=== PATIENT | male | born 1955 | race Caucasian/White ===

== ENCOUNTER 2024-06-26 20:30 | Inpatient (IN) | payer OTHER, SELFPAY ==
[2024-06-26] VITALS (7 sets, daily range): BP systolic 137–175; BP diastolic 82–112; BMI 23.5; BMI 23.8
[2024-06-26 17:32] LABS: % Basophils 0.3 % (0-2); % Eosinophils 1.7 % (0-6); % Immature Granulocytes 0.4 % (0-0.5); % Lymphocytes 9.7 % (20.5-51.1); % Monocytes 13.2 % (1.7-9.3); % Neutrophils 74.7 % (42.2-75.2); Absolute Basophils 0.1 10^3/uL (0-0.2); Absolute Eosinophils 0.2 10^3/uL (0-0.7); Absolute Immature Granulocytes 0.1 10^3/uL (0-0.05); Absolute Lymphocytes 1.4 10^3/uL (1.2-3.4); Absolute Monocytes 1.9 10^3/uL (0.1-0.6); Absolute Neutrophils 10.8 10^3/uL (1.4-6.5); Hematocrit 42.4 % (39.0-52.0); Hemoglobin 14.6 g/dL (13.0-18.0); Mean Corp Hgb Conc. 34.4 g/dL (33.0-37.0); Mean Corpuscular Hgb 29.6 pg (27.0-31.0); Mean Corpuscular Volume 85.8 fL (80.0-94.0); Mean Platelet Volume 10.1 fL (7.4-10.4); Nucleated Red Blood Cells % 0 % (-); Platelet Count 248 10^3/uL (130-400); Red Blood Cell Count 4.94 10^6/uL (4.70-6.10); Red Cell Dist. Width 13.7 % (11.5-14.5); White Blood Cell Count 14.4 10^3/uL (4.8-10.8)
[2024-06-26 17:39] LABS: Urine Albumin Trace (Neg - Trace); Urine Bilirubin Negative (Negative); Urine Character Clear (Clear); Urine Color Yellow; Urine Glucose Negative (Negative); Urine Ketone Negative (Negative); Urine Leukocyte Negative (Negative); Urine Nitrite Negative (Negative); Urine Occult Blood 4+ (Negative); Urine Specific Gravity 1.015 (<1.030); Urine Urobilinogen Negative (Neg - 1+)
[2024-06-26 17:41] LABS: ALT (SGPT) 31 U/L (0-50); AST (SGOT) 32 U/L (17-59); Albumin 4.2 g/dl (3.5-5.0); Alkaline Phosphatase 59 U/L (38-126); Blood Urea Nitrogen 31 mg/dl (9-20); Calcium 9.5 mg/dl (8.4-10.2); Carbon Dioxide 25 mmol/L (22-30); Chloride 101 mmol/L (98-107); Estimated Creatinine Clearance 45 ml/min; Glucose 120 mg/dl (70-99); Potassium 4.1 mmol/L (3.5-5.1); Sodium 141 mmol/L (135-145); Total Bilirubin 0.6 mg/dl (0.2-1.3); Total Protein 7.2 g/dl (6.3-8.2); eGFR 42.57
[2024-06-26 17:52] LABS: Urine Red Blood Cell 70-80 /HPF (0-2)
--- NOTE | 2024-06-26 18:27 | ED.GENMED ---
History of Present Illness
General
Chief Complaint: Urinary Symptoms
Source: patient
Exam Limitations: none
Time Seen by Provider: 06/26/24 17:38
Nursing documentation reviewed up to this point in time: agreed with
History of Present Illness
History of Present Illness:
Patient is a 69-year-old male with history of hemophilia, GERD presenting to the emergency department urinary discomfort. Patient states that over the past week he has been experiencing urinary hesitancy, frequency, urgency. He was seen by his
primary care last Friday where urinalysis performed and he was started on ciprofloxacin for a UTI. The urine culture showed bacteria was resistant to ciprofloxacin and patient was switched to amoxicillin 2 days ago. However�patient states symptoms
have persisted and he came to the emergency department for further evaluation. Patient reports a lingering feeling that he is not emptying his bladder and persistent urgency/hesitancy, urinary frequency. He denies any dysuria or hematuria.
Patient endorses associated low back pain and lower abdominal pain. He did have a low-grade temperature of 99.6F today at home for which she took Tylenol. Patient denies any nausea/vomiting.
Patient denies any history of kidney stones
Review of Systems
Review of Systems
Allergies reviewed?: Yes
All Other Systems: ROS reviewed and negative except as documented in HPI and ROS
Phy Exam
Physical Exam
Physical Exam:
Vitals: Tachycardic, hypertensive, otherwise vital signs stable. Afebrile
General: Patient is well appearing, no acute distress. Nontoxic-appearing
Skin: Warm and dry, no rashes or lesions
Head: Normocephalic, atraumatic
Eyes: Sclera nonicteric. EOMs intact. No nystagmus.
Throat: Protecting airway
Neck: Normal ROM, no cervical spine tenderness, no meningismus
Cardiac: Tachycardic, irregular rhythm, no murmurs.
Pulm: Normal respiratory effort, no wheezes, rales, rhonchi heard on exam.
Abdomen: Abdomen soft. Mildly distended. Mild abdominal tenderness in lower abdomen without rebound tenderness or guarding. No CVA tenderness
Extremities: No evidence of cyanosis or edema. Palpable distal pulses
Neuro: AAOx3. Grossly intact.
Psychiatric: Normal affect.
Sepsis
Sepsis Screening
Sepsis Assessment: Sepsis Ruled Out
Sepsis Screen
Sepsis Screen: Sepsis Ruled Out
Date: 06/26/24
Time: 21:48
Course
Orders/Labs/Results
Orders:
Orders
06/26/24 Breakfast
Cholesterol Lowering
Cholesterol Lowering: Sodium, 2 Gram
06/26/24 17:09
Complete Blood Count/With Diff Urgent
Comprehensive Metabolic Panel Urgent
06/26/24 17:22
Urinalysis Reflex To Culture Urgent
Date Specimen was Collected: 06/26/24
Time Specimen was Collected: 17:11
Urine Microscopic Reflex Cult Urgent
06/26/24 18:22
Abdomen/Pelvis wo Contrast CT [CT Abd/pelvis Wo Iv Cont] Urgent
Comment:
Reason For Exam: Lower abd pain, urinary hesitancy, low back pain
0.9% Sodium Chloride 1000 ml [Nss] 1,000 ml IV BOLUS
06/26/24 18:25
Electrocardiogram (*1) Urgent
Reason for Study: Bradycardia / Tachycardia
EKG- Treatment ONCE
06/26/24 19:08
Ritchie Placement- Treatment ONCE
Reason for insertion: Acute Retention
Metoprolol [Lopressor] 5 mg IV NOW STA
06/26/24 20:19
Admit/Transfer Patient As Directed
Co-Sign Provider:
Level of Care: Inpatient admission
Assign to:: Telemetry
Physician / Group: [email or web address]
Diagnosis: obstructive JUAN moderate bilateral hydroureteronephrosis Bladder outlet obs
Reason for Telemetry: Arrhythmia
Date to Stop Telemetry: 06/29/24
Time to Stop Telemetry: 11:00
Reason for Hospitalization: obstructive JUAN
moderate bilateral hydroureteronephrosis
Bladder outlet obstruction
fast AF
HX Hemophillia
Expected length of stay greater than two midnights?: Yes
ELOS- Estimated Length of Stay in days: 3
I certify the patient meets the requirements for IP care: Yes
06/26/24 20:23
Code Status As Directed
Resuscitation Status: Full Code
06/26/24 21:21
0.9% Sodium Chloride 1000 ml [Nss] 1,000 ml IV 80 mls/hr
Bisacodyl [Dulcolax] 10 mg PO DAILYPRN PRN
Bisacodyl [Dulcolax] 10 mg RECTAL [id number] PRN
Docusate W/Senna [Senokot-S] 1 tablet PO BIDPRN PRN
Metoprolol [Lopressor] 5 mg IV Q4HPRN PRN
Polyethylene Glycol Powder [Miralax] 17 grams PO DAILYPRN PRN
Pravastatin Sodium [Pravachol] 20 mg PO Q48H
phenazopyridine 95 mg PO DAILYPRN PRN
06/26/24 21:21
CARDIOLOGY CONSULT Routine
Consulting Provider: Stas Wen
Was physician already notified: Yes
Reason for consult: fast AF, nl LVEF, Obstrutive nephro , Mod b/l HN, CT suggest Bladder outlet
ONCOLOGY CONSULT Routine
Consulting Provider: Jez Orozco
Was physician already notified: Yes
Reason for consult: Hemophilia, Obstrutive nephro , Mod b/l HN, CT suggest Bladder outlet Obst
UROLOGY CONSULT Routine
Consulting Provider: Farhad Kim
Was physician already notified: Yes
Comment: Obstrutive nephro , Mod b/l HN, CT suggest Bladder outlet Obst
Activity As Directed
Activity Level: With Assistance
Intake/ Output As Directed
Frequency: Per unit guidelines
Pneumatic Compression Sleeves As Directed
Type: Knee high
Vital Signs As Directed
Frequency: Per unit guidelines
Weight As Directed
Frequency: Daily
DX Deep Vein Thrombosis Video Routine
06/26/24 22:00
Acetaminophen [Tylenol] 650 mg PO TID
Diltiazem [Cardizem] 30 mg PO QID
06/27/24 06:00
Basic Metabolic Panel IN AM
Complete Blood Count/No Diff IN AM
PTT IN AM
Prothrombin Time IN AM
06/29/24 11:00
DC Protocol for Telemetry ONCE
Abnormal Lab Results
06/26/24 06/26/24
17:09 17:22
WBC 14.4 H 10^3/uL
(4.8-10.8)
Abs Immat Gran (auto) 0.1 H 10^3/uL
(0-0.05)
Absolute Neuts (auto) 10.8 H 10^3/uL
(1.4-6.5)
Absolute Monos (auto) 1.9 H 10^3/uL
(0.1-0.6)
Lymphocytes % 9.7 L %
(20.5-51.1)
Monocytes % 13.2 H %
(1.7-9.3)
BUN 31 H mg/dl
(9-20)
Creatinine 1.7 H mg/dL
(0.7-1.3)
Glucose 120 H mg/dl
(70-99)
Ur Occult Blood Reflex 4+ A
(Negative)
Urine RBC 70-80 A /HPF
(0-2)
06/26/24 17:09
06/26/24 17:09
Vital Signs
Initial and Last Documented VS:
Initial Vital Signs
Temp Pulse Resp BP Pulse Ox
98.3 F 117 20 163/108 98
06/26/24 16:42 06/26/24 16:42 06/26/24 16:42 06/26/24 16:42 06/26/24 16:42
Last Documented Vital Signs
Temp Pulse Resp BP Pulse Ox
98.7 F 111 16 152/104 94
06/26/24 21:20 06/26/24 21:20 06/26/24 21:20 06/26/24 21:20 06/26/24 21:20
MDM/Problems Addressed
Differential Diagnosis Includes:
Not limited to: Cystitis, pyelonephritis, kidney stone, prostatitis, diverticulitis, appendicitis,
MDM/Problems Addressed:
Patient is a 69-year-old male presenting with urinary hesitancy/urgency currently being treated for UTI for the past week. Reports abdominal discomfort along with low back pain. Low-grade temp at home. No nausea/vomiting. Patient hypertensive
and tachycardic on arrival. He is afebrile. Physical exam as above. Basic labs obtained in triage significant for leukocytosis of 14.4. Renal insufficiency noted with creatinine of 1.7�no baseline for comparison. Otherwise no clinically
significant abnormalities. Urinalysis shows no signs of infection, however 70�80 RBCs. Did review urinalysis performed last week by PCP�which on my assessment is not consistent with UTI. Given creatinine elevation with persistent urinary
symptoms�concern for possibly obstructive process. Will obtain noncontrast CT abdomen/pelvis to rule out kidney stone versus other obstructive process. Given tachycardia and irregular rhythm seen on monitor�will obtain EKG.
EKG confirms new onset atrial fibrillation. Heart rate seems to range from upper 90s�110s. Patient is hypertensive. Will give [address] shows bilateral hydronephrosis and significant distention of urinary bladder likely secondary to
urinary bladder outlet obstruction from prostate gland enlargement.
Patient is in acute urinary retention with renal insufficiency likely obstructive JUAN. A Ritchie catheter was placed by nursing which drained 1800 cc of urine. Patient with immediate relief in discomfort. Given acute urinary retention with renal
insufficiency along with presumed new onset atrial fibrillation�feel patient will benefit from admission to the hospital for creatinine trending along with rate/rhythm control of atrial fibrillation. Patient does have a history of hemophilia and
may need hematology input prior to anticoagulation initiation. Patient admitted to hospital service in stable condition. Case discussed with attending physician.
Chronic conditions affecting care:
N/A
Acute Exacerbation and/or Progression of Chronic Illness:
N/A
*Radiology
Radiology exam reviewed: preliminary read by ED provider and radiology read reviewed (Bilateral hydro ureter and significant bladder distention)
*Pulse Oximetry
Patient hypoxic: no
*EKG
Interpreted by ED Provider?: Yes
EKG Intrepretation Date: 06/26/24
Interpretation: abnormal
Comparison EKG: no comparison EKG present
Heart Rate: 109
Rate: tachycardiac
Rhythm: a-fib
Gore: normal axis
Interval: normal interval
QRS Pattern: normal QRS
Ischemia: no ischemia
*Cylinder Machine Operator Interpretation
Rate: tachycardiac
Interpretation: abnormal
Heart Rate: 104
*Critical Care Note
Total Time (30-74mins, 75-104mins- exclusive of procedures): Not Applicable
Data Reviewed
Review of Other/Old Records Reveals: Labs (Urinalysis performed outpatient last week -not consistent with UTI)
Patient Management
Discussion with other providers: Hospitalist
Escalation/DeEscalation of care consider admission/obs:
Admit for rate/rhythm control of new onset atrial fibrillation/further monitoring/trending of renal insufficiency
ED Attending Note
-
Portions of this chart may have been created with voice recognition software.� Occasional wrong word or��sound alike� substitutions may have occurred due to the inherent limitations of voice recognition software.
Discharge Plan
Departure
Patient Disposition: Admit
Date of Disposition: 06/26/24
Time of Disposition: 19:36
Presentation/result/management discussed w/ accepting MD/DO: Hospitalist
Discharge Problem:
Acute urinary retention, Atrial fibrillation, new onset, Acute renal failure due to urinary obstruction
Interventions
Interventions:
*Risk Screen - Suicide Last Done: 06/26/24 17:20
*General Assessment Last Done: 06/26/24 16:42
*Neglect/Abuse Screening Last Done: 06/26/24 17:20
ED- Fall Risk Assessment Last Done: 06/26/24 17:20
*ED COVID-19 Vaccine History Last Done: 06/26/24 17:20
*Nursing Disposition Last Done: 06/26/24 21:00
ED-Male Genitourinary Assessment Last Done: 06/26/24 17:20
Discharge Date and Time
Discharge Date/Time: 06/26/24 21:02
[2024-06-26] MEDS: NSS 1000 IV ×2 (18:28→22:24)
[2024-06-26] MEDS: LOPRESSOR 5 MG IV (19:27)
--- NOTE | 2024-06-26 20:12 | HPS.HSE ---
Addendum entered and electronically signed by Yonas Bowen MD 06/26/24 22:26:
Uro, Heme abd CBC card consulted
Original Note:
Family Physician
-
Family Physician: Manoj Pinto
Chief Complaint
-
urinary discomfort
History of Present Illness
HPI
69M HX hemophilia, HLD, GERD, HX Kidney stones pw urinary discomfort.
- report urinary hesitancy, frequency, urgency over last week
- seen by PCP last Friday ( 06/21/24 ) POS UA and on ciprofloxacin for a UTI.
- POS UCX but bacteria resistant to ciprofloxacin and patient was switched to amoxicillin 2 days ago
- reports symptoms have persisted and he came to the emergency department for further evaluation.
- report low-grade temperature of 99.6F today at home for which she took Tylenol.
ROS:
- denies any hematuria.
- denies any nausea/vomiting.
Medical History
Past Medical History
Past Medical History: Reports GERD, Hypercholesterolemia and Other (hemophilia )
Past Surgical History: Reports Other
Social History
Tobacco: Non-smoker
Alcohol: None
Drug: None
Family History
Family History: Not pertinent
Allergies / Home Medications
Allergies reflects when Allergies were last updated in [facility].
Home Medications with original date entered in [facility]
Allergy/Medication List:
Allergies
Allergy/AdvReac Type Severity Reaction Status Date / Time
simvastatin Allergy Unknown Verified 06/26/24 18:25
Home Medications
cholecalciferol (vitamin D3) 25 mcg (1,000 unit) tablet (Vitamin D3) 25 mcg PO DAILY 05/05/23
pravastatin 10 mg tablet 20 mg PO Q48H 05/05/23
acetaminophen 325 mg tablet (Tylenol) 650 mg PO TID 06/26/24
amoxicillin 500 mg tablet 500 mg PO Q8H 06/26/24
bisacodyl 5 mg tablet,delayed release (Dulcolax (bisacodyl)) 10 mg PO DAILYPRN PRN CONSTIPATION 06/26/24
phenazopyridine 95 mg tablet 95 mg PO DAILYPRN PRN MILD PAIN 06/26/24
Review of Systems
-
Constitutional: Reports No Symptoms
EENT: Reports No Symptoms
Respiratory: Reports No Symptoms
Cardiac: Reports No Symptoms
Abdomen/GI: Reports No Symptoms
: Reports See HPI, Dysuria and Urgency
Musculoskeletal: Reports No Symptoms
Skin: Reports No Symptoms
Neurological: Reports No Symptoms
Endocrine: Reports No Symptoms
Hematologic/Lymphatic: Reports No Symptoms
Psych: Reports No Symptoms
Physical Exam
Vital Signs
Vital Signs
Temp Pulse Resp BP Pulse Ox
98.3 F 122 13 162/112 100
06/26/24 16:42 06/26/24 19:27 06/26/24 19:00 06/26/24 19:27 06/26/24 19:00
Physical Exam
General: Well Developed, Well Nourished and No Apparent Distress
HEENT: NormoCephalic, Moist mucous membranes and Atraumatic
Respiratory: Clear
Cardiac: S1/S2 and Regular Rhythm; No Murmur or Rub
GI: Soft, Non Tender, Non Distended and Normal Bowel Sounds; No Organomegaly
Rectal: Deferred by Provider
Musculoskeletal: No Clubbing, No Cyanosis and No Edema
Skin: No Rash
Neuro: Nonfocal/grossly intact
Laboratory Results
-
06/26/24 17:09
06/26/24 17:09
Laboratory Results
Total Bilirubin 0.6 mg/dl (0.2-1.3) 06/26/24 17:09
AST 32 U/L (17-59) 06/26/24 17:09
ALT 31 U/L (0-50) 06/26/24 17:09
Alkaline Phosphatase 59 U/L (38-126) 06/26/24 17:09
Data Reviewed
-
CT Scan: Report Reviewed by me
Lab Data: Labs Reviewed by me
Impression/Plan
-
Reviewed VS: afebrile HR 122 BP 162/112 RR13 POx 100
Data
WCC 14.4
BUN 31
Cr 1.7 - no prior Cr
eGFR 45
UA : Many RBCS. WCC 3-5
CT Abd/pelvis Wo Iv Cont
Moderate bilateral hydroureteronephrosis and significant distention of the urinary bladder.
Findings suggest urinary bladder outlet obstruction and may be secondary to prostate gland enlargement.
EKG
ATRIAL FIBRILLATION WITH RAPID VENTRICULAR RESPONSE
ABNORMAL ECG
NO PREVIOUS ECGS AVAILABLE
10/30/18 TTE
Normal biventricular size and systolic function without regional wall motion abnormality.
Mild mitral regurgitation.
No prior study available for comparison.
No prior hospitalist admission:
ASSESSMENT & PLAN
UA not suggestive of UTI
Reports POS UCX for Enterococcus Faecalis resistant to ciprofloxacin and patient was switched to amoxicillin 2 days ago
- stop Augmentin
Acute bladder retention - drained 1.8 L with F cath placement
Renal insufficiency - Presumed obstructive JUAN
POS CT for moderate bilateral hydroureteronephrosis and significant distention of the urinary bladder.
Suggestive of Bladder outlet obstruction and may be secondary to prostate gland enlargement.
Of note; No prior baseline Cr data
- IVF
- c/w Phenazopyridine
- Urologist consult
Fast AF
Hemodynamically stable
Remote HX nl LVEF
- PO Diltiazem 30mg q6H
- IV Metoprolol 5mg q6h PRN > HR 125
- CBC card consult
HX Hereditary Hemophilia f/u at [facility] Manager Communication
- No active bleeding
- Heme consult in case AC indicated for A Fib
HLD on Pravastatin
DVT Px: SCD
Full code
IP MS
[2024-06-26] MEDS: CARDIZEM 30 MG PO (22:24)
--- NOTE | 2024-06-26 22:48 | PTCARENOTE ---
Patient received from emergency department. Vital signs and weight obtained. Medications reviewed with patient. Upon admission, patient expressed concerns about his amoxicillin and when he would receive his next dose. RN explained to him that
amoxicillin was not ordered based off of UA results per the provider`s history and physical note. Patient was still concerned about drug resistant organisms, concern passed to LEAD NURSE. Education reinforced
[2024-06-27 03:26] VITALS: BP 117/73
[2024-06-27 06:00] VITALS: BMI 23.6
[2024-06-27 06:50] LABS: INR 1.01; PT 13.6 Sec (11.4-14.6)
[2024-06-27 06:51] LABS: APTT 58.1 Sec (23.4-35.0)
[2024-06-27 07:00] VITALS: BP 126/81
[2024-06-27 07:03] LABS: Hematocrit 38.9 % (39.0-52.0); Hemoglobin 12.9 g/dL (13.0-18.0); Mean Corp Hgb Conc. 33.2 g/dL (33.0-37.0); Mean Corpuscular Hgb 29.8 pg (27.0-31.0); Mean Corpuscular Volume 89.8 fL (80.0-94.0); Mean Platelet Volume 10.2 fL (7.4-10.4); Platelet Count 213 10^3/uL (130-400); Red Blood Cell Count 4.33 10^6/uL (4.70-6.10); Red Cell Dist. Width 13.8 % (11.5-14.5); White Blood Cell Count 8.7 10^3/uL (4.8-10.8)
[2024-06-27 07:28] LABS: Blood Urea Nitrogen 26 mg/dl (9-20); Calcium 8.6 mg/dl (8.4-10.2); Carbon Dioxide 27 mmol/L (22-30); Chloride 108 mmol/L (98-107); Estimated Creatinine Clearance 55 ml/min; Glucose 94 mg/dl (70-99); Sodium 145 mmol/L (135-145); eGFR 53.74
[2024-06-27 07:34] LABS: Potassium 4.3 mmol/L (3.5-5.1)
[2024-06-27] MEDS: CARDIZEM 30 MG PO (09:03)
[2024-06-27] MEDS: NSS 1000 IV (09:38)
--- NOTE | 2024-06-27 11:11 | CONS.URO ---
Medical History
History of Present Illness
69M without prior urologic history, hx of hemophilia
Has routine prostate cancer screening with his PCP yearly - hx of normal DREs and PSAs in the past year
Some worsening BPH symptoms over past 2 years - slow stream, hesitancy, nocturia
Last week was dx with his first ever UTI and started on cipro
2 days ago switched to amoxicillin for Enterococcus per sensitivity testing
He presented to ER with persistent and worsening urinary symptoms and was admitted due to JUAN
CT showed severe bladder distension with bilateral hydroureteronephrosis likely due to reflux
Osman was placed with 1800cc output
Had rapid afib which improved after osman placement
Urology consulted for further recs
Past Medical History
Past Medical History: GERD, Hypercholesterolemia and Other (Hemophilia)
Social History
Tobacco: Non-smoker
Alcohol: None
Drug: None
Family History
Family History: Reviewed & Not Pertinent
Allergies/Home Medications
Allergies
Allergy/AdvReac Type Severity Reaction Status Date / Time
simvastatin Allergy Unknown Verified 06/26/24 18:25
Home Medications
�Medication �Instructions �Recorded �Confirmed �Type
cholecalciferol (vitamin D3) 25 25 mcg PO DAILY 05/05/23 06/26/24 History
mcg (1,000 unit) tablet (Vitamin
D3)
pravastatin 10 mg tablet 20 mg PO Q48H 05/05/23 06/26/24 History
acetaminophen 325 mg tablet 650 mg PO TID 06/26/24 06/26/24 History
(Tylenol)
amoxicillin 500 mg tablet 500 mg PO Q8H 06/26/24 06/26/24 History
bisacodyl 5 mg tablet,delayed 10 mg PO DAILYPRN PRN CONSTIPATION 06/26/24 06/26/24 History
release (Dulcolax (bisacodyl))
phenazopyridine 95 mg tablet 95 mg PO DAILYPRN PRN MILD PAIN 06/26/24 06/26/24 History
Physical Exam
Vital Signs
Vital Signs
Temp Pulse Resp BP Pulse Ox
98.7 F 97 18 126/81 97
06/27/24 07:00 06/27/24 07:00 06/27/24 07:00 06/27/24 07:00 06/27/24 08:45
Lab / Testing Results
Laboratory Results
06/27/24 06:34
06/27/24 06:34
Physical Exam
General: Well Developed, Well Nourished and No Apparent Distress
Respiratory: Clear and Non Labored Respirations
GI: Non Distended
Genito-urinary: Clear Urine and Osman Catheter
Skin: Warm and Dry
Neuro: AO x 3
Psych: Calm and Intact Judgement
Assessment / Plan
-
69M with hemophilia admitted with urinary retention with bilateral moderate hydronephrosis, likely reflux uropathy
Enterococcus UTI
Elevated creatinine 1.7 without known baseline
Catheter placed for 1800cc urine output
81cc prostate volume
- Recommend 10 day total antibiotic course for culture confirmed enterococcus UTI/prostatitis. Continue amoxicillin 500mg Q8 through 07/04
- Hydronephrosis likely due to ureteral reflux. Assuming improvement in JUAN here will reimage in outpatient follow up to confirm full resolution
- Maintain osman for 10-14 days to allow bladder decompression and healing
- Start tamsulosin 0.4mg daily and continue at discharge
- Outpatient trial of void and further discussion of intervention options if retention persists
Data Reviewed
-
CT Scan: Image personally visualized and interpreted
Lab Data: Labs Reviewed
--- NOTE | 2024-06-27 11:26 | CON.ONC ---
Plan
Plan
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
maintenance factor replacement based on levels he measured last year ( updated testing ordered) though with low CHADS-VASC score 1 may be able to avoid A/C and bleed risk moderate based on HAS-BLED scores that would be reasonable--
Patient History
Patient Medication
�Medication �Instructions �Recorded �Confirmed �Last Taken �Type
cholecalciferol (vitamin D3) 25 25 mcg PO DAILY 05/05/23 06/26/24 06/25/24 History
mcg (1,000 unit) tablet (Vitamin
D3)
pravastatin 10 mg tablet 20 mg PO Q48H 05/05/23 06/26/24 06/25/24 History
acetaminophen 325 mg tablet 650 mg PO TID 06/26/24 06/26/24 06/26/24 History
(Tylenol)
amoxicillin 500 mg tablet 500 mg PO Q8H 06/26/24 06/26/24 06/26/24 History
bisacodyl 5 mg tablet,delayed 10 mg PO DAILYPRN PRN CONSTIPATION 06/26/24 06/26/24 06/26/24 History
release (Dulcolax (bisacodyl))
phenazopyridine 95 mg tablet 95 mg PO DAILYPRN PRN MILD PAIN 06/26/24 06/26/24 06/21/24 History
Active Medications
Generic Name Dose Route Start Last Admin
Trade Name Freq PRN Reason Stop Dose Admin
Acetaminophen 650 mg 06/26/24 22:00
Acetaminophen 325 Mg Tablet PO 07/24/24 21:59
TIDPRN PRN
MILD PAIN
Bisacodyl 10 mg 06/26/24 21:21
Bisacodyl 5 Mg Enteric Coated Tablet PO 07/24/24 21:20
DAILYPRN PRN
CONSTIPATION
Bisacodyl 10 mg 06/26/24 21:21
Bisacodyl 10 Mg Rectal Suppository RECTAL 07/24/24 21:20
[id number] PRN
constipation
Diltiazem HCl 30 mg 06/26/24 22:00 06/27/24 09:03
Diltiazem 30 Mg Regular Release Tablet PO 07/24/24 21:59 30 mg
QID BRITANY Administration
Sodium Chloride 1,000 mls @ 80 mls/hr 06/26/24 21:21 06/27/24 09:38
Nss IV 1,000 mls
[id number] BRITANY Administration
Metoprolol Tartrate 5 mg 06/26/24 21:21
Metoprolol 5 Mg/5 Ml Vial IV 07/24/24 21:20
Q4HPRN PRN
HR > 125
Phenazopyridine HCl 100 mg 06/26/24 21:57
Phenazopyridine 100 Mg Tablet PO 07/24/24 21:56
DAILYPRN PRN
DYSURIA
Polyethylene Glycol 17 grams 06/26/24 21:21
Polyethylene Glycol Powder 17 Grams Packet PO 07/24/24 21:20
DAILYPRN PRN
constipation
Pravastatin Sodium 20 mg 06/27/24 18:00
Pravastatin 20 Mg Tablet PO 07/25/24 17:59
Q48H BRITANY
Senna/Docusate Sodium 1 tablet 06/26/24 21:21
Docusate W/Senna (Dagmar-Colace) Tablet PO 07/24/24 21:20
BIDPRN PRN
constipation
Sodium Chloride 0 flush 06/26/24 22:00
Sodium Chloride 0.9% (Flush) Syringe IV 07/24/24 21:59
PER PROTOCOL BRITANY
Physical Exam
Labs
Lab Results
WBC 8.7 10^3/uL (4.8-10.8) 11/10/24 06:34
RBC 4.33 10^6/uL (4.70-6.10) L 06/27/24 06:34
Hgb 12.9 g/dL (13.0-18.0) L 06/27/24 06:34
Hct 38.9 % (39.0-52.0) L 06/27/24 06:34
MCV 89.8 fL (80.0-94.0) 06/27/24 06:34
MCH 29.8 pg (27.0-31.0) 06/27/24 06:34
MCHC 33.2 g/dL (33.0-37.0) 06/27/24 06:34
RDW 13.8 % (11.5-14.5) 06/27/24 06:34
Plt Count 213 10^3/uL (130-400) 06/27/24 06:34
MPV 10.2 fL (7.4-10.4) 06/27/24 06:34
Abs Immat Gran (auto) 0.1 10^3/uL (0-0.05) H 06/26/24 17:09
Absolute Neuts (auto) 10.8 10^3/uL (1.4-6.5) H 06/26/24 17:09
Absolute Lymphs (auto) 1.4 10^3/uL (1.2-3.4) 06/26/24 17:09
Absolute Monos (auto) 1.9 10^3/uL (0.1-0.6) H 06/26/24 17:09
Absolute Eos (auto) 0.2 10^3/uL (0-0.7) 06/26/24 17:09
Absolute Basos (auto) 0.1 10^3/uL (0-0.2) 06/26/24 17:09
Immature Gran % 0.4 % (0-0.5) 06/26/24 17:09
Neutrophils % 74.7 % (42.2-75.2) 06/26/24 17:09
Lymphocytes % 9.7 % (20.5-51.1) L 06/26/24 17:09
Monocytes % 13.2 % (1.7-9.3) H 06/26/24 17:09
Eosinophils % 1.7 % (0-6) 06/26/24 17:09
Basophils % 0.3 % (0-2) 06/26/24 17:09
Creatinine 1.4 mg/dL (0.7-1.3) H 06/27/24 06:34
Vital Signs
Vital Signs
Temp Pulse Resp BP Pulse Ox
98.7 F 97 18 126/81 97
06/27/24 07:00 06/27/24 07:00 06/27/24 07:00 06/27/24 07:00 06/27/24 08:45
--- NOTE | 2024-06-27 12:00 | W.PN.HOSP.TC ---
Today's Communication/Plan
-
osman
antibiotics
stop ivf
rate control
2d echo
uro, heme and cards to see
Assessment / Plan
Assessment / Plan
Imaging
CTAP
IMPRESSION:
Moderate bilateral hydroureteronephrosis and significant distention of the urinary bladder. Findings suggest urinary bladder outlet obstruction and may be secondary to prostate gland enlargement.
Cr trend
1.7 to 1.4
EKG
Afib with RVR
Physical Exam
NAD, resting comfortably in bed
Scleral anicteric
Moist mucous membranes
No JVD
CTA bilateral
Normal S1-S2 no murmurs
Soft nontender nondistended bowel sounds active
No peripheral pitting edema
Moves extremities spontaneously
AAOx3
Assessment and Plan
JUAN secondary to Obstructive uropathy in the setting of acute urinary retention from BPH vs UTI/Prostatitis
-Unknown baseline Cr
-Monitor UOP
-Osman placed
-Avoid nephrotoxins and hypotension
-Follow renal function
-Uro following, started atb
Afib RVR
-uncontrolled rate
-monitor on tele
-po ccb qid ordered
-iv bb prn
-2d echo
-has hemophilia hx, therefore, heme and cards consulted to discuss AC rec's
Hemophilia
-Follows with [facility]
-Outpatient follow up
HLD
-Cotinie statin
Anticipated Discharge: 24 - 48 hours
Subjective/Interval History
-
Date of Service: June 27, 2024
Seen and examined. No new complaints. No acute overnight events
States that he is feeling significantly better improved comfort after Osman placement
States initially believed it was related to UTI. Urinating every hour for about for 15seconds
Objective Data
-
Labs:
Laboratory Results
06/27/24
06:34
WBC 8.7
Hgb 12.9 L
Hct 38.9 L
Plt Count 213
PT 13.6
INR 1.01
APTT 58.1 H
Sodium 145
Potassium 4.3
Chloride 108 H
Carbon Dioxide 27
BUN 26 H
Creatinine 1.4 H
Glucose 94
Calcium 8.6
Vital Signs:
Vital Signs
Temp Pulse Resp BP Pulse Ox
98.7 F 97 18 126/81 97
06/27/24 07:00 06/27/24 07:00 06/27/24 07:00 06/27/24 07:00 06/27/24 08:45
I&O
06/26/24 06/27/24 06/28/24
06:59 06:59 06:59
Output Total 2450 / 2450
Balance -2450 / -2450
[2024-06-27] MEDS: AMOXIL 500 MG PO ×2 (12:09→20:14)
[2024-06-27 12:10] VITALS: BP 143/74
--- NOTE | 2024-06-27 12:29 | CON.CAR ---
Consultation
Consultation Request
Date/Time Consultation Requested: 06/26/2024 at 2121 hrs
Date/Time Consultation Performed: 06/27/2024 at 1200 hrs
Requesting Provider: Yonas Bowen MD
Performing Provider: Stas Wen MD
Reason for Consultation: AFib, RVR with hemophilia
Medical History
-
Chief Complaint: presented to ER with urinary symptoms. AFib seen and consult requested
History of Present Illness:
Pt presented to ER for urinary symptoms.
Known UTI, BPH and urinary retention with hydro found.
No cardiac complaints.
-
-
Past Medical History
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
Past Surgical History: None (at age 21 spontaneous pneumothorax)
Social History
Tobacco: Smoker
Alcohol: Other (rare 1 every 2 weeks)
Drug: None
Living: With Family
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
Family History
Family History: CAD (father sudden presumed DC at 60)
Allergies / Home Medications
Allergy/AdvReac Type Severity Reaction Status Date / Time
simvastatin Allergy Unknown Verified 06/26/24 18:25
�Medication �Instructions �Recorded �Confirmed �Type
cholecalciferol (vitamin D3) 25 25 mcg PO DAILY 05/05/23 06/26/24 History
mcg (1,000 unit) tablet (Vitamin
D3)
pravastatin 10 mg tablet 20 mg PO Q48H 05/05/23 06/26/24 History
acetaminophen 325 mg tablet 650 mg PO TID 06/26/24 06/26/24 History
(Tylenol)
amoxicillin 500 mg tablet 500 mg PO Q8H 06/26/24 06/26/24 History
bisacodyl 5 mg tablet,delayed 10 mg PO DAILYPRN PRN CONSTIPATION 06/26/24 06/26/24 History
release (Dulcolax (bisacodyl))
phenazopyridine 95 mg tablet 95 mg PO DAILYPRN PRN MILD PAIN 06/26/24 06/26/24 History
Review of Systems
-
Respiratory: No Symptoms
Cardiac: No Symptoms
Physical Exam
Vital Signs
Temp Pulse Resp BP Pulse Ox
98.6 F 86 16 143/74 99
06/27/24 12:10 06/27/24 12:10 06/27/24 12:10 06/27/24 12:10 06/27/24 12:10
Lab Results
06/27/24 06:34
06/27/24 06:34
Physical Exam
General: Well Developed and Well Nourished
HEENT: Normocephalic and Anicteric
Respiratory: Clear
Cardiac: S1/S2 and Irregular Rhythm
GI: Soft and Non Tender
Genito-urinary: No Costovertebral Tender
Musculoskeletal: No Clubbing, No Cyanosis and No Edema
Skin: Warm and Dry
Neuro: AO x 3 and No Motor Deficits
Psych: Calm
Impression / Plan
-
AFib, asymptomatic, duration unknown
- Rate over 100 here
- Rhythm: so far persisting, pattern unknown
- [id number] is 1 at age 69.
- Hemophilia adds risk and complexity to management. See: https://haematologica.org/article/view/haematol.2021.799517 for a very nice discusison
- For now with his risk score I favor no anticoagulant
- Given his lack of symptoms I favor only rate control
- Some would be more aggressive and seek ablation and/or left atrial occlusion: I suggested discussion with his manager solution and a second opinion with another EP, perhaps downtown at [facility]
- All aspects of AFib reviewed with pt and his son. More than 75 min spent caring for pt today
- Will pursue standard rate control, echo, monitor rhythm. He will obtain a home ekg machine, Laverna
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
JUAN presumable from obstruction
UTI
Urinary retention
BPH
Mixed hyperlipidemia
Subjective:
No CP, palps, or dyspnea
Data Reviewed
-
EKG: Tracing Personally Visualized and interpreted (AFib 109 bpm)
Radiology: Report Reviewed by me (CT abd/pelvis: Moderate bilateral hydroureteronephrosis and significant distention of the urinary bladder. Findings suggest urinary bladder outlet obstruction and may be secondary to prostate gland enlargement. e
abdominal aorta is normal in caliber and contains mild calcified atherosclerosis) and Other (Echo report 2019: Mild MR o/w normal.)
Labs: Other (Holter report: rare premature contractions, several short asymptomatic runs of AT)
--- NOTE | 2024-06-27 15:25 | CM ---
CM met with pt bedside
Pt resides with his spouse who is quadriplegic
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
Pt is independent with his ADLs
Denies use of DMEs and financial insecurities
PCP- Manoj Pinto
Rx- [facility]
Ritchie placed
Discharge Disposition- home, no needs anticipated
[2024-06-27 15:42] VITALS: BP 134/85
[2024-06-27] MEDS: PRAVACHOL 20 MG PO (17:01)
[2024-06-27 19:55] VITALS: BP 123/73
[2024-06-27] MEDS: TOPROL XL 50 MG PO (20:14)
[2024-06-27 22:14] VITALS: BP 153/92
[2024-06-27] MEDS: LOPRESSOR 5 MG IV (22:22)
[2024-06-28] MEDS: AMOXIL 500 MG PO ×2 (03:08→11:38)
[2024-06-28 03:32] VITALS: BP 136/93
[2024-06-28 03:33] VITALS: BMI 23.5
[2024-06-28 07:47] VITALS: BP 139/96
--- NOTE | 2024-06-28 08:22 | W.PN.URO.CBU ---
Today's Communication / Plan
-
Discharge with osman
Continue tamsulosin at discharge
Complete antibiotic course
Office will call to schedule follow up
Urology will sign off - please call with questions
Assessment / Plan
-
69M with hemophilia admitted with urinary retention with bilateral moderate hydronephrosis, likely reflux uropathy
Enterococcus UTI
Elevated creatinine 1.7 without known baseline
Catheter placed for 1800cc urine output
81cc prostate volume
- Recommend 10 day total antibiotic course for culture confirmed enterococcus UTI/prostatitis. Continue amoxicillin 500mg Q8 through 07/04
- Hydronephrosis likely due to ureteral reflux. With improvement in JUAN will plan to reimage in outpatient follow up to confirm full resolution
- Maintain osman for 10-14 days to allow bladder decompression and healing
- Start tamsulosin 0.4mg daily and continue at discharge
- Outpatient trial of void and further discussion of intervention options if retention persists
Office will call to schedule follow up
Diagnosis
-
Date of Service: June 28, 2024
-
Patient Diagnosis:
Urinary retention
Hydronephrosis
UTI
Post Op Day:
Subjective
-
Feeling well today
No catheter issues
Objective
-
Vital Signs
Temp Pulse Resp BP Pulse Ox
98.4 F 117 16 139/96 98
06/28/24 07:47 06/28/24 07:47 06/28/24 07:47 06/28/24 07:47 06/28/24 07:47
Intake and Output
06/27/24 06/28/24 06/29/24
06:59 06:59 06:59
Intake Total 1700 / 1700
Output Total 2450 / 2450 4050 / 4050
Balance -2450 / -2450 -2350 / -2350
Intake:
Oral fluids 1200 / 1200
IV fluids (Total) 500 / 500
Output:
Urine, Osman 2450 / 2450 1300 / 1300
Urine, Voided 2750 / 2750
Laboratory Results
06/27/24 06:34
06/27/24 06:34
Physical Exam
-
General - well developed, well nourished, no acute distress
Chest - clear
- osman in place, clear
[2024-06-28] MEDS: FLOMAX 0.4 MG PO (08:45)
[2024-06-28] MEDS: TOPROL XL 50 MG PO (08:45)
[2024-06-28 10:30] LABS: ALT (SGPT) 27 U/L (0-50); AST (SGOT) 25 U/L (17-59); Albumin 3.6 g/dl (3.5-5.0); Alkaline Phosphatase 51 U/L (38-126); Blood Urea Nitrogen 24 mg/dl (9-20); Calcium 9.2 mg/dl (8.4-10.2); Carbon Dioxide 25 mmol/L (22-30); Chloride 104 mmol/L (98-107); Estimated Creatinine Clearance 70 ml/min; Glucose 135 mg/dl (70-99); Hemoglobin 13.9 g/dL (13.0-18.0); Mean Corp Hgb Conc. 33.1 g/dL (33.0-37.0); Mean Corpuscular Hgb 29.7 pg (27.0-31.0); Mean Corpuscular Volume 89.7 fL (80.0-94.0); Mean Platelet Volume 9.9 fL (7.4-10.4); Platelet Count 262 10^3/uL (130-400); Potassium 4.4 mmol/L (3.5-5.1); Red Blood Cell Count 4.68 10^6/uL (4.70-6.10); Red Cell Dist. Width 13.8 % (11.5-14.5); Sodium 143 mmol/L (135-145); Total Bilirubin 0.5 mg/dl (0.2-1.3); Total Protein 6.3 g/dl (6.3-8.2); eGFR > 60.00
--- NOTE | 2024-06-28 10:47 | CM ---
CM reviewed chart, met with patient bedside, offered VN, patient declining. CM reviewed IMM, patient refused to sign, provided with copy. Patient confirms he has transportation home. CM will continue to follow for all discharge planning needs.
Plan; home no needs.
--- NOTE | 2024-06-28 10:56 | W.PN.HOSP.TC ---
Addendum entered and electronically signed by Isaias Graham MD 06/28/24 14:32:
seen and examined by me independently in collaboration with the vice president medical affairs.
Lab data and imaging data reviewed.
Addendum as below :
Patient tolerating Ritchie and urine is clear without bleeding or clots. No fever or chills. Appreciate nephrology input. Plan is to keep the Ritchie catheter. Initiated on BPH medication. Complete the course of antibiotics with amoxicillin till
07/04.
Atrial fibrillation which is new onset noted. Asymptomatic. Rate still in high 100s at times. Discussed with cardiology. Will add Cardizem CD1 20 mg daily to his beta-da regimen. [place] not a candidate for prophylaxis because of low
[id number] score of 1. follow-up with cardiology as outpatient.
Patient understands the new diagnoses, treatments and follow-up plan.
Total time of discharge 35 minutes
Original Note:
Today's Communication/Plan
-
Discharge home after echo on oral abx and rate control medications with Ritchie
O/P follow up with cardiology, urology and PCP
Assessment / Plan
Assessment / Plan
Assessment:
69 M PMH hemophilia B, HLD, GERD, kidney stones and recent UTI treatment found to have new onset B/L HUIZAR with hydronephrosis found to be in a-fib.
Plan:
#JUAN secondary to Obstructive uropathy in the setting of acute urinary retention from BPH vs UTI/Prostatitis
-Unknown baseline Cr
-Currently down to 1.1, likely resolved
-Monitor UOP
-Ritchie placed, will continue on D/C for 10-14 days
-Avoid nephrotoxins and hypotension
-Follow renal function
-Uro following
-started amoxicillin, day 2
-Uro recs 10 day course
#Afib RVR
-uncontrolled rate
-monitor on tele
-P.o. metoprolol succinate
-P.o. calcium channel da
-iv bb prn
-2d echo pending
-ongoing risk benefit discussion with cards about A/C in setting of hemophilia, defer management to cardiology
#Hemophilia B
-Follows with [facility]
-Outpatient follow up
#HLD
-Continue home statin
Code: full code
Diet: cholesterol lowering
Dvt: SCDs
Anticipated Discharge: Today
Subjective/Interval History
-
Date of Service: June 28, 2024
pt currently in a-fib
Objective Data
-
Labs:
Laboratory Results
06/28/24
09:43
WBC 10.0
Hgb 13.9
Hct 42.0
Plt Count 262 D
Sodium 143
Potassium 4.4
Chloride 104
Carbon Dioxide 25
BUN 24 H
Creatinine 1.1
Glucose 135 H
Calcium 9.2
Total Bilirubin 0.5
AST 25
ALT 27
Alkaline Phosphatase 51
Vital Signs:
Vital Signs
Temp Pulse Resp BP Pulse Ox
98.4 F 117 16 139/96 98
06/28/24 07:47 06/28/24 07:47 06/28/24 07:47 06/28/24 07:47 06/28/24 08:40
I&O
06/27/24 06/28/24 06/29/24
06:59 06:59 06:59
Intake Total 1700 / 1700
Output Total 2450 / 2450 4050 / 4050
Balance -2450 / -2450 -2350 / -2350
Review of Systems
-
History Source: Patient
Constitutional: Reports No Symptoms
Respiratory: Reports No Symptoms
Cardiac: Reports No Symptoms
Abdomen/GI: Reports No Symptoms
Genitourinary: Reports No Symptoms
Physical Exam
-
General: Well Developed, Well Nourished, No Apparent Distress, Comfortable and Conversant
Respiratory: Clear to Auscultation
Cardiac: S1/S2 and Irregular Rhythm
GI: Soft, Nontender and Nondistended
Genito-urinary: Clear Urine and Ritchie
Musculoskeletal: No Edema
Skin: Warm and Dry
Neuro: Awake, Alert, Oriented and AO x 3
Psych: Calm and Intact Judgement/Insight
Data Reviewed
-
Labs: Labs Reviewed by me and Discussed with Physician
--- NOTE | 2024-06-28 11:21 | W.PN.ONC ---
Today's Communication / Plan
-
Apparently cardiology is recommending against anticoagulation at this time. Unclear whether his 5% factor IX activity may provide some form of anticoagulation.
Impression
Impression
Hemophilia B, roughly 5% activity
Plan
Plan
D/W patient issues related to mod 'stage' hemophilia B-- if extensive surgical interventin anticiapated whould transfer to [facility] for same pending urgency need or can arrange f/u as outpt; iwth regard afib-- if A/C deemed necessary he will require
maintenance factor replacement based on levels he measured last year ( updated testing ordered) though with low CHADS-VASC score 1 may be able to avoid A/C and bleed risk moderate based on HAS-BLED scores that would be reasonable--
Subjective/Objective
Subjective/Objective
He is feeling reasonably well. He reports no new symptoms. Physical examination is unchanged.
Vital Signs:
Vital Signs
Temp Pulse Resp BP Pulse Ox
98.4 F 117 16 139/96 98
06/28/24 07:47 06/28/24 07:47 06/28/24 07:47 06/28/24 07:47 06/28/24 08:40
Lab Results:
Laboratory Data
WBC 10.0 10^3/uL (4.8-10.8) 06/28/24 09:43
Hgb 13.9 g/dL (13.0-18.0) 06/28/24 09:43
Plt Count 262 10^3/uL (130-400) D 06/28/24 09:43
PT 13.6 Sec (11.4-14.6) 06/27/24 06:34
INR 1.01 06/27/24 06:34
APTT 58.1 Sec (23.4-35.0) H 06/27/24 06:34
eGFR > 60.00 06/28/24 09:43
[2024-06-28 11:26] VITALS: BP 123/88
[2024-06-28] MEDS: CARDIZEM CD 120 MG PO (13:33)
--- NOTE | 2024-06-28 13:59 | PTCARENOTE ---
Pt being discharged. Leg bag teaching done and leg bag placed on patient.
--- NOTE | 2024-06-28 14:17 | W.DCSUMMARY ---
Discharge Summary
Discharge Data
Date of Admission: 06/26/24
Date of Discharge: 06/28/24
-
Pending Results: No
Hospital Course
Discharging Physician : Santos Alvarez
Disposition : Home
Primary care physician : Dr. Manoj Pinto
Principal Discharge diagnosis : Bilateral bladder outlet obstruction with associated bilateral hydronephrosis
Chronic Discharge diagnosis : Hemophilia B, hyperlipidemia, GERD, kidney stones, A-fib with RVR,
Hospital Course : 69-year-old male past medical history of hemophilia, hyperlipidemia, GERD, kidney stones presents for approximately 1 week of urinary hesitancy, frequency and urgency. He was seen by his PCP prior to admission and treated for a
positive UTI on UA with ciprofloxacin. Culture returned resistant to Cipro and he was switched to amoxicillin 2 days prior to admission. In the ED patient had a urinalysis indicative of urinary tract infection. CT scan in ED demonstrated
moderate, bilateral hydronephrosis and significant dilatation of urinary bladder. Findings were significant to suggest urinary bladder outlet obstruction. Urology, hematology, cardiology were consulted and patient was admitted for further
management. During his stay patient was also found to be in atrial fibrillation, which is a new diagnosis for him. Cardiology started him on metoprolol succinate 50 twice daily by mouth for rate control. This was not fully controlling his rate so
he was also started on diltiazem XR 120 mg p.o. daily. His [id number] score is 1 and he has a history of hemophilia, making anticoagulation somewhat risky. Hematology was consulted who stated they are unsure if his hemophilia will provide
adequate anticoagulation for atrial fibrillation. Cardiology was also consulted, due to his [id number] or of 1 they are currently not recommending him to be started on anticoagulation. For his bladder outlet obstruction, urology recommended
starting him on a Ritchie catheter, and to continue for 10 to 14 days post discharge. They also recommended that he start tamsulosin and continue amoxicillin for a total of 10 days. While here he received 2 days of amoxicillin, 2 days outpatient and
was written a prescription for 6 more days totaling 10 days oral amoxicillin. Patient's creatinine began downtrending to within normal limits with the Ritchie catheter, he was stable for discharge and outpatient follow-up was coordinated. Patient
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 Urology appointment was set
up by phone before patient was discharged. Patient will continue his Ritchie catheter for 10 to 14 days or until seen by urology, he will start taking tamsulosin 0.4 p.o. daily and he will complete his course of oral amoxicillin. He was also started
on metoprolol succinate and diltiazem XR for rate control of his atrial fibrillation, and he will follow-up with cardiology outpatient. Patient was discharged home with outpatient specialist follow-up.
Important imaging findings :
06/26/2024 CT abdomen pelvis without IV contrast, impression:
Moderate bilateral hydroureteronephrosis and significant distention of the urinary bladder. Findings suggest urinary bladder outlet obstruction and may be secondary to prostate gland enlargement.
Procedure findings : Ritchie catheter placement
Discharge Plan
-
Patient Disposition: Home (Routine Discharge)
Discharge Diagnosis/Procedures: Bladder outlet obstruction , New onset atrial fibrillation
Condition: Good
Diet: Low Cholesterol
Activity: As tolerated
Driving Restrictions: As prior to admission
Bathing Restrictions: None
Activity Restrictions/Additional Instructions:
[facility] - [phone] Kim's office will call to schedule catheter removal and follow up to discuss enlarged prostate
Follow up with Dr. Kim, urology. They will call to schedule appointment
Follow up with your PCP Dr Pinto within one week of discharge
Follow up with cardiology in one month of discharge for further discussion of your a-fib management
Follow up with hematology at [place] at discharge
Referrals:
Farhad Kim MD [Active] - in one to two weeks
Manoj Pinto DO [Family Provider] - in less than 1 week
Stas Wen MD [Active] - in two weeks
Additional Discharge Medication Instructions: Please continue with the Ritchie for 10-14 days
Start Tamsulosin 0.4 by mouth daily
Start metoprolol succinate 50 by mouth twice daily
Start Diltiazem 120 XR by mouth daily
Continue amoxicillin 500 every 8 hours by mouth until 07/04/24
Prescriptions:
New
diltiazem HCl 120 mg Capsule,Extended Release 24hr
120 mg PO NOW Qty: 90 1RF
tamsulosin 0.4 mg Capsule
0.4 mg PO HS Qty: 60 0RF
metoprolol succinate 50 mg Tablet Extended Release 24 Hr
50 mg PO BID Qty: 60 2RF
Continued
pravastatin 10 mg Tablet
20 mg PO Q48H
Rx Instructions:
10 mg orally
cholecalciferol (vitamin D3) [Vitamin D3] 25 mcg (1,000 unit) Tablet
25 mcg PO DAILY
acetaminophen [Tylenol] 325 mg Tablet
650 mg PO TID
bisacodyl [Dulcolax (bisacodyl)] 5 mg Tablet,Delayed Release (Dr/Ec)
10 mg PO DAILYPRN PRN (Reason: CONSTIPATION)
amoxicillin 500 mg Tablet
500 mg PO Q8H Qty: 20 0RF
Rx Instructions:
q8H PO
Discontinued
phenazopyridine 95 mg Tablet
95 mg PO DAILYPRN PRN (Reason: MILD PAIN)
Discharge Orders:
Discharge Patient (As Directed); Ordered 06/28/24
Ordered By: Crescencio Alvarez
Discharge Date and Time
Discharge Date/Time: 06/28/24 14:36
Print Language: KENYAN
--- NOTE | 2024-06-28 17:49 | W.PN.CD ---
Today's Communication / Plan
-
Add dilt CD 120 qd to metoprolol ER 50 bid
May offer LISA/DCCV with coordination with outpt char filter operator as AFib may have been precipitated by urologic illness
Attempt at more definitive treatment with ablation is not unreasonable, that should be done at [facility] with heme available if pursued.
Over 50 min spent on pt care today
We will arrange followup through our office. Second opinion EP suggested again.
Impression / Plan
-
AFib, asymptomatic, duration unknown
- Rate over 100 here
- Rhythm: so far persisting, pattern unknown
- [id number] is 1 at age 69.
- Hemophilia adds risk and complexity to management. See: https://haematologica.org/article/view/haematol.2021.917225 for a very nice discusison
- For now with his risk score I favor no anticoagulant unless we choose to pursue sinus
- AFIb likelyl radha than 2 weeks old, wears chest strap HR monitor at home exercise
- Given his lack of symptoms I favor only rate control
- Some would be more aggressive and seek ablation and/or left atrial occlusion: I suggested discussion with his char filter operator and a second opinion with another EP, perhaps downtown at [facility]
- All aspects of AFib reviewed with pt and his son. More than 75 min spent caring for pt today
- Will pursue standard rate control, echo, monitor rhythm. He will obtain a home ekg machine, Kardia
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
JUAN presumable from obstruction
UTI
Urinary retention
BPH
Mixed hyperlipidemia
Subjective:
No CP, palps, or dyspnea
Echo today is normal.
Physical Exam
Vital Signs/Labs
Vital Signs
Temp Pulse Resp BP Pulse Ox
98.3 F 110 16 123/88 99
06/28/24 11:26 06/28/24 11:26 06/28/24 11:26 06/28/24 11:26 06/28/24 11:26
06/27/24 06/28/24 06/29/24
06:59 06:59 06:59
Actual Weight 81.25 kg 80.785 kg
06/28/24 09:43
06/28/24 09:43
PT 13.6 Sec (11.4-14.6) 06/27/24 06:34
INR 1.01 06/27/24 06:34
APTT 58.1 Sec (23.4-35.0) H 06/27/24 06:34
Physical Exam
Constitutional: No acute distress
Cardiovascular: Rhythm/rate is irregular and Pedal edema present
Respiratory: Respiratory effort normal and Lungs clear to auscul.
GI: Soft and Distention absent
Neuro/Psych: AO x 3
Data Reviewed
-
Date of Service: June 28, 2024
== END 2024-06-28 14:36 | disposition home or self-care (01) | DRG 725 ==
LOC: 4 WEST ACU 20:30
PROVIDERS: Emergency Medicine; ADMITTING PHYSICIAN Internal Medicine; ATTENDING PHYSICIAN Internal Medicine; CONSULT PHYSICIAN Internal Medicine Cardiovascular Disease; CONSULT PHYSICIAN Internal Medicine Hematology & Oncology; CONSULT PHYSICIAN Urology; EMERGENCY PHYSICIAN Emergency Medicine; FAMILY PHYSICIAN Internal Medicine
DX: N40.1 Benign prostatic hyperplasia with lower urinary tract symptoms (principal); D67 Hereditary factor IX deficiency; N13.6 Pyonephrosis; Z16.23 Resistance to quinolones and fluoroquinolones; N13.8 Other obstructive and reflux uropathy; N17.9 Acute kidney failure, unspecified; E78.2 Mixed hyperlipidemia; F17.200 Nicotine dependence, unspecified, uncomplicated; I48.91 Unspecified atrial fibrillation; K21.9 Gastro-esophageal reflux disease without esophagitis; Z88.8 Allergy status to other drugs, medicaments and biological substances; R33.8 Other retention of urine; R39.11 Hesitancy of micturition; R35.1 Nocturia; B95.2 Enterococcus as the cause of diseases classified elsewhere
CPT/HCPCS: 51702; 74176; 80048; 80053; 81003; 81015; 85025; 85027; 85250; 85610; 85730; 93005; 93306; 96374; 99285

== ENCOUNTER 2024-07-21 13:44 | Inpatient (IN) | payer OTHER, SELFPAY ==
[2024-07-21] VITALS (16 sets, daily range): BP systolic 105–137; BP diastolic 48–115; BMI 22.6
--- NOTE | 2024-07-21 11:13 | ED.GENMED ---
ED Provider Triage
<Bam Wilder PA-C - Last Filed: 07/21/24 11:15>
-
Patient seen by provider in Triage?: Seen in Triage
69-year-old male with history of hemophilia B presents with fatigue and lightheadedness. He notes orthostatic symptoms. He notes he is very pale. He has had a Osman catheter recently changed and has noticed blood in his bag. Looks pale at
triage. His heart rate at home was 160. EKG performed at triage will check labs type and screen. Will request for him to be in a room
Medical screening exam performed at triage by provider. Warrants further evaluation
History of Present Illness
<Bam Wilder PA-C - Last Filed: 07/21/24 11:15>
General
Chief Complaint: Heart Rate Problem
Time Seen by Provider: 07/21/24 11:26
<Blayne Rolon, - Last Filed: 07/21/24 13:27>
General
Source: patient
Exam Limitations: none
History of Present Illness
History of Present Illness:
See MDM
Past History
<Blayne Rolon, DO - Last Filed: 07/21/24 13:27>
Past History
ED Past Medical History: Other (Hemophilia)
ED Past Surgical History: None
Social History
Tobacco: Non-smoker
Alcohol: None
Phy Exam
<Blayne Rolon DO - Last Filed: 07/21/24 13:27>
Physical Exam
Physical Exam:
See MDM
Course
<Bam Wilder PA-C - Last Filed: 07/21/24 11:15>
Orders/Labs/Results
Orders:
Orders
07/21/24 10:56
Electrocardiogram (*1) Urgent
Reason for Study: Chest Pain
EKG- Treatment ONCE
07/21/24 11:28
Type+Screen Urgent
Complete Blood Count/With Diff Urgent
Comprehensive Metabolic Panel Urgent
Ferritin Urgent
Comment: ADD ON
Iron Urgent
Comment: ADD ON
TSH Reflex To Free T4 Urgent
Total Iron Binding Urgent
Comment: ADD ON
07/21/24 11:35
Diltiazem HCl [Cardizem] 10 mg IV NOW STA
07/21/24 11:37
Consult Urology [UROLOGY CONSULT] Routine
Consulting Provider: Farhad Kim
Was physician already notified: Yes
07/21/24 11:45
Electrocardiogram (*1) Urgent
Reason for Study: Shortness of Breath
EKG- Treatment ONCE
Tranexamic Acid 1000 mg/100 ml [Tranexamic Acid] 1,000 mg in 100 ml IV ONCE
07/21/24 12:23
ABO2 Urgent
BBK Wristband Number:
Associate notified that ABO2 has been ordered: [id number]
Date: 07/21/24
Time: 11:59
Arch Cushion Skiving Machine Operator ID: [id number]
Blood Bank Products [* Blood Bank Products] Urgent
Dr's Orders: Blayne Rolon DO
Blood Bank Products: *Packed RBC Leuko(PRBC's)
Quantity: 2
Transfuse Today: Yes
Reason: Bleeding
07/21/24 13:02
Continous Bladder Irrigation As Directed
Solution: 0.9NSS
Comment: flush osman if clots stopping urine draining
Keep urine: Free of clots
Other
07/21/24 13:17
Admit/Transfer Patient As Directed
Co-Sign Provider:
Level of Care: Inpatient admission
Assign to:: Telemetry
Physician / Group: veldanda, udaybhanu
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
Reason for Telemetry: Arrhythmia
Date to Stop Telemetry: 07/24/24
Time to Stop Telemetry: 11:00
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
Expected length of stay greater than two midnights?: Yes
ELOS- Estimated Length of Stay in days: 4
I certify the patient meets the requirements for IP care: Yes
Code Status As Directed
Resuscitation Status: Full Code
07/21/24 13:20
PRN Pain Medication Management As Directed
May give lesser potent ordered pain med per pt: Yes
preference::
Protocol:: Medication orders for pain may be administered in a
manner that supports deferring to patient preference
when the pt is:
- Requesting an ordered lesser potent pain medication.
Least to most potent pain medications are defined
as: acetaminophen < NSAID < tramadol < opioids
(morphine, oxycodone, hydromorphone).
- Requesting a lesser dose of the same medication IF
ORDERED.
- Requesting a less intrusive route of administration
if both routes are prescribed by the provider (PO <
IV).
07/21/24 13:23
Add On- LAB Urgent
Tests Added?: IRON, TIBC, Ferritin
07/21/24 13:24
HEMATOLOGY CONSULT Routine
Consulting Provider: Teja Heredia
Was physician already notified: Yes
Reason for consult: hematuria hemophilia b
07/21/24 14:00
CefTRIAXone [Rocephin] 1,000 mg IV Q24H
Sterile Water [Sterile Water For Injection] 10 ml IV Q24H
07/24/24 11:00
DC Protocol for Telemetry ONCE
Abnormal Lab Results
07/21/24
11:28
RBC 2.51 L 10^6/uL
(4.70-6.10)
Hgb 7.5 L g/dL
(13.0-18.0)
Hct 22.0 L %
(39.0-52.0)
MPV 10.9 H fL
(7.4-10.4)
Abs Immat Gran (auto) 0.1 H 10^3/uL
(0-0.05)
Absolute Neuts (auto) 8.1 H 10^3/uL
(1.4-6.5)
Absolute Monos (auto) 0.7 H 10^3/uL
(0.1-0.6)
Neutrophils % 80.6 H %
(42.2-75.2)
Lymphocytes % 11.5 L %
(20.5-51.1)
Glucose 135 H mg/dl
(70-99)
Total Protein 5.9 L g/dl
(6.3-8.2)
Crossmatch IS Only See Detail
07/21/24 11:28
07/21/24 11:28
Vital Signs
Initial and Last Documented VS:
Initial Vital Signs
Temp Pulse Resp BP Pulse Ox
98.0 F 89 18 107/83 100
07/21/24 11:11 07/21/24 11:11 07/21/24 11:11 07/21/24 11:11 07/21/24 11:11
Last Documented Vital Signs
Temp Pulse Resp BP Pulse Ox
98.0 F 88 19 128/115 100
07/21/24 11:11 07/21/24 13:00 07/21/24 12:15 07/21/24 13:00 07/21/24 13:00
<Blayne Rolon, DO - Last Filed: 07/21/24 13:27>
Orders/Labs/Results
Orders:
Orders
07/21/24 10:56
Electrocardiogram (*1) Urgent
Reason for Study: Chest Pain
EKG- Treatment ONCE
07/21/24 11:28
Type+Screen Urgent
Complete Blood Count/With Diff Urgent
Comprehensive Metabolic Panel Urgent
Ferritin Urgent
Comment: ADD ON
Iron Urgent
Comment: ADD ON
TSH Reflex To Free T4 Urgent
Total Iron Binding Urgent
Comment: ADD ON
07/21/24 11:35
Diltiazem HCl [Cardizem] 10 mg IV NOW STA
07/21/24 11:37
Consult Urology [UROLOGY CONSULT] Routine
Consulting Provider: Farhad Kim
Was physician already notified: Yes
07/21/24 11:45
Electrocardiogram (*1) Urgent
Reason for Study: Shortness of Breath
EKG- Treatment ONCE
Tranexamic Acid 1000 mg/100 ml [Tranexamic Acid] 1,000 mg in 100 ml IV ONCE
07/21/24 12:23
ABO2 Urgent
BBK Wristband Number:
Associate notified that ABO2 has been ordered: [id number]
Date: 07/21/24
Time: 11:59
Arch Cushion Skiving Machine Operator ID: [id number]
Blood Bank Products [* Blood Bank Products] Urgent
's Orders: Blayne Rolon DO
Blood Bank Products: *Packed RBC Leuko(PRBC's)
Quantity: 2
Transfuse Today: Yes
Reason: Bleeding
07/21/24 13:02
Continous Bladder Irrigation As Directed
Solution: 0.9NSS
Comment: flush osman if clots stopping urine draining
Keep urine: Free of clots
Other
07/21/24 13:17
Admit/Transfer Patient As Directed
Co-Sign Provider:
Level of Care: Inpatient admission
Assign to:: Telemetry
Physician / Group: talha dennison
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
Reason for Telemetry: Arrhythmia
Date to Stop Telemetry: 07/24/24
Time to Stop Telemetry: 11:00
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
Expected length of stay greater than two midnights?: Yes
ELOS- Estimated Length of Stay in days: 4
I certify the patient meets the requirements for IP care: Yes
Code Status As Directed
Resuscitation Status: Full Code
07/21/24 13:20
PRN Pain Medication Management As Directed
May give lesser potent ordered pain med per pt: Yes
preference::
Protocol:: Medication orders for pain may be administered in a
manner that supports deferring to patient preference
when the pt is:
- Requesting an ordered lesser potent pain medication.
Least to most potent pain medications are defined
as: acetaminophen < NSAID < tramadol < opioids
(morphine, oxycodone, hydromorphone).
- Requesting a lesser dose of the same medication IF
ORDERED.
- Requesting a less intrusive route of administration
if both routes are prescribed by the provider (PO <
IV).
07/21/24 13:23
Add On- LAB Urgent
Tests Added?: IRON, TIBC, Ferritin
07/21/24 13:24
HEMATOLOGY CONSULT Routine
Consulting Provider: Teja Heredia
Was physician already notified: Yes
Reason for consult: hematuria hemophilia b
07/21/24 14:00
CefTRIAXone [Rocephin] 1,000 mg IV Q24H
Sterile Water [Sterile Water For Injection] 10 ml IV Q24H
07/24/24 11:00
DC Protocol for Telemetry ONCE
Abnormal Lab Results
07/21/24
11:28
RBC 2.51 L 10^6/uL
(4.70-6.10)
Hgb 7.5 L g/dL
(13.0-18.0)
Hct 22.0 L %
(39.0-52.0)
MPV 10.9 H fL
(7.4-10.4)
Abs Immat Gran (auto) 0.1 H 10^3/uL
(0-0.05)
Absolute Neuts (auto) 8.1 H 10^3/uL
(1.4-6.5)
Absolute Monos (auto) 0.7 H 10^3/uL
(0.1-0.6)
Neutrophils % 80.6 H %
(42.2-75.2)
Lymphocytes % 11.5 L %
(20.5-51.1)
Glucose 135 H mg/dl
(70-99)
Total Protein 5.9 L g/dl
(6.3-8.2)
Crossmatch IS Only See Detail
07/21/24 11:28
07/21/24 11:28
Vital Signs
Initial and Last Documented VS:
Initial Vital Signs
Temp Pulse Resp BP Pulse Ox
98.0 F 89 18 107/83 100
07/21/24 11:11 07/21/24 11:11 07/21/24 11:11 07/21/24 11:11 07/21/24 11:11
Last Documented Vital Signs
Temp Pulse Resp BP Pulse Ox
98.0 F 88 19 128/115 100
07/21/24 11:11 07/21/24 13:00 07/21/24 12:15 07/21/24 13:00 07/21/24 13:00
<Blayne Rolon, DO - Last Filed: 07/21/24 13:27>
MDM/Problems Addressed
Differential Diagnosis Includes:
HPI and MDM Narrative:
69-year-old male presenting for evaluation of weakness, fatigue, dizziness and persistent hematuria. Patient has a history of BPH. He follows with urology and he was self cathing. There was concern that he irritated the prostate and urology
placed a catheter. Patient has been following with urology for persistent hematuria. The thought was watch and wait to see if the hematuria resolved. Patient concerned because it has not yet resolved. He does have a history of hemophilia B
Went into the room, patient does appear pale. Patient is tachycardic and irregular and EKG consistent with A-fib. He is not anticoagulated due to his hemophilia diagnosis. Will give dose of TXA and have urology
Physical exam
General: Mildly pale and fatigued
HEENT: protecting airway
Neck: appears supple
CV: No evidence of cyanosis. Tachycardic and irregular
Resp: No accessory muscle use
Abd: Non-distended. Soft and nontender
: Osman bag with helena blood
Extremities: No deformities
Neuro: alert
Psych: Normal affect
Skin: Pale
Problems Addressed including Acute and Chronic Conditions affecting care:
1. A-fib
Acuity: acute
Prognosis: unstable
Details: Before giving the IV Cardizem, patient appeared to auto convert to sinus rhythm
2. Hematuria
Acuity: acute
Prognosis: stable
Details: Given the persistent bleeding, will give dose of TXA
Updates
Patient auto converted to sinus rhythm
11:50 AM Case discussed with urology who will evaluate. Will start CBI
12:30 PM urology at bedside and patient started on CBI
Patient found to be anemic with hemoglobin of 7.5. Given the anticipation for persistent bleeding, patient consented for 2 units packed red blood cells.
Hematology spoke to pharmacy about giving 8200 units of recombinant. However, patient does not want to take his recombinant yet and wants to see if the bleeding resolves with CBI
Differential Diagnosis (but not limited to): Hematuria, A-fib
Testing considered: CT abdomen/pelvis
Drug therapy (if applicable): OTC meds, please see d/c instruction regarding Rx drugs
Amount and/or Complexity of Data Reviewed
Clinical info obtained from: Patient
External data reviewed: N/A
Labs I independently reviewed (but not limited to): Anemia
Radiology: N/A
Pulse Ox: not hypoxic
EKG independently reviewed: A-fib with RVR, normal axis, no STEMI
Cell Tester: A-fib
Critical Care: . The high probability of a clinically significant, sudden or life threatening deterioration of the cardiovascular/ system(s) required my full and direct attention, intervention and personal management. The aggregate critical care
time was 31 minutes. This time is in addition to time spent performing reported procedures but includes the following:
[x] Data Review and interpretation
[x] Patient assessment and monitoring of vital signs
[x] Documentation
[x] Medication orders and management
Risk of Complication:
Social Determinants of health: Good social support
Discussed with other providers: Urologist, scale expert, hospitalist
Escalation of Care includes Admit/Obs: Given the active bleeding and history of hemophilia, will admit
Occasional wrong word or 'sound a like' substitutions may have occurred due to the inherent limitations of voice recognition software. Read the chart carefully and recognize, using context, where substitutions have occurred.
<Blayne Rolon DO - Last Filed: 07/21/24 13:27>
*Critical Care Note
Total Time (30-74mins, 75-104mins- exclusive of procedures): 31 min
ED Attending Note
<Bam Wilder PA-C - Last Filed: 07/21/24 11:15>
-
Portions of this chart may have been created with voice recognition software.� Occasional wrong word or��sound alike� substitutions may have occurred due to the inherent limitations of voice recognition software.
Discharge Plan
Departure
Patient Disposition: Admit
Date of Disposition: 07/21/24
Time of Disposition: 12:31
Admit to: Med/Surg
Presentation/result/management discussed w/ accepting MD/DO: Hospitalist
Discharge Problem:
Hematuria, Symptomatic anemia
Prescriptions:
No Action
pravastatin 20 mg Tablet
20 mg PO QPM
cholecalciferol (vitamin D3) [Vitamin D3] 50 mcg (2,000 unit) Tablet
50 mcg PO QPM
metoprolol succinate 50 mg tablet extended release 24 hr
50 mg PO DAILY
tamsulosin 0.4 mg capsule
0.8 mg PO HS
Referrals:
Manoj Pinto DO [Family Provider] -
Interventions
Interventions:
*Risk Screen - Suicide Last Done: 07/21/24 11:13
*General Assessment Last Done: 07/21/24 11:13
*Neglect/Abuse Screening Last Done: 07/21/24 11:13
*ED COVID-19 Vaccine History Last Done: 07/21/24 11:28
ED- Cardiac Assessment Last Done: 07/21/24 11:28
ED- Pulmonary Assessment Last Done: 07/21/24 11:28
Discharge Date and Time
Print Language: ANGOLAN
[2024-07-21 11:53] LABS: % Basophils 0.2 % (0-2); % Eosinophils 0.1 % (0-6); % Immature Granulocytes 0.5 % (0-0.5); % Lymphocytes 11.5 % (20.5-51.1); % Monocytes 7.1 % (1.7-9.3); % Neutrophils 80.6 % (42.2-75.2); Absolute Immature Granulocytes 0.1 10^3/uL (0-0.05); Absolute Lymphocytes 1.2 10^3/uL (1.2-3.4); Absolute Monocytes 0.7 10^3/uL (0.1-0.6); Absolute Neutrophils 8.1 10^3/uL (1.4-6.5); Hemoglobin 7.5 g/dL (13.0-18.0); Mean Corp Hgb Conc. 34.1 g/dL (33.0-37.0); Mean Corpuscular Hgb 29.9 pg (27.0-31.0); Mean Corpuscular Volume 87.6 fL (80.0-94.0); Mean Platelet Volume 10.9 fL (7.4-10.4); Nucleated Red Blood Cells % 0 % (-); Platelet Count 167 10^3/uL (130-400); Red Blood Cell Count 2.51 10^6/uL (4.70-6.10); Red Cell Dist. Width 13.6 % (11.5-14.5); White Blood Cell Count 10.1 10^3/uL (4.8-10.8)
[2024-07-21] MEDS: TRANEXAMIC ACID 100 IV (11:55)
[2024-07-21 12:06] LABS: ALT (SGPT) 29 U/L (0-50); AST (SGOT) 29 U/L (17-59); Albumin 3.6 g/dl (3.5-5.0); Alkaline Phosphatase 42 U/L (38-126); Blood Urea Nitrogen 18 mg/dl (9-20); Calcium 8.7 mg/dl (8.4-10.2); Carbon Dioxide 24 mmol/L (22-30); Chloride 101 mmol/L (98-107); Glucose 135 mg/dl (70-99); Potassium 4.2 mmol/L (3.5-5.1); Sodium 135 mmol/L (135-145); Total Bilirubin 0.5 mg/dl (0.2-1.3); Total Protein 5.9 g/dl (6.3-8.2); eGFR > 60.00
--- NOTE | 2024-07-21 12:08 | PHANOTE ---
med rec note- patient has three dose (3 boxes) of Benefix (factor ix) 10,600? units in room with him, he was just recently put on it last time it was given 05/05/23 with us but nothing since that time.
[2024-07-21 12:37] LABS: TSH Reflex To Free T4 2.71 uIU/ml (0.47-4.68)
--- NOTE | 2024-07-21 12:42 | HPS.HSE ---
Family Physician
-
Family Physician: Manoj Pinto
Chief Complaint
-
Hematuria x 1 week with Ritchie catheter
History of Present Illness
69-year-old male with history of hemophilia be he presents with fatigue and lightheadedness along with orthostasis symptoms. He has been dealing with urinary retention that started 1 month ago requiring a Ritchie catheter at that time during his
admission 06/26/[address] showing moderate bilateral hydronephrosis with significant dilation of the urinary bladder suggesting urinary bladder outlet obstruction. He was also treated for UTI resistant to Cipro but okay with amoxicillin
10-day course. He was diagnosed with A-fib at that time was placed on metoprolol and diltiazem XR 120 mg daily but no anticoagulation due to risk of bleeding with history of hemophilia B. The patient reports as outpatient his Cardizem was DC'd and
he is maintained solely on metoprolol. He had trials of self cathing at home with intermittent flushing of the Ritchie catheter over the past month that have not seemed to help. He reports he has been self cathing and irrigating clots for the past
week. He also states the other day he was advised to drink 16 ounces every hour that he was awake. Both myself and Dr. Kim advised the patient the dangers of consuming too much water and advised him strongly to not attempt that again in the
future. Urology Dr. Kim is at bedside stating he believes the cause of the bleeding is from the prostate being irritated. At bedside he irrigated multiple clots and emptied at 1000 mL container with water and filled with multiple clots.
Patient has a three-way Ritchie catheter now in place with CBI to continue with intermittent irrigation of clots. He will be given single dose of Rocephin and be kept n.p.o. after midnight for possible procedure.
He was tachycardic in the ER at 160 bpm with a hemoglobin of 7.5 and prior baseline 13.9 06/28/2024. He denies fever, chills, headache, chest pain, palpitations, shortness of breath, cough, abdominal pain, nausea, vomiting, diarrhea, dysuria. He
has past medical history of hemophilia B, chronic Ritchie catheter due to urinary retention with prostate bleeding, Dx A-fib06/26/2024 palpitations, spontaneous pneumothorax requiring chest tube 1975, colonoscopy
Medical History
Past Medical History
Past Medical History: Reports Other
Additional Past Medical History:
hemophilia B
chronic Ritchie catheter x 1 month secondary to urinary retention
palpitations
Past Surgical History: Reports Other
Additional Past Surgical History:
chest tube 1975
colonoscopy
Social History
Tobacco: Non-smoker
Alcohol: None
Drug: None
Personal:
Living: With Family
Employment: Retired
Family History
Family History: Not pertinent
Allergies / Home Medications
Allergies reflects when Allergies were last updated in [employer].
Home Medications with original date entered in [employer]
Allergy/Medication List:
Allergies
Allergy/AdvReac Type Severity Reaction Status Date / Time
simvastatin Allergy Unknown Verified 07/21/24 11:15
Home Medications
cholecalciferol (vitamin D3) 50 mcg (2,000 unit) tablet (Vitamin D3) 50 mcg PO QPM Supplement 07/21/24
metoprolol succinate 50 mg tablet,extended release 24 hr 50 mg PO DAILY Heart disease/condition 07/21/24
pravastatin 20 mg tablet 20 mg PO QPM High Cholesterol 07/21/24
tamsulosin 0.4 mg capsule 0.8 mg PO HS Urinary issue 07/21/24
Review of Systems
-
History Source: Patient
A 12 point ROS was completed and negative except as noted: Yes
Constitutional: Reports Fatigue; Denies Fever or Chills
EENT: Denies Sore Throat or Runny Nose
Respiratory: Denies Cough or Trouble Breathing
Cardiac: Reports Palpitations; Denies Chest Pain, Diaphoresis or Syncope
Abdomen/GI: Denies Abdominal Pain, Nausea, Vomiting, Diarrhea, Constipated, Bloody Stools or Black Stools
: Reports Ritchie (With hematuria and clots)
Musculoskeletal: Denies Joint Pain or Edema
Skin: Denies Itching or Rash
Neurological: Reports Dizzy and Weakness; Denies Headache
Endocrine: Reports No Symptoms
Hematologic/Lymphatic: Reports Bleeding (Ritchie catheter)
Psych: Reports Calm
Physical Exam
Vital Signs
Vital Signs
Temp Pulse Resp BP Pulse Ox
98.0 F 96 20 119/74 100
07/21/24 11:11 07/21/24 12:00 07/21/24 12:00 07/21/24 12:00 07/21/24 12:00
Physical Exam
General: Comfortable and Conversant; No Pain, Fever or Chills
HEENT: NormoCephalic, Anicteric, Moist mucous membranes, PERRLA, [place] Conjunctivae and No Ptosis
Respiratory: Clear; No Wheezes, Rales or Rhonchi
Cardiac: S1/S2 and Tachycardia (Sinus 160 originally now 98 bpm); No Murmur, Rub, Gallop or Peripheral Edema
Breast: Deferred by me
GI: Soft, Non Tender, Non Distended, Normal Bowel Sounds and No Hepatosplenomegaly
Rectal: Deferred by Provider
Genito-urinary: Ritchie (Three-way Ritchie catheter present had Ritchie manually irrigated by urology at bedside with multiple clots removed) and Continuous Bladder Irrigation
Musculoskeletal: No Clubbing, No Cyanosis and No Edema
Skin: Warm and Dry; No Rash or Jaundice
Neuro: AO x 3, No Motor Deficits, Nonfocal/grossly intact, Cranial Nerves Intact and No Sensory Deficits; No Slurred Speech, Facial Droop or Tremors
Psych: Calm
Laboratory Results
-
07/21/24 11:28
07/21/24 11:28
Laboratory Results
Total Bilirubin 0.5 mg/dl (0.2-1.3) 07/21/24 11:28
AST 29 U/L (17-59) 07/21/24 11:28
ALT 29 U/L (0-50) 07/21/24 11:28
Alkaline Phosphatase 42 U/L (38-126) 07/21/24 11:28
Data Reviewed
-
Lab Data: Labs Reviewed by me
Impression/Plan
-
Impression/plan:
Admit to telemetry
#Symptomatic blood loss anemia/Hematuria due to Prostate bleed from chronic Ritchie with chronic intermittent catheterizations at home likely traumatic.
#BPH
Hx hemophilia B
-Had Ritchie catheter changed
-Hgb 7.5 <13.9 on 06/28/2024
-Type and screen, obtain blood consent
-Transfuse 2 units PRBC
-Tranexamic acid 1000 mg given in ER
-Continue Flomax 0.8 mg at bedtime
-Consult urology Dr. Kim at bedside
-Will monitor patient for Bleeding from Ritchie patient wanting to not give his Factor 10 ( 100 units) now that was advised by hematology Dr. Cardenas
-Consult Hematology
-Follow H&H
#Acute tachycardia due to blood loss anemia
HR 160 bpm
Patient given Cardizem 10 mg in ER
We will transfuse 2 units PRBC due to hemoglobin of 7.5
EKG: Normal sinus rhythm 98 bpm, QTc 423 MS
#Hx A-fib Dx 06/26/2024
-Continue metoprolol succinate 50 mg p.o. daily
-No aspirin or anticoagulation likely due to history of hemophilia B
-Patient follows with [facility]ology
2D echo 06/28/2024: EF 55 to 60%, no wall abnormality, no valvular disease no pulm HTN
#HLD
Continue pravastatin 20 mg every afternoon
#GERD Hx
No PPI listed
DVT prophylaxis
SCDs
Full code
--- NOTE | 2024-07-21 13:22 | W.PN.UPDATE ---
Update Note
Progress Note Update
This is addendum to the H&P written by Kiley Dominguez on 07/21/2024. Patient seen and examined independently with STAGE SETTING PAINTER APPRENTICE.
69-year-old male past medical history of recent diagnosis of atrial fibrillation not on anticoagulation due to hemophilia, hemophilia B, hyperlipidemia, GERD, kidney stones, presenting for ongoing difficulty voiding urine with hematuria with clots
and symptomatic anemia.
He was admitted from 06/26 to 06/28 for symptoms of urinary tract infection. He had CT scan which showed moderate bilateral hydronephrosis and evidence of urinary bladder outlet obstruction. He was also found to be in new onset atrial fibrillation.
He was started on metoprolol and Cardizem. Urology recommended Ritchie catheter, tamsulosin and course of antibiotics. He eventually had Ritchie catheter removed.
Hemoglobin is 7.5. Patient was initially tachycardic, EKG showed normal sinus rhythm with PVCs and given Cardizem.
Three-way catheter was placed. CBI to be started. Urology thinks hematuria is likely due to traumatic Ritchie catheter insertions in the setting of BPH/prostatic bleeding. Hematology was notified and recommended tranexamic acid. Factor X
administration was also recommended however patient has his own and would like to hold off for now since hematuria is currently improving. Hematology in agreement.
Ceftriaxone dose to be given for urinary tract infection prophylaxis.
[2024-07-21] MEDS: ROCEPHIN 1000 MG IV (13:35)
[2024-07-21] MEDS: STERILE WATER FOR INJECTION 10 ML IV (13:35)
[2024-07-21 13:37] LABS: Iron 108 ug/dl (49-181)
[2024-07-21 13:47] LABS: Percent Saturation 40 % (20-50); Total Iron Binding Capacity 267 ug/dl (261-462)
--- NOTE | 2024-07-21 13:48 | PHANOTE ---
Spoke with patient regarding BeneFIX - patient states that Dr. Jenna Locke at the [facility] [[phone]] manages his drug therapy and prefers that any recommendations for changes are discussed with her prior to implementation.
Patient brought 3 boxes of BeneFIX to the ED with him. It is noted that all 3 boxes have an expiration date of 05/17/24. Patient aware of the expiration and stated that he brought that to the attention of the prescriber and he was told that it is ok.
--- NOTE | 2024-07-21 16:06 | PTCARENOTE ---
Blood [facility] s unit # [id number] started @ 15:40 via Lt AC site, TAR repeatedly asking for verification. Blood bank notified.
--- NOTE | 2024-07-21 16:54 | PTCARENOTE ---
received pt from ER via stretcher, accompanied by ER staff. Pt AAO x3, DU well, able to transfer to bed with assist x1, no c/o dizziness. VSS. Placed on telemetry:NSR. On room air- pulse ox 100%, no SOB noted. Abd soft, rounded, to start
regular diet. Ritchie P/I large amts clear punch-colored urine, no leakage/clots noted; CBI's infusing as ordered. [facility]'s unit # [id number] completed; Unit # W [id number] currently infusing via Lt AC site without sx of infiltration. Resting in
bed at present, no c/o. Will continue to monitor.
[2024-07-21 17:11] LABS: Glucose - Point of Care 114 mg/dl (70-99)
[2024-07-21] MEDS: PRAVACHOL 20 MG PO (17:33)
[2024-07-21] MEDS: VITAMIN D3 (cholecalciferol) 50 MCG PO (17:33)
--- NOTE | 2024-07-21 17:40 | PTCARENOTE ---
[facility]'s unit #[id number] completed with out adverse effect; VSS. Pt resting comfortably at present; states he 'feels better'. Will continue to monitor.
--- NOTE | 2024-07-21 19:03 | CONS.URO ---
Consultation
-
Performing Provider: Julio
Reason for Consultation: Hematuria
Medical History
History of Present Illness
69M with recent large volume urinary retention likely due to chronic BPH/outlet obstruction, bilateral moderate hydronephrosis, likely reflux uropathy, Enterococcus UTI
Elevated creatinine 1.7 without known baseline
Catheter placed for 1800cc urine output
81cc prostate volume
He was discharged on tamsulosin and I saw him recently in follow up
Trial of void was attempted but patient unable to void x2
He was started on CIC pending further workup as he wanted to see Dr. Blandon per recommendation from PCP
During CIC developed gross hematuria which failed to resolve
A osman was placed and he began having clot issues
Was seen in our office 07/19 after larger catheter replaced and bladder was irrigated to remove clots
Given persistent bleeding and lightheadedness, he came to ER
Noted to be anemic
2 units of blood transfused and TXA given
A large 3 way osman was placed
I irrigated a large amount of clot from the bladder and started CBI
Past Medical History
Past Medical History: Other (hemophilia B, urinary retention, palpitations, a fib)
Past Surgical History: None
Social History
Tobacco: Non-smoker
Drug: None
Family History
Family History: Reviewed & Not Pertinent
Allergies/Home Medications
Allergies
Allergy/AdvReac Type Severity Reaction Status Date / Time
simvastatin Allergy joint pain Verified 07/21/24 15:36
Home Medications
�Medication �Instructions �Recorded �Confirmed �Type
cholecalciferol (vitamin D3) 50 50 mcg PO QPM Supplement 07/21/24 07/21/24 History
mcg (2,000 unit) tablet (Vitamin
D3)
metoprolol succinate 50 mg 50 mg PO DAILY Heart 07/21/24 07/21/24 History
tablet,extended release 24 hr disease/condition
pravastatin 20 mg tablet 20 mg PO QPM High Cholesterol 07/21/24 07/21/24 History
tamsulosin 0.4 mg capsule 0.8 mg PO MUST ENTER TIMES Urinary 07/21/24 07/21/24 History
issue
Physical Exam
Vital Signs
Vital Signs
Temp Pulse Resp BP Pulse Ox
98.2 F 77 16 111/55 100
07/21/24 17:40 07/21/24 17:40 07/21/24 17:40 07/21/24 17:40 07/21/24 17:52
Lab / Testing Results
Laboratory Results
07/21/24 11:28
Physical Exam
General: Well Developed and Other (pale)
Respiratory: Clear
GI: Soft, Non Tender and Non Distended
Genito-urinary: No Costovertebral Tend, Bloody Urine and Osman Catheter
Neuro: AO x 3
Psych: Calm and Intact Judgement
Assessment / Plan
-
69M with hemophilia B, recently admitted with urinary retention with bilateral moderate hydronephrosis, JUAN, UTI, 81cc prostate
JUAN resolved after osman placement
Failed trial of void outpatient and development of significant hematuria after starting CIC
Admitted with anemia and clot obstruction of catheter
- After removing large volume of clot, residual bleeding appears to be minimal
- Trend HGB - appears stable after 2 units transfused
- Continue CBI overnight
- NPO at [facility] for possible cystoscopy and fulguration if hematuria worsens
- Hematology recs for management of hemophilia B
- Recommend discharge with osman catheter - further CIC not advisable given significant bleeding probably from catheter trauma
Data Reviewed
-
CT Scan: Image personally visualized and interpreted
Lab Data: Labs Reviewed
Old Records: Reviewed
[2024-07-21 19:39] LABS: Hematocrit 25.4 % (39.0-52.0); Hemoglobin 8.7 g/dL (13.0-18.0)
[2024-07-21] MEDS: FLOMAX 0.8 MG PO (20:49)
[2024-07-21 21:34] LABS: Glucose - Point of Care 120 mg/dl (70-99)
[2024-07-22 04:14] LABS: Hematocrit 23.6 % (39.0-52.0); Hemoglobin 8.3 g/dL (13.0-18.0)
[2024-07-22 06:13] LABS: Glucose - Point of Care 97 mg/dl (70-99)
[2024-07-22 07:21] LABS: % Basophils 0.4 % (0-2); % Eosinophils 1.4 % (0-6); % Immature Granulocytes 0.5 % (0-0.5); % Lymphocytes 22.1 % (20.5-51.1); % Monocytes 9.6 % (1.7-9.3); Absolute Eosinophils 0.1 10^3/uL (0-0.7); Absolute Lymphocytes 1.7 10^3/uL (1.2-3.4); Absolute Monocytes 0.8 10^3/uL (0.1-0.6); Absolute Neutrophils 5.2 10^3/uL (1.4-6.5); Hematocrit 24.1 % (39.0-52.0); Hemoglobin 8.2 g/dL (13.0-18.0); Mean Corpuscular Volume 88.3 fL (80.0-94.0); Mean Platelet Volume 10.9 fL (7.4-10.4); Nucleated Red Blood Cells % 0 % (-); Platelet Count 131 10^3/uL (130-400); Red Blood Cell Count 2.73 10^6/uL (4.70-6.10); Red Cell Dist. Width 14.9 % (11.5-14.5); White Blood Cell Count 7.9 10^3/uL (4.8-10.8)
--- NOTE | 2024-07-22 07:30 | W.PN.UPDATE ---
Update Note
Progress Note Update
No active hematuria overnight
Urine clear on CBI
CBI clamped this AM
Observe for recurrent bleeding
Ambulate
[2024-07-22 07:50] LABS: Blood Urea Nitrogen 16 mg/dl (9-20); Calcium 8.5 mg/dl (8.4-10.2); Carbon Dioxide 26 mmol/L (22-30); Chloride 107 mmol/L (98-107); Estimated Creatinine Clearance 74 ml/min; Glucose 92 mg/dl (70-99); Potassium 4.2 mmol/L (3.5-5.1); Sodium 140 mmol/L (135-145); eGFR > 60.00
[2024-07-22 08:29] VITALS: BP 126/66
[2024-07-22] MEDS: TOPROL XL 50 MG PO (08:50)
--- NOTE | 2024-07-22 08:56 | CON.ONC ---
Impression
Impression
hemophilia B
urinary retention/BPH/chronic outlet obstruction
acute anemia Hgb 13.9 06/27 to 7.5g/dL on admission d/t ABLA/hematuria s/p 2 unit prbc 07/21
Plan
Plan
monitor for bleeding -consider Benefix if bleeding does not resolve
Osman management per urology
OP follow up with primary floor installation mechanic at [place]
Patient History
History of Present Illness
69yo M with chronic osman for urinary retention and hemophilia B presented fatigue, lightheadedness, and orthostasis. He has been working with urology for the past month regarding urinary retention likely from chronic BPH w outlet obstruction. He
has been trialing clean intermittent catheterization which unfortunately lead to gross hematuria. He has been admitted and started on CBI. He declined use of BeneFIX (patient has his own supply) for his hemophilia bleeding in hopes that bleeding
would resolve with CBI. He had no active bleeding overnight and urine remains pink in the osman this morning.
Clinically, he denies fever, chills, headache, chest pain, palpitations, shortness of breath, cough, abdominal pain, nausea, vomiting, diarrhea, dysuria. He tells me that he takes Benefix prior to procedures for bleeding ppx, last used prior to
colonoscopy last year without complications.
Past-Medical/Surgical History
PMH hemophilia B, BPH, chronic outlet obstruction, atrial fibrillation
[facility] chest tube 1976
Social never smoker, denies ETOH, denies recreational drugs, retired, lives with
Patient Medication
�Medication �Instructions �Recorded �Confirmed �Last Taken �Type
cholecalciferol (vitamin D3) 50 50 mcg PO QPM Supplement 07/21/24 07/21/24 07/20/24 16:00 History
mcg (2,000 unit) tablet (Vitamin
D3)
metoprolol succinate 50 mg 50 mg PO DAILY Heart 07/21/24 07/21/24 07/21/24 09:00 History
tablet,extended release 24 hr disease/condition
pravastatin 20 mg tablet 20 mg PO QPM High Cholesterol 07/21/24 07/21/24 07/20/24 16:00 History
tamsulosin 0.4 mg capsule 0.8 mg PO MUST ENTER TIMES Urinary 07/21/24 07/21/24 07/20/24 16:00 History
issue
Active Medications
Generic Name Dose Route Start Last Admin
Trade Name Frenicole PRN Reason Stop Dose Admin
Ceftriaxone Sodium 1,000 mg 07/21/24 14:00 07/21/24 13:35
Ceftriaxone 1000 Mg / 10 Ml Vial IV 1,000 mg
Q24H BRITANY Administration
Cholecalciferol 50 mcg 07/21/24 18:00 07/21/24 17:33
Cholecalciferol (Vitamin D3) 50 Mcg Tablet (2,000 Units) PO 08/18/24 17:59 50 mcg
QPM BRITANY Administration
Metoprolol Succinate 50 mg 07/22/24 08:00 07/22/24 08:50
Metoprolol 50 Mg Extended Release Tablet PO 08/19/24 07:59 50 mg
DAILY BRITANY Administration
Pravastatin Sodium 20 mg 07/21/24 18:00 07/21/24 17:33
Pravastatin 20 Mg Tablet PO 08/18/24 17:59 20 mg
QPM BRITANY Administration
Sodium Chloride 0 flush 07/21/24 16:00
Sodium Chloride 0.9% (Flush) Syringe IV 08/18/24 15:59
PER PROTOCOL BRITANY
Sterile Water 10 ml 07/21/24 14:00 07/21/24 13:35
Sterile Water For Injection 10 Ml Vial IV 08/18/24 13:59 10 ml
Q24H BRITANY Administration
Tamsulosin HCl 0.8 mg 07/21/24 22:00 07/21/24 20:49
Tamsulosin 0.4 Mg Capsule PO 08/18/24 21:59 0.8 mg
HS BRITANY Administration
Review of Systems
-
ROS notable for HPI, otherwise negative
Physical Exam
-
General: No Apparent Distress
HEENT: Moist Mucous Membranes; Negative Jaundice
Cardiology: Normal Sinus Rhythm
Pulmonary: Clear
GI: Soft
Genito-Urinary: Other (pink tinged urine)
Extremities: Pulses Present; Negative Edema
Neurology: Non Focal
Skin: Warm
Psych: Calm
Labs
Lab Results
WBC 7.9 10^3/uL (4.8-10.8) 07/22/24 06:50
RBC 2.73 10^6/uL (4.70-6.10) L 07/22/24 06:50
Hgb 8.2 g/dL (13.0-18.0) L 07/22/24 06:50
Hct 24.1 % (39.0-52.0) L 07/22/24 06:50
MCV 88.3 fL (80.0-94.0) 07/22/24 06:50
MCH 30.0 pg (27.0-31.0) 07/22/24 06:50
MCHC 34.0 g/dL (33.0-37.0) 07/22/24 06:50
RDW 14.9 % (11.5-14.5) H 07/22/24 06:50
Plt Count 131 10^3/uL (130-400) D 07/22/24 06:50
MPV 10.9 fL (7.4-10.4) H 07/22/24 06:50
Abs Immat Gran (auto) 0.0 10^3/uL (0-0.05) 07/22/24 06:50
Absolute Neuts (auto) 5.2 10^3/uL (1.4-6.5) 07/22/24 06:50
Absolute Lymphs (auto) 1.7 10^3/uL (1.2-3.4) 07/22/24 06:50
Absolute Monos (auto) 0.8 10^3/uL (0.1-0.6) H 07/22/24 06:50
Absolute Eos (auto) 0.1 10^3/uL (0-0.7) 07/22/24 06:50
Absolute Basos (auto) 0.0 10^3/uL (0-0.2) 07/22/24 06:50
Immature Gran % 0.5 % (0-0.5) 07/22/24 06:50
Neutrophils % 66.0 % (42.2-75.2) 07/22/24 06:50
Lymphocytes % 22.1 % (20.5-51.1) 07/22/24 06:50
Monocytes % 9.6 % (1.7-9.3) H 07/22/24 06:50
Eosinophils % 1.4 % (0-6) 07/22/24 06:50
Basophils % 0.4 % (0-2) 07/22/24 06:50
Creatinine 1.0 mg/dL (0.7-1.3) 07/22/24 06:50
Vital Signs
Vital Signs
Temp Pulse Resp BP Pulse Ox
98.3 F 75 18 126/66 98
07/22/24 08:29 07/22/24 08:50 07/22/24 08:29 07/22/24 08:50 07/22/24 08:29
[2024-07-22 11:45] VITALS: BP 111/48
[2024-07-22 12:24] LABS: Glucose - Point of Care 89 mg/dl (70-99)
[2024-07-22 12:49] LABS: Hematocrit 26.9 % (39.0-52.0); Hemoglobin 8.8 g/dL (13.0-18.0)
--- NOTE | 2024-07-22 14:03 | W.PN.HOSP.TC ---
Today's Communication/Plan
-
await urology re-eval
serial H&H
Assessment / Plan
Assessment / Plan
pt is a 69 year old male
Symptomatic blood loss anemia due to Hematuria likely from Prostate bleed from chronic Osman with chronic intermittent catheterizations at home likely traumatic/BPH--pt hx of hemophilia B--apprec urology--osman changed and had CBI--received 2 units
pRBC--Tranexamic acid 1000 mg given in ER--Continue Flomax 0.8 mg at bedtime--apprec Hematology-Follow H&H
Acute tachycardia due to blood loss anemia--We will transfuse 2 units PRBC due to hemoglobin of 7.5
Hx new onset, paroxysmal A-fib Dx 06/26/2024--Continue metoprolol succinate 50 mg p.o. daily--No aspirin or anticoagulation likely due to history of hemophilia B
HLD--Continue pravastatin 20 mg every afternoon
GERD Hx--No PPI listed
DVT prophylaxis--SCDs
code status --Full code
Anticipated Discharge: 24 - 48 hours
Subjective/Interval History
-
Date of Service: July 22, 2024
pt had CBI for bleeding--now clamped and blood in osman bag
Objective Data
-
Labs:
Laboratory Results
07/22/24 07/22/24 07/22/24
03:47 06:50 12:31
WBC 7.9
Hgb 8.3 L 8.2 L 8.8 L
Hct 23.6 L 24.1 L 26.9 L
Plt Count 131 D
Sodium 140
Potassium 4.2
Chloride 107
Carbon Dioxide 26
BUN 16
Creatinine 1.0
Glucose 92
Calcium 8.5
Vital Signs:
max temp for 24 hours
07/21/24
23:33
Temp 98.8 F
Vital Signs
Temp Pulse Resp BP Pulse Ox
98.4 F 71 18 111/48 100
07/22/24 11:45 07/22/24 11:45 07/22/24 11:45 07/22/24 11:45 07/22/24 11:45
I&O
07/21/24 07/22/24 07/23/24
06:59 06:59 06:59
Intake Total 1750 / 1750
Output Total 900 / 900
Balance 850 / 850
Review of Systems
-
All other systems: Reviewed and negative
Physical Exam
-
General: Well Developed, Well Nourished and No Apparent Distress
HEENT: Normocephalic and Atraumatic
Respiratory: Clear to Auscultation; Negative Wheezes or Rhonchi
Cardiac: Regular Rhythm and S1/S2; Negative Murmur
GI: Soft, Nontender, Nondistended and Normal Bowel Sounds
Genito-urinary: Bloody Urine and Osman
Musculoskeletal: No Clubbing, No Cyanosis and No Edema
Neuro: Awake
Psych: Calm
--- NOTE | 2024-07-22 14:06 | CM ---
Patient seen at bedside with physician. Patient stated that he had gone over all of the questions previously with a different CM. Patient confirmed that he lives with his in a 2 story home. Patient PCP is Dr. Pinto, and he uses the [facility] in
[address] Patient plan is for discharge home with no needs and follow up with physicians. CM will continue to follow for discharge planning needs.
Plan; home with VN vs home with no needs; watch for VN needs.
[2024-07-22] MEDS: ROCEPHIN 1000 MG IV (15:00)
[2024-07-22] MEDS: STERILE WATER FOR INJECTION 10 ML IV (15:01)
[2024-07-22 16:06] VITALS: BP 124/65
--- NOTE | 2024-07-22 17:08 | W.PN.URO.CBU ---
Today's Communication / Plan
-
Trend hematuria
Likely stable for discharge tomorrow if no active bleeding
Assessment / Plan
-
69M with hemophilia B, recently admitted with urinary retention with bilateral moderate hydronephrosis, JUAN, UTI, 81cc prostate
JUAN resolved after osman placement
Failed trial of void outpatient and development of significant hematuria after starting CIC
Admitted with anemia and clot obstruction of catheter
- After removing large volume of clot, residual bleeding appears to be minimal
- No active bleeding overnight or all day with CBI clamped
- Some remaining old clots irrigated this afternoon which should further clear urine
- Trend HGB - stable
- Hematology recs for management of hemophilia B. No intervention needed at this time
- Recommend discharge with osman catheter - further CIC not advisable given significant bleeding probably from catheter trauma
- Likely stable for discharge from standpoint tomorrow if no further bleeding. Recommend trial of ambulation to ensure hemostasis remains
Diagnosis
-
Date of Service: July 22, 2024
-
Patient Diagnosis:
Gross hematuria
Urinary retention
Hemophilia B
Post Op Day:
Subjective
-
No issues with clot obstruction overnight or all day with CBI clamped
Objective
-
Vital Signs
Temp Pulse Resp BP Pulse Ox
98.3 F 73 18 124/65 98
07/22/24 16:06 07/22/24 16:06 07/22/24 16:06 07/22/24 16:06 07/22/24 16:06
Intake and Output
07/21/24 07/22/24 07/23/24
06:59 06:59 06:59
Intake Total 1750 / 1750
Output Total 900 / 900
Balance 850 / 850
Intake:
Oral fluids 800 / 800
IV fluids (Total) 200 / 200
Blood products 500 / 500
Blood Product Amount Infused ( 250 / 250
mL)
Packed Rbc Leukoreduced Unit 250 / 250
[id number]
Output:
True Urine Output from CBI 900 / 900
Laboratory Results
07/22/24 06:50
Physical Exam
-
General - well developed, well nourished, no acute distress
Chest - clear
Abdomen - soft, non-tender
Osman in place, light pink in tubing off CBI
[2024-07-22] MEDS: VITAMIN D3 (cholecalciferol) 50 MCG PO (17:19)
[2024-07-22] MEDS: PRAVACHOL 20 MG PO (17:19)
[2024-07-22 18:10] LABS: Glucose - Point of Care 89 mg/dl (70-99)
[2024-07-22 19:44] VITALS: BP 118/64
--- NOTE | 2024-07-22 20:16 | PTCARENOTE ---
Patient refused 1930 H/H blood draw
[2024-07-22] MEDS: FLOMAX 0.8 MG PO (21:18)
[2024-07-22 21:21] LABS: Glucose - Point of Care 220 mg/dl (70-99)
[2024-07-22 23:46] VITALS: BP 123/57
[2024-07-23 03:27] VITALS: BP 112/82
--- NOTE | 2024-07-23 03:30 | PTCARENOTE ---
Patient refused 0330 H/H blood draw
[2024-07-23 05:24] VITALS: BMI 22.7
[2024-07-23 07:36] VITALS: BP 128/55
[2024-07-23] MEDS: TOPROL XL 50 MG PO (08:23)
--- NOTE | 2024-07-23 08:27 | W.PN.URO.CBU ---
Today's Communication / Plan
-
Discharge with osman in place
Assessment / Plan
-
69M with hemophilia B, recently admitted with urinary retention with bilateral moderate hydronephrosis, JUAN, UTI, 81cc prostate
JUAN resolved after osman placement
Failed trial of void outpatient and development of significant hematuria after starting CIC
Admitted with anemia and clot obstruction of catheter
- Hematuria resolved with stable HGB
- Discharge with osman catheter - further CIC not advisable given significant bleeding probably from catheter trauma
- Stable for discharge from standpoint. Recommend trial of ambulation to ensure hemostasis remains prior to discharge
Diagnosis
-
Date of Service: July 23, 2024
-
Patient Diagnosis:
Gross hematuria
Urinary retention
Hemophilia B
Post Op Day:
Subjective
-
No bleeding overnight
No new problems
Objective
-
Vital Signs
Temp Pulse Resp BP Pulse Ox
98.3 F 69 18 128/55 97
07/23/24 03:27 07/23/24 08:23 07/23/24 03:27 07/23/24 08:23 07/23/24 03:27
Intake and Output
07/22/24 07/23/24 07/24/24
06:59 06:59 06:59
Intake Total 1750 / 1750 2400 / 2400
Output Total 900 / 900 4750 / 4750
Balance 850 / 850 -2350 / -2350
Intake:
Oral fluids 800 / 800 2400 / 2400
IV fluids (Total) 200 / 200
Blood products 500 / 500
Blood Product Amount Infused ( 250 / 250
mL)
Packed Rbc Leukoreduced Unit 250 / 250
[id number]
Output:
Urine, Osman 4750 / 4750
True Urine Output from CBI 900 / 900
Physical Exam
-
General - well developed, well nourished, no acute distress
Chest - unlabored
- osman in place, clear yellow urine
--- NOTE | 2024-07-23 11:11 | W.PN.HOSP.TC ---
Today's Communication/Plan
-
d/c
Assessment / Plan
Assessment / Plan
pt is a 69 year old male
Symptomatic blood loss anemia due to Hematuria likely from Prostate bleed from chronic Osman with chronic intermittent catheterizations at home likely traumatic/BPH--pt hx of hemophilia B--apprec urology--osman changed and had CBI--received 2 units
pRBC--Tranexamic acid 1000 mg given in ER--Continue Flomax 0.8 mg at bedtime
Acute tachycardia due to blood loss anemia--We will transfuse 2 units PRBC due to hemoglobin of 7.5--pt refused further blood draws
Hx new onset, paroxysmal A-fib Dx 06/26/2024--Continue metoprolol succinate 50 mg p.o. daily--No aspirin or anticoagulation likely due to history of hemophilia B
HLD--Continue pravastatin 20 mg every afternoon
GERD Hx--No PPI listed
DVT prophylaxis--SCDs
code status --Full code
Anticipated Discharge: Today
Subjective/Interval History
-
Date of Service: July 23, 2024
pt ok for d/c
Objective Data
-
Labs:
Laboratory Results
07/23/24 07/23/24 07/23/24
03:30 06:00 11:30
WBC Pending
Hgb Pending Pending Pending
Hct Pending Pending Pending
Plt Count Pending
Sodium Pending
Potassium Pending
Chloride Pending
Carbon Dioxide Pending
BUN Pending
Creatinine Pending
Glucose Pending
Calcium Pending
Vital Signs:
max temp for 24 hours
07/22/24
19:44
Temp 98.6 F
Vital Signs
Temp Pulse Resp BP Pulse Ox
97.6 F 69 20 128/55 94
07/23/24 07:36 07/23/24 08:23 07/23/24 07:36 07/23/24 08:23 07/23/24 07:36
I&O
07/22/24 07/23/24 07/24/24
06:59 06:59 06:59
Intake Total 1750 / 1750 2400 / 2400
Output Total 900 / 900 4750 / 4750
Balance 850 / 850 -2350 / -2350
Review of Systems
-
All other systems: Reviewed and negative
Physical Exam
-
General: Well Developed, Well Nourished and No Apparent Distress
HEENT: Normocephalic and Atraumatic
Respiratory: Clear to Auscultation; Negative Wheezes or Rhonchi
Cardiac: Regular Rhythm and S1/S2; Negative Murmur
GI: Soft, Nontender, Nondistended and Normal Bowel Sounds
Genito-urinary: Osman
Musculoskeletal: No Clubbing, No Cyanosis and No Edema
Neuro: Awake
Psych: Calm
--- NOTE | 2024-07-23 11:37 | CM ---
Patient seen at bedside with physician. Plan for discharge home with no needs. CM will continue to follow for discharge planning needs.
Plan; home with no needs anticipated
[2024-07-23 11:56] VITALS: BP 102/66
--- NOTE | 2024-07-23 17:00 | W.DCSUMMARY ---
Discharge Summary
Discharge Data
Date of Admission: 07/21/24
Date of Discharge: 07/23/24
-
Pending Results: No
Hospital Course
Primary care physician : Manoj Pinto
Principal Discharge diagnosis : Symptomatic blood loss anemia due to hematuria from prostate bleed
Chronic Discharge diagnosis : New onset paroxysmal atrial fibrillation, hyperlipidemia, gastroesophageal reflux disease
Hospital Course : Patient was a 69-year-old male with a history of hemophilia who presented with fatigue, lightheadedness and orthostasis symptoms. He has had urinary retention for approximately 1 month requiring a Ritchie catheter during his
admission from 06/26/2024. At that time he had a CAT scan showing moderate bilateral hydronephrosis and significant dilation of the urinary bladder suggesting bladder outlet obstruction. He was treated for urinary tract infection which was
resistant to ciprofloxacin but sensitive to amoxicillin. During that admission, he was diagnosed with atrial fibrillation new onset at the time and was placed on metoprolol and diltiazem XR. He was not placed on anticoagulation due to his risk of
bleeding with a history of hemophilia. Patient's Cardizem was since stopped and he was maintained solely on metoprolol. He had had trials of self catheterization and intermittent flushing of the catheter which did not help. He had been self
cathing and irrigating clots for the past week prior to admission. Urology has been consulted and is at the bedside on admission and was hand irrigating multiple clots from his Ritchie catheter. Patient then had a three-way Ritchie placed and had
continuous bladder irrigation. Patient was admitted.
Problem #1: Symptomatic blood loss anemia due to hematuria from prostate bleeding. Patient did have CBI running and patient's hemoglobin was noted to be 7.5 on admission. Previously his hemoglobin was running 13.9. He received 2 units of packed
red blood cells and had hemoglobin improvement to 8.8 on 07/22/2024 at noon. Patient refused any further blood draws. CBI was eventually clamped and patient's urine stayed clear. He has been cleared for discharge by urology with a Ritchie catheter
to remain in place.
Problem #2: All other medical issues. These include New onset paroxysmal atrial fibrillation, hyperlipidemia, gastroesophageal reflux disease. These medical issues were stable during his hospitalization. Medications were continued as able.
Patient is stable for discharge home at this time. If there are any questions regarding this dictation or his hospital stay, please not hesitate to call. Our office number is [phone].
Discharge Plan
-
Patient Disposition: Home (Routine Discharge)
Discharge Diagnosis/Procedures: Symptomatic blood loss anemia due to hematuria from prostate bleed, chronic Ritchie catheter on admission, new onset paroxysmal atrial fibrillation history, hyperlipidemia, gastroesophageal reflux disease
Condition: Good
Diet: As tolerated and Regular
Activity: As tolerated
Driving Restrictions: As prior to admission
Bathing Restrictions: None
Referrals:
Manoj Pinto, [Family Provider] - in less than 1 week
Prescriptions:
Continued
pravastatin 20 mg Tablet
20 mg PO QPM
cholecalciferol (vitamin D3) [Vitamin D3] 50 mcg (2,000 unit) Tablet
50 mcg PO QPM
metoprolol succinate 50 mg tablet extended release 24 hr
50 mg PO DAILY
tamsulosin 0.4 mg capsule
0.8 mg PO MUST ENTER TIMES
Rx Instructions:
daily in the afternoon
Discharge Orders:
Discharge Patient (As Directed); Ordered 07/23/24
Ordered By: Martina Ervin
Discharge Date and Time
Discharge Date/Time: 07/23/24 12:00
Print Language: [id number]
== END 2024-07-23 12:00 | disposition home or self-care (01) | DRG 811 ==
LOC: 4 EAST ACU 13:44
PROVIDERS: Clinical Nurse Specialist Family Health; Physician Assistant; ADMITTING PHYSICIAN Hospitalist; ATTENDING PHYSICIAN Internal Medicine; CONSULT PHYSICIAN Urology; EMERGENCY PHYSICIAN Student in an Organized Health Care Education/Training Program; FAMILY PHYSICIAN Internal Medicine; OTHER PHYSICIAN Internal Medicine Hematology & Oncology
PROC: 3C1ZX8Z Irrigation of Indwelling Device using Irrigating Substance, External Approach (ICD-10-PCS; 2024-07-21)
PROC: 30233N1 Transfusion of Nonautologous Red Blood Cells into Peripheral Vein, Percutaneous Approach (ICD-10-PCS; 2024-07-21)
DX: D62 Acute posthemorrhagic anemia (principal); D67 Hereditary factor IX deficiency; T83.83XA Hemorrhage due to genitourinary prosthetic devices, implants and grafts, initial encounter; N13.8 Other obstructive and reflux uropathy; E78.00 Pure hypercholesterolemia, unspecified; N40.1 Benign prostatic hyperplasia with lower urinary tract symptoms; R33.8 Other retention of urine; R31.0 Gross hematuria; I48.0 Paroxysmal atrial fibrillation; Y84.6 Urinary catheterization as the cause of abnormal reaction of the patient, or of later complication, without mention of misadventure at the time of the procedure
CPT/HCPCS: 36430; 51702; 80048; 80053; 82728; 82962; 83540; 83550; 84443; 85014; 85018; 85025; 86850; 86900; 86901; 86920; 93005; 96374; 96375; 99291; P9016

== ENCOUNTER 2024-07-27 00:30 | Inpatient (IN) | payer OTHER, SELFPAY ==
[2024-07-26 20:27] VITALS: BP 123/60
[2024-07-26 20:55] LABS: % Basophils 0.4 % (0-2); % Eosinophils 0.6 % (0-6); % Immature Granulocytes 0.6 % (0-0.5); % Lymphocytes 11.4 % (20.5-51.1); % Monocytes 7.3 % (1.7-9.3); % Neutrophils 79.7 % (42.2-75.2); Absolute Eosinophils 0.1 10^3/uL (0-0.7); Absolute Immature Granulocytes 0.1 10^3/uL (0-0.05); Absolute Lymphocytes 1.2 10^3/uL (1.2-3.4); Absolute Monocytes 0.8 10^3/uL (0.1-0.6); Absolute Neutrophils 8.6 10^3/uL (1.4-6.5); Hematocrit 21.1 % (39.0-52.0); Hemoglobin 6.7 g/dL (13.0-18.0); Mean Corp Hgb Conc. 31.8 g/dL (33.0-37.0); Mean Corpuscular Hgb 29.5 pg (27.0-31.0); Mean Platelet Volume 9.8 fL (7.4-10.4); Nucleated Red Blood Cells % 0 % (-); Platelet Count 206 10^3/uL (130-400); Red Blood Cell Count 2.27 10^6/uL (4.70-6.10); Red Cell Dist. Width 15.9 % (11.5-14.5); White Blood Cell Count 10.8 10^3/uL (4.8-10.8)
[2024-07-26 21:02] LABS: ALT (SGPT) 19 U/L (0-50); AST (SGOT) 23 U/L (17-59); Albumin 3.5 g/dl (3.5-5.0); Alkaline Phosphatase 50 U/L (38-126); Blood Urea Nitrogen 16 mg/dl (9-20); Calcium 8.6 mg/dl (8.4-10.2); Carbon Dioxide 25 mmol/L (22-30); Chloride 101 mmol/L (98-107); Glucose 147 mg/dl (70-99); Potassium 3.8 mmol/L (3.5-5.1); Sodium 133 mmol/L (135-145); Total Bilirubin 0.3 mg/dl (0.2-1.3); Total Protein 5.8 g/dl (6.3-8.2); eGFR > 60.00
--- NOTE | 2024-07-26 22:48 | ED.GENMED ---
History of Present Illness
General
Chief Complaint: Catheter/Tube Problem
Source: patient
Exam Limitations: none
Time Seen by Provider: 07/26/24 22:27
History of Present Illness
History of Present Illness:
This is a 69 year old male that comes in with c/o blocked osman catheter. States that he has an enlarge prostate. States that at first they tried having him self cath and this lasted for about 5 days and he had bleeding. States that his Hgb dropped
down to 7.5 and he was admitted her last week and given blood. States that they put in an indwelling catheter on Friday last week. Yesterday he started with some bleeding again and today he went to see Dr. Blandon. States that he was able to
irrigate the catheter at that time but was told that if it became clogged he would need to come to the ER. State that around 7-8pm tonight it became clogged and they tried to irrigate at Triage but were unable. States that he has been a little SOb
and lightheaded. Denies any fever, chills, chest pain, abd pain, nausea, vomiting, diarrhea, headache.
Past History
Past History
ED Past Medical History: Arrthythmia (Atrial fib), GERD and Other (Hemophilia, Polyps, Urinary retention, Ulcers duodenal)
ED Past Surgical History: None
Social History
Tobacco: Non-smoker
Alcohol: Occasional
Personal:
Living: with family
Review of Systems
Review of Systems
All Other Systems: ROS reviewed and negative except as documented in HPI and ROS
Constitutional: Reports no symptoms; Denies fever or chills
EENT: Reports no symptoms
Respiratory: Reports trouble breathing; Denies cough
Cardiac: Reports no symptoms; Denies chest pain
ABD/GI: Denies no symptoms, abdominal pain, nausea, vomiting or diarrhea
: Reports bleeding (Hemoturia) and other (Osman catheter blocked)
Musculoskeletal: Reports no symptoms
Skin: Reports no symptoms
Neurological: Reports other (Lightheaded); Denies dizzy or headache
Psychiatric: Reports no symptoms
Phy Exam
General Physical Exam
General Presentation: no apparent distress
General age: appears stated age
General Skin: warm, dry and pale
General Habitus: elderly
General Mental: alert
General Hydration: appears well hydrated
ENT Exam
ENT Exam: TM's normal, pharynx normal and neck supple
Eye Exam
Eye Exam: EOMI
Cardiovascular Exam
Cardiovascular Exam: regular rate/rhythm, no edema and normal peripheral pulses
Pulmonary Exam
Pulmonary Exam: lungs clear, no respiratory distress, no rales, chest non tender, no crackles, no rhonchi, no wheezing and no cough
Gastrointestinal Exam
Gastrointestinal Exam: normal bowel sounds, soft, no pulsatile mass, non distended and tender (Slight tenderness over bladder. Bladder distention. 2 finger widths below naval. )
Musculoskeletal Exam
Musculoskeletal Exam: full ROM and no edema
Skin Exam
Skin Exam: warm/dry, no rash and pallor
Psychiatric Exam
Psychiatric Exam: normal mood/affect
Course
Orders/Labs/Results
Orders:
Orders
07/26/24 20:34
Complete Blood Count/With Diff Urgent
Comprehensive Metabolic Panel Urgent
07/26/24 22:39
* Blood Bank Products Urgent
Blood Bank Products: *Packed RBC Leuko(PRBC's)
Quantity: 2
Transfuse Today: Yes
Reason: Bleeding
IV Insert/Care/Rem.- Treatment PRN
07/26/24 22:40
Osmna Placement- Treatment ONCE
Reason for insertion: Chronic Osman on Admit
07/26/24 23:05
Type And Crossmatch [Type+Screen] Urgent
07/26/24 23:26
CBI- Treatment PRN
Solution: NSS
Irrigate to Clear?: Yes
Abnormal Lab Results
07/26/24
20:34
RBC 2.27 L 10^6/uL
(4.70-6.10)
Hgb 6.7 L* D g/dL
(13.0-18.0)
Hct 21.1 L %
(39.0-52.0)
MCHC 31.8 L g/dL
(33.0-37.0)
RDW 15.9 H %
(11.5-14.5)
Abs Immat Gran (auto) 0.1 H 10^3/uL
(0-0.05)
Absolute Neuts (auto) 8.6 H 10^3/uL
(1.4-6.5)
Absolute Monos (auto) 0.8 H 10^3/uL
(0.1-0.6)
Immature Gran % 0.6 H %
(0-0.5)
Neutrophils % 79.7 H %
(42.2-75.2)
Lymphocytes % 11.4 L %
(20.5-51.1)
Sodium 133 L mmol/L
(135-145)
Glucose 147 H mg/dl
(70-99)
Total Protein 5.8 L g/dl
(6.3-8.2)
07/26/24 20:34
07/26/24 20:34
H/H very low. Sodium slightly low. hyperglycemia. Total protein slightly low.
Vital Signs
Initial and Last Documented VS:
Initial Vital Signs
Temp Pulse Resp BP Pulse Ox
98.8 F 91 18 123/60 100
07/26/24 20:27 07/26/24 20:27 07/26/24 20:27 07/26/24 20:27 07/26/24 20:27
Last Documented Vital Signs
Temp Pulse Resp BP Pulse Ox
98.8 F 91 18 123/60 100
07/26/24 20:27 07/26/24 20:27 07/26/24 20:27 07/26/24 20:27 07/26/24 20:27
MDM/Problems Addressed
Differential Diagnosis Includes:
Hematuria,
MDM/Problems Addressed:
This is a 69 year old male that comes in with c/o blocked osman catheter. State that he saw DR. Blandon today and he was able to irrigate the catheter. Told that if this became blocked he would need to come to the ER. States that around 7-8pm tonight
it became blocked.
Will get labs. Explained to patient that his Hgb is down to 6.7. He will need to have his catheter changed and be admitted for blood transfusion. Blood consent signed.
Back into see patient. Patient catheter started to drain. patient has a Three way catheter in. Will start continues bladder irrigation. Will admit. Hospitalist notified.
Chronic conditions affecting care:
hemophilia, Hematuria
Acute Exacerbation and/or Progression of Chronic Illness:
hemophilia, Hematuria
*Pulse Oximetry
Patient hypoxic: no
*EKG
Interpreted by ED Provider?: NA
*School Age Lead Teacher Interpretation
Rate: School Age Lead Teacher- N/A
*Critical Care Note
Total Time (30-74mins, 75-104mins- exclusive of procedures): Not Applicable
ED Attending Note
-
Portions of this chart may have been created with voice recognition software.� Occasional wrong word or��sound alike� substitutions may have occurred due to the inherent limitations of voice recognition software.
Discharge Plan
Departure
Patient Disposition: Admit
Date of Disposition: 07/26/24
Time of Disposition: 23:29
Admit to: Med/Surg
Presentation/result/management discussed w/ accepting MD/DO: Hospitalist
Patient with high blood pressure during this ER visit?: No
Condition: Good
Covid-19: Not Applicable
Discharge Problem:
Hematuria, Low hemoglobin
Prescriptions:
No Action
pravastatin 20 mg Tablet
20 mg PO QPM
cholecalciferol (vitamin D3) [Vitamin D3] 50 mcg (2,000 unit) Tablet
50 mcg PO QPM
metoprolol succinate 50 mg tablet extended release 24 hr
50 mg PO DAILY
tamsulosin 0.4 mg capsule
0.8 mg PO MUST ENTER TIMES
Rx Instructions:
daily in the afternoon
Referrals:
Manoj Pinto DO [Family Provider] -
Interventions
Interventions:
*Risk Screen - Suicide Last Done: 07/26/24 20:27
*General Assessment Last Done: 07/26/24 20:27
*Neglect/Abuse Screening Last Done: 07/26/24 20:27
Discharge Date and Time
Print Language: FRISIAN
[2024-07-26 23:05] VITALS: BMI 23.9
[2024-07-26 23:07] VITALS: BP 131/58
[2024-07-27] VITALS (17 sets, daily range): BP systolic 101–128; BP diastolic 53–71; BMI 23.0; BMI 23.9
--- NOTE | 2024-07-27 00:35 | EDRN ---
hospitalist at bedside working on admission on patient, call pelletier in reach no complaints at this time, osman catheter is draining without issues.
--- NOTE | 2024-07-27 00:59 | EDRN ---
Stayed with patient first 15min of blood transfusion with no reactions noted, CBI is working nicely, urine has cleared up some, started bag #2 for this, patient's report sent to floor.
[2024-07-27] MEDS: FLOMAX 0.8 MG PO ×2 (02:05→21:45)
--- NOTE | 2024-07-27 03:52 | PTCARENOTE ---
Pt received from ED via stretcher. Shifted over to bed independently. AAOx3, pleasant. 1st unit of PRBCs transfusing via #20 RW. Received w/CBI running, bag 1 completed, bag 2 irrigating. Output punch colored w/small clots. Reports no
discomfort/pressure. Full physical assessment documented (refer to worklist). Oriented to surroundings and plan of care discussed. Admission completed. Declined oral hygiene, osman care completed. Skin is c/d/i, pale. Call pelletier within reach.
--- NOTE | 2024-07-27 04:26 | HPS.HSE ---
Family Physician
-
Family Physician: Manoj Pinto
Chief Complaint
-
Recurrent gross hematuria
History of Present Illness
Patient is a 69-year-old male who has past medical history significant for hemophilia B, recent diagnosis of paroxysmal atrial fibrillation not currently anticoagulated, recent episode of bladder outlet obstruction requiring urinary cath placement,
straight catheterization trial complicated by hematuria requiring continuous bladder irrigation, symptomatic anemia due to ongoing prostate bleeding presents to the emergency department after recent discharge on he chronic indwelling cath with
development of gross hematuria.
After being discharged with a indwelling cath last week Friday he said he was feeling fine until yesterday when the bleeding started again. He reported that they might have been some traumatic manipulation of the Osman due to having many
grandchildren around. He had some minor twinges but denies any pelvic, or rectal or perineal pain. Apparently seen by Dr. Blandon in the day time and they were able to irrigate the cath at the time but was told to come to the ER if his catheter
clogged again. He reported that his catheter clogged at 7 to 8 PM. A trial of irrigation in the ED triage without success. Patient denies dizziness or lightheadedness. He has not had any fevers or chills. He denies any flank pain. He denies
any nausea or vomiting.
On arrival in the ED the patient was hemodynamically stable to blood pressure of 131/58, he was nontachycardic. His hemoglobin was 6.7 which is down from 8.8. Electrolytes BUN/creatinine were essentially at baseline.
Medical History
Past Medical History
Past Medical History: Reports Arrhythmia (paroxysmal atrial fibrillation) and Other (bph)
Additional Past Medical History:
Factor 9 deficiency 4% activity
BPH
paroxysmal atrial fibrillation
Past Surgical History: Reports Other
Social History
Tobacco: Non-smoker
Alcohol: None
Drug: None
Personal:
Living: With Family
Employment: Retired
Family History
Family History: Not pertinent
Allergies / Home Medications
Allergies reflects when Allergies were last updated in [facility].
Home Medications with original date entered in [facility]
Allergy/Medication List:
Allergies
Allergy/AdvReac Type Severity Reaction Status Date / Time
simvastatin Allergy joint pain Verified 07/21/24 15:36
Home Medications
cholecalciferol (vitamin D3) 50 mcg (2,000 unit) tablet (Vitamin D3) 50 mcg PO QPM Supplement 07/21/24
metoprolol succinate 50 mg tablet,extended release 24 hr 50 mg PO DAILY Heart disease/condition 07/21/24
pravastatin 20 mg tablet 20 mg PO QPM High Cholesterol 07/21/24
tamsulosin 0.4 mg capsule 0.8 mg PO MUST ENTER TIMES Urinary issue 07/21/24
Review of Systems
-
Constitutional: Reports No Symptoms
EENT: Reports No Symptoms
Respiratory: Reports No Symptoms
Cardiac: Reports No Symptoms
Abdomen/GI: Reports No Symptoms
: Reports Bleeding and Osman
Musculoskeletal: Reports No Symptoms
Skin: Reports No Symptoms
Neurological: Reports No Symptoms
Endocrine: Reports No Symptoms
Hematologic/Lymphatic: Reports No Symptoms
Psych: Reports No Symptoms
Physical Exam
Vital Signs
Vital Signs
Temp Pulse Resp BP Pulse Ox
98.4 F 84 16 113/54 96
07/27/24 03:22 07/27/24 03:22 07/27/24 03:22 07/27/24 03:22 07/27/24 03:19
Physical Exam
General: Well Developed, Well Nourished, No Apparent Distress and Comfortable
HEENT: NormoCephalic, Anicteric and Moist mucous membranes
Respiratory: Clear
Cardiac: S1/S2 and Regular Rhythm
Breast: Deferred by me
GI: Soft, Non Tender and Non Distended
Rectal: Deferred by Provider
Genito-urinary: Bloody Urine (had CBI going with punch colored urine)
Neuro: AO x 3
Hematologic/Lymphatic: No Lymphadenopathy
Psych: Calm
Laboratory Results
-
Laboratory Results
Total Bilirubin 0.3 mg/dl (0.2-1.3) 07/26/24 20:34
AST 23 U/L (17-59) 07/26/24 20:34
ALT 19 U/L (0-50) 07/26/24 20:34
Alkaline Phosphatase 50 U/L (38-126) 07/26/24 20:34
Data Reviewed
-
Lab Data: Labs Reviewed by me
Old Records: Reviewed
Impression/Plan
-
IMPRESSION:
Patient w/ hemophilia presenting with recurrent episode of gross hematuria with clogged osman. Possibly secondary to trauma. He had significant drop in hgb and denies any other source of blood loss.
PLAN:
1. Blood loss anemia - Hgb 6.7. No acute symptoms.
- admit to med/surg
- type and screen,
- transfuse to goal Hgb > 7. given 2 units pRBC in ED
- hematology consult given recurrent bleeding and now severe anemia, possibly ppx evaluation
2. Urinary retention - secondary to bph with current indwelling catheter
- continue CBI for now till clear colored
- continue tamsulosin 0.8mg
- urology consult in am
3. paFIB - rate controlled
- continue metoprolol succinate
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
DVT PPX SCDs
Code status - Full Code
[2024-07-27] MEDS: TOPROL XL 50 MG PO (07:38)
[2024-07-27 08:27] LABS: Hematocrit 22.7 % (39.0-52.0); Hemoglobin 7.3 g/dL (13.0-18.0); Mean Corp Hgb Conc. 32.2 g/dL (33.0-37.0); Mean Corpuscular Volume 93.4 fL (80.0-94.0); Mean Platelet Volume 10.1 fL (7.4-10.4); Platelet Count 171 10^3/uL (130-400); Red Blood Cell Count 2.43 10^6/uL (4.70-6.10); Red Cell Dist. Width 15.6 % (11.5-14.5); White Blood Cell Count 7.3 10^3/uL (4.8-10.8)
--- NOTE | 2024-07-27 08:32 | W.PN.HOSP.TC ---
Today's Communication/Plan
-
See PN
Assessment / Plan
Assessment / Plan
69yo M with PMHx of Afib, not on AC, hemophilia B manaed by in [facility], HLD, HTN came with recurrent hematuria in Moore. Had Moore placed 2/2 urinary retention due to previous UTI, then later developed hematuria when was self-catheterizing,
so as per urologist had to had Moore placed back, hematuria subsided and he was d/c 4 days before current admission. It restarted again after presumably catheter was pulled accidentlaly over the weekend. Patient was feeling dizzy on the day of
admission
A/P
#Hematuria, traumatic with acute blood loss anemia, symptomatic
#Acute urinary retention
#Hemophilia B
serial H&H
Transfuse PRBC as needed
Patient has factor IX injection, however couple of months ago - hematology consult for mgmt
CBI and urology consult
Cont Moore
Check coagulation panel
#Afib, paroxysmal
not on AC 2/2 hemophilia
#Essential HTN
#HLD
cont home meds
DVT ppx SCDs
Full code
I have spent at least 57min reviewing chart, test results, communication with consultants and direct patient care
Anticipated Discharge: > 48 hours
Subjective/Interval History
-
Date of Service: July 27, 2024
Objective Data
-
Labs:
Laboratory Results
07/26/24 07/27/24
20:34 07:14
WBC 10.8 7.3
Hgb 6.7 L* D 7.3 L
Hct 21.1 L 22.7 L
Plt Count 206 D 171
Sodium 133 L Pending
Potassium 3.8 Pending
Chloride 101 Pending
Carbon Dioxide 25 Pending
BUN 16 Pending
Creatinine 1.0 Pending
Glucose 147 H Pending
Calcium 8.6 Pending
Total Bilirubin 0.3
AST 23
ALT 19
Alkaline Phosphatase 50
Vital Signs:
Vital Signs
Temp Pulse Resp BP Pulse Ox
98.8 F 86 17 112/64 98
07/27/24 07:40 07/27/24 07:40 07/27/24 07:40 07/27/24 07:40 07/27/24 07:40
I&O
07/26/24 07/27/24 07/28/24
06:59 06:59 06:59
Intake Total 3500 / 3500
Output Total 6800 / 6800 -400 / -400
Balance -3300 / -3300 400 / 400
Review of Systems
-
History Source: Patient
All other systems: Reviewed and negative
Physical Exam
-
General: No Apparent Distress
HEENT: Normocephalic
Respiratory: Clear to Auscultation
Cardiac: Regular Rhythm
GI: Soft, Nontender and Nondistended
Genito-urinary: Bloody Urine and Other (CBI)
Musculoskeletal: No Clubbing, No Cyanosis and No Edema
Skin: Warm
Neuro: Awake, Alert, Oriented and AO x 3
Psych: Calm
--- NOTE | 2024-07-27 08:36 | W.PN.UPDATE ---
Update Note
Progress Note Update
Hgb 7.3 after 2units PRBC and with ongoing bleeding- will transfuse 1 unit PRBC and 1 unit FFP at this time pending hematology consult
--- NOTE | 2024-07-27 08:41 | CON.ONC ---
Impression
Impression
hemophilia B
urinary retention/BPH/chronic outlet obstruction
ABLA 2/2 hematuria
Plan
Plan
consider benefix if bleeding persists
urine retention, osman management per urology
serial CBC, transfuse prn
Patient History
History of Present Illness
69yo M with chronic osman for urinary retention and hemophilia B known to Dr. Kerr at [facility] presented with recurrent hematuria. He has been working with urology for the past month regarding urinary retention likely from chronic BPH w outlet
obstruction. He has been trialing clean intermittent catheterization which unfortunately lead to gross hematuria so indwelling osman was resumed. Hematuria had initially resolved but unfortunately hematuria resumed after osman was accidentally
pulled. Hgb 6.7g/dL, coags pending. He has been admitted and started on CBI and transfused with 2unit prbc.
Clinically, he denies fever, chills, headache, chest pain, palpitations, shortness of breath, cough, abdominal pain, nausea, vomiting, diarrhea, dysuria. Dizziness improved after transfusion. Hematuria has also improved to light pink urine in CBI.
He tells me that he takes Benefix prior to procedures for bleeding ppx, last used prior to colonoscopy last year without complications.
Son, Matt, at bedside during visit
Past-Medical/Surgical History
PMH hemophilia B, BPH, chronic outlet obstruction, atrial fibrillation
[facility] chest tube 1976
Social never smoker, denies ETOH, denies recreational drugs, retired, lives with
Patient Medication
�Medication �Instructions �Recorded �Confirmed �Last Taken �Type
cholecalciferol (vitamin D3) 50 50 mcg PO QPM Supplement 07/21/24 07/27/24 07/20/24 16:00 History
mcg (2,000 unit) tablet (Vitamin
D3)
metoprolol succinate 50 mg 50 mg PO DAILY Heart 07/21/24 07/27/24 07/21/24 09:00 History
tablet,extended release 24 hr disease/condition
pravastatin 20 mg tablet 20 mg PO QPM High Cholesterol 07/21/24 07/27/24 07/20/24 16:00 History
tamsulosin 0.4 mg capsule 0.8 mg PO MUST ENTER TIMES Urinary 07/21/24 07/27/24 07/20/24 16:00 History
issue
Active Medications
Generic Name Dose Route Start Last Admin
Trade Name Freq PRN Reason Stop Dose Admin
Acetaminophen 650 mg 07/27/24 01:30
Acetaminophen 325 Mg Tablet PO 08/24/24 01:29
Q4HPRN PRN
mild pain/HERNANDEZ/temp> 100.4F
Bisacodyl 10 mg 07/27/24 01:30
Bisacodyl 10 Mg Rectal Suppository RECTAL 08/24/24 01:29
[id number] PRN
constipation
Metoprolol Succinate 50 mg 07/27/24 08:00 07/27/24 07:38
Metoprolol 50 Mg Extended Release Tablet PO 08/24/24 07:59 50 mg
DAILY BRITANY Administration
Polyethylene Glycol 17 grams 07/27/24 01:30
Polyethylene Glycol Powder 17 Grams Packet PO 08/24/24 01:29
DAILYPRN PRN
constipation
Pravastatin Sodium 20 mg 07/27/24 18:00
Pravastatin 20 Mg Tablet PO 08/24/24 17:59
QPM BRITANY
Senna/Docusate Sodium 1 tablet 07/27/24 01:30
Docusate W/Senna (Dagmar-Colace) Tablet PO 08/24/24 01:29
BIDPRN PRN
constipation
Sodium Chloride 0 flush 07/27/24 02:00
Sodium Chloride 0.9% (Flush) Syringe IV 08/24/24 01:59
PER PROTOCOL BRITANY
Tamsulosin HCl 0.8 mg 07/27/24 14:00
Tamsulosin 0.4 Mg Capsule PO 08/24/24 13:59
DAILY@1400 BRITANY
Review of Systems
-
ROS notable for HPI, otherwise negative
Physical Exam
-
General: No Apparent Distress
HEENT: Moist Mucous Membranes; Negative Jaundice
Cardiology: Normal Sinus Rhythm
Pulmonary: Clear
GI: Soft
Genito-Urinary: CBI -punch colored urine
Extremities: Pulses Present; Negative Edema
Neurology: Non Focal
Skin: Warm
Psych: Calm
Labs
Lab Results
WBC 7.3 10^3/uL (4.8-10.8) 07/27/24 07:14
RBC 2.43 10^6/uL (4.70-6.10) L 07/27/24 07:14
Hgb 7.3 g/dL (13.0-18.0) L 07/27/24 07:14
Hct 22.7 % (39.0-52.0) L 07/27/24 07:14
MCV 93.4 fL (80.0-94.0) 07/27/24 07:14
MCH 30.0 pg (27.0-31.0) 07/27/24 07:14
MCHC 32.2 g/dL (33.0-37.0) L 07/27/24 07:14
RDW 15.6 % (11.5-14.5) H 07/27/24 07:14
Plt Count 171 10^3/uL (130-400) 07/27/24 07:14
MPV 10.1 fL (7.4-10.4) 07/27/24 07:14
Abs Immat Gran (auto) 0.1 10^3/uL (0-0.05) H 07/26/24 20:34
Absolute Neuts (auto) 8.6 10^3/uL (1.4-6.5) H 07/26/24 20:34
Absolute Lymphs (auto) 1.2 10^3/uL (1.2-3.4) 07/26/24 20:34
Absolute Monos (auto) 0.8 10^3/uL (0.1-0.6) H 07/26/24 20:34
Absolute Eos (auto) 0.1 10^3/uL (0-0.7) 07/26/24 20:34
Absolute Basos (auto) 0.0 10^3/uL (0-0.2) 07/26/24 20:34
Immature Gran % 0.6 % (0-0.5) H 07/26/24 20:34
Neutrophils % 79.7 % (42.2-75.2) H 07/26/24 20:34
Lymphocytes % 11.4 % (20.5-51.1) L 07/26/24 20:34
Monocytes % 7.3 % (1.7-9.3) 07/26/24 20:34
Eosinophils % 0.6 % (0-6) 07/26/24 20:34
Basophils % 0.4 % (0-2) 07/26/24 20:34
Creatinine 1.0 mg/dL (0.7-1.3) 07/26/24 20:34
Vital Signs
Vital Signs
Temp Pulse Resp BP Pulse Ox
98.8 F 86 17 112/64 98
07/27/24 07:40 07/27/24 07:40 07/27/24 07:40 07/27/24 07:40 07/27/24 07:40
[2024-07-27 08:51] LABS: Blood Urea Nitrogen 13 mg/dl (9-20); Calcium 8.2 mg/dl (8.4-10.2); Carbon Dioxide 27 mmol/L (22-30); Chloride 108 mmol/L (98-107); Estimated Creatinine Clearance 84 ml/min; Glucose 95 mg/dl (70-99); Potassium 4.6 mmol/L (3.5-5.1); Sodium 138 mmol/L (135-145); eGFR > 60.00
--- NOTE | 2024-07-27 09:03 | W.PN.URO.CBU ---
Today's Communication / Plan
-
I hand irrigated the catheter with recovery of roughly 60 ml clot with re-establishment of CBI at 0845
---
Discussed management with the patient and Hospitalist: patient states he has clotting factor with him, but it 2 months ago
Hospitalist will consult hematology and in the meantime will administer FFP
Assessment / Plan
-
Recurrent gross hematuria in the setting of hemophilia, BPH, urine retention and recent Enterococcal UTI
Diagnosis
-
Date of Service: July 27, 2024
-
Patient Diagnosis:
Clot urine retention
BPH
Urine retention
Hemophilia
---
Patient was initially admitted here 1 montha ago with urine retention in the setting of BPH and an Enterococcal UTI
He had a Ritchie placed and was discharged home
He failed 2 outpatient voiding trial and was taught CIC: unfortunately he developed gross hematuria and was hospitalized here a week ago for management of clot urine retention
His bleeding resolved with administration of FFP alone and he was again discharged home
He was seen in the office for recurrent gross hematuria yesterday afternoon and despite efforts to manage him as an outpatient he was admitted last night with recurrent clot urine retention
Subjective
-
Comfortable
No acute distress
Objective
-
Vital Signs
Temp Pulse Resp BP Pulse Ox
98.8 F 86 17 112/64 98
07/27/24 07:40 07/27/24 07:40 07/27/24 07:40 07/27/24 07:40 07/27/24 07:40
Intake and Output
07/26/24 07/27/24 07/28/24
06:59 06:59 06:59
Intake Total 3500 / 3500
Output Total 6800 / 6800 -400 / -400
Balance -3300 / -3300 400 / 400
Intake:
Amount instilled into Urinary 3000 / 3000
Drain (Total)
Blood Product Amount Infused ( 500 / 500
mL)
Packed Rbc Leukoreduced Unit 250 / 250
[id number]
Packed Rbc Leukoreduced Unit 250 / 250
[id number]
Output:
Urinary Drain Output (Total) 5000 / 5000
True Urine Output from CBI 1800 / 1800 -400 / -400
Laboratory Results
07/27/24 07:14
Review of Systems
-
Constitutional: No Symptoms
Respiratory: No Symptoms
Cardiac: No Symptoms
Abdomen/GI: No Symptoms
: Difficulty Voiding and Bleeding
Neurological: No Symptoms
Physical Exam
-
General - well developed, well nourished, no acute distress
Abdomen - soft, non-tender, no CVAT
Genitalia - normal with clotted blood at meatus and bloody urine in Ritchie tubing
Neuro - AOx3, no motor deficits
Counseling
-
Continue CBI
Repeat urine culture after CBI is discontinued to confirm resolution of Enterococcal UTI
--- NOTE | 2024-07-27 09:48 | CM ---
CM reviewed medical records. CM met with patient in room. Patient confirmed demographics. Patient does not have a history of VN or SNF. Patient presented this admission with indwelling Osman. Patient is active with his PCP. Patient has medication
coverage.
CM discussed home care options. Patient stated that he doesn't feel he needs VN for osman care. CM will remains available as needed.
PLAN: home
[2024-07-27 10:01] LABS: INR 0.94; PT 12.9 Sec (11.4-14.6)
[2024-07-27 10:02] LABS: APTT 44.5 Sec (23.4-35.0)
--- NOTE | 2024-07-27 12:00 | PTCARENOTE ---
CBI flowing but pt feeling discomfort/fullness in bladder. Ritchie manually irrigated and multiple clots removed. CBI restarted.
[2024-07-27 17:23] LABS: Hematocrit 22.8 % (39.0-52.0); Hemoglobin 7.8 g/dL (13.0-18.0)
--- NOTE | 2024-07-27 17:36 | PTCARENOTE ---
CBI output slowing and pt feeling fullness in bladder. Ritchie manually irrigated and 2 small clots removed. CBI now flowing again - punch red that is clearing to pink.
[2024-07-27] MEDS: PRAVACHOL 20 MG PO (18:20)
--- NOTE | 2024-07-27 21:11 | PTCARENOTE ---
Urology notified that CBI stopped draining and patient c/o discomfort. Orders to replace 24F [address] way. Percocet 1 tablet po Q6H PRN ordered.
[2024-07-27] MEDS: PERCOCET 5/325 1 TABLET PO (21:45)
--- NOTE | 2024-07-27 21:55 | PTCARENOTE ---
Urology notified that floor RN is unable to replace CBI. Urology on way in to replace. Patient updated on plan.
--- NOTE | 2024-07-27 22:24 | W.PN.UPDATE ---
Update Note
Progress Note Update
CTSP for clotted Ritchie/inability to replace.
24 Fr 3-way Ritchie placed. ~ 300 cc organized clot hand-irrigated. CBI initiated with light red outflow.
[2024-07-28 01:15] LABS: Hematocrit 23.7 % (39.0-52.0); Hemoglobin 7.9 g/dL (13.0-18.0)
--- NOTE | 2024-07-28 07:02 | W.PN.ONC2 ---
Today's Communication / Plan
-
Management per urology. No need for Benefix at this time as active bleeding seems to have resolved.
Impression
Impression
hemophilia B
urinary retention/BPH/chronic outlet obstruction
ABLA 2/2 hematuria
Plan
Plan
consider benefix if bleeding persists. At present no need as bleeding seems to have resolved. Unfortunately his supply is 2 months ago.
urine retention, osman management per urology
serial CBC, transfuse prn
Subjective/Objective
Chief Complaint
ACS Heme
Subjective
Currently getting CBI - CLEAR. Overnight some clots (probably old). Seems like all active bleeding has resolved.
Vital Signs:
Vital Signs
Temp Pulse Resp BP Pulse Ox
98.0 F 75 18 111/60 99
07/27/24 23:51 07/27/24 23:51 07/27/24 23:51 07/27/24 23:51 07/28/24 03:46
Lab Results:
Laboratory Data
WBC 7.3 10^3/uL (4.8-10.8) 07/27/24 07:14
Hgb Cancelled 07/28/24 13:00
Plt Count 171 10^3/uL (130-400) 07/27/24 07:14
PT 12.9 Sec (11.4-14.6) 07/27/24 09:29
INR 0.94 07/27/24 09:29
APTT 44.5 Sec (23.4-35.0) H 07/27/24 09:29
eGFR > 60.00 07/27/24 07:14
Physical Exam
GI: Other (GI - CBI clear)
[2024-07-28 08:10] VITALS: BP 123/68
--- NOTE | 2024-07-28 08:16 | W.PN.HOSP.TC ---
Today's Communication/Plan
-
CBI mgmt s per urology
Assessment / Plan
Assessment / Plan
69yo M with PMHx of Afib, not on AC, hemophilia B manaed by in [facility], HLD, HTN came with recurrent hematuria in [place]. Had Moore placed 2/2 urinary retention due to previous UTI, then later developed hematuria when was self-catheterizing,
so as per urologist had to had Moore placed back, hematuria subsided and he was d/c 4 days before current admission. It restarted again after presumably catheter was pulled accidentlaly over the weekend. Patient was feeling dizzy on the day of
admission. Bleeding resolved after multiple irrigations and FFP
A/P
#Hematuria, traumatic with acute blood loss anemia, symptomatic
#Acute urinary retention
#Hemophilia B
serial H&H
Transfuse PRBC as needed: hgb stable s/p 3 units PRBC
Patient has factor IX injection, however couple of months ago - hematology consult for mgmt
CBI and urology consult
Cont [place]
s/p FFP on 07/27/24 - bleeding resolved
#Afib, paroxysmal
not on AC 2/2 hemophilia
#Essential HTN
#HLD
cont home meds
DVT ppx SCDs
Full code
I have spent at least 37min reviewing chart, test results, communication with consultants and direct patient care
Anticipated Discharge: Within 24 hours
Subjective/Interval History
-
Date of Service: July 28, 2024
Objective Data
-
Labs:
Laboratory Results
07/27/24 07/28/24 07/28/24
21:00 01:07 05:00
Hgb Cancelled 7.9 L Cancelled
Hct Cancelled 23.7 L Cancelled
07/28/24 07/28/24
09:00 13:00
Hgb Pending Cancelled
Hct Pending Cancelled
Vital Signs:
Vital Signs
Temp Pulse Resp BP Pulse Ox
98 F 101 20 123/68 98
07/28/24 08:10 07/28/24 08:10 07/28/24 08:10 07/28/24 08:10 07/28/24 08:10
I&O
07/27/24 07/28/24 07/29/24
06:59 06:59 06:59
Intake Total 3500 / 3500 1445 / 1445
Output Total 6800 / 6800 4660 / 4660
Balance -3300 / -3300 -3215 / -3215
Review of Systems
-
History Source: Patient
All other systems: Reviewed and negative
Physical Exam
-
General: Comfortable
Genito-urinary: Clear Urine and Continuous Bladder Irrigation
Neuro: Awake, Alert, Oriented and AO x 3
Psych: Calm
[2024-07-28] MEDS: TOPROL XL 50 MG PO (08:50)
--- NOTE | 2024-07-28 09:12 | W.PN.URO.CBU ---
Today's Communication / Plan
-
Continue CBI given difficult 24 hour with rcurrent clot urine retention
Follow Hgb
Blood products as per Hematology
Assessment / Plan
-
Recurrent gross hematuria in the setting of hemophilia, BPH, urine retention and recent Enterococcal UTI: resolving
Hand irrigated at 0845 with recovery of no clot
Diagnosis
-
Date of Service: July 28, 2024
-
Patient Diagnosis:
Post Op Day:
Patient Diagnosis:
Clot urine retention
BPH
Urine retention
Hemophilia
---
Patient was initially admitted here 1 month ago with urine retention in the setting of BPH and an Enterococcal UTI
He had a Ritchie placed and was discharged home
He failed 2 outpatient voiding trial and was taught CIC: unfortunately he developed gross hematuria and was hospitalized here a week ago for management of clot urine retention
His bleeding resolved with administration of FFP alone and he was again discharged home
He was seen in the office for recurrent gross hematuria yesterday afternoon and despite efforts to manage him as an outpatient he was admitted last night with recurrent clot urine retention
Subjective
-
Presently comfortable
No SP pressure
No significant catheter bother
Objective
-
Vital Signs
Temp Pulse Resp BP Pulse Ox
98 F 101 20 123/68 98
07/28/24 08:10 07/28/24 08:10 07/28/24 08:10 07/28/24 08:10 07/28/24 08:10
Intake and Output
07/27/24 07/28/24 07/29/24
06:59 06:59 06:59
Intake Total 3500 / 3500 1445 / 1445
Output Total 6800 / 6800 4660 / 4660
Balance -3300 / -3300 -3215 / -3215
Intake:
Oral fluids 976 / 976
Amount instilled into Urinary 3000 / 3000
Drain (Total)
Blood Product Amount Infused ( 500 / 500 469 / 469
mL)
Ffp24 Divided Unit Part 1 Unit 219 / 219
[id number]
Packed Rbc Leukoreduced Unit 250 / 250
[id number]
Packed Rbc Leukoreduced Unit 250 / 250
[id number]
Packed Rbc Leukoreduced Unit 250 / 250
[id number]
Output:
Urinary Drain Output (Total) 5000 / 5000
True Urine Output from CBI 1800 / 1800 4660 / 4660
Laboratory Results
07/28/24 13:00
07/27/24 07:14
Review of Systems
-
Constitutional: No Symptoms
Respiratory: No Symptoms
Cardiac: No Symptoms
Abdomen/GI: No Symptoms
: Difficulty Voiding and Bleeding
Neurological: No Symptoms
Physical Exam
-
General - well developed, well nourished, no acute distress
Abdomen - soft, non-tender, no CVAT
Genitalia - normal with Ritchie draining clear urine on slow drip CBI
Skin - warm & dry with no rash
Neuro - AOx3, no motor deficits
Counseling
-
Continue CBI
[2024-07-28 10:01] LABS: Hematocrit 24.4 % (39.0-52.0); Hemoglobin 7.9 g/dL (13.0-18.0)
[2024-07-28 15:42] VITALS: BP 113/73
--- NOTE | 2024-07-28 16:14 | CM ---
Met with pt at bedside
Pt reports he lives with his in a 2 story home; 2 steps to enter, 14 steps to 2nd fl
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 Currently family with spouse
Independent, driving, active
DME - none
SNF - denies past hx
HH - has had in past unsure of agency
Has ride at discharge
PCP - Dr Pinto
Pharm - [facility]
Plan - anticipate home no needs
--- NOTE | 2024-07-28 17:54 | W.PN.SURGUPD ---
Surgical Update
Surgical Update
Urine clear with CBI off
Will clear patient for discharge home tomorrow if urine remains free of blood
I have contacted patient's supervisor assembly and packing, Jenna Payan. We discussed the patient receiving the clotting factor he has on hand at home via their infusion service after discharge home
[2024-07-28] MEDS: PRAVACHOL 20 MG PO (17:58)
[2024-07-28] MEDS: FLOMAX 0.8 MG PO (21:45)
[2024-07-28 22:34] VITALS: BP 107/55
--- NOTE | 2024-07-29 04:16 | DOWNTIME ---
There was a [employer] Client [employer] Downtime on 07/29/2024 from 0200 to 07/29/2024 at 0325 . Downtime documentation of patient's care, including medication administrations, has been reconciled in the electronic record per guidelines. Refer to the
patient's paper chart under the miscellaneous tab to see printed paper medication records and downtime forms.
[2024-07-29 06:28] LABS: Hematocrit 21.8 % (39.0-52.0); Hemoglobin 6.9 g/dL (13.0-18.0)
--- NOTE | 2024-07-29 06:48 | W.PN.UPDATE ---
Update Note
Progress Note Update
Critical value received on am labs. Hgb 6.9, ordered 1 unit PRBC's and repeat H&H Q6H.
[2024-07-29 07:15] VITALS: BP 118/57
[2024-07-29] MEDS: TOPROL XL 50 MG PO (07:59)
--- NOTE | 2024-07-29 09:25 | W.PN.ONC ---
Today's Communication / Plan
-
Transfuse packed red blood cells for hemoglobin 6.9 with active bleeding
Suspect a component of dilution as patient had been moderating fluids as he thought bladder irrigation was absorbed now increased p.o. intake
Hematology from [facility] okayed the use of BeneFIX despite outdated
[facility] will provide visiting nurses for administration as an outpatient
Urine retention, osman management per urology
Serial CBC, transfuse prn
Impression
Impression
hemophilia B
urinary retention/BPH/chronic outlet obstruction
ABLA 2/2 hematuria
Subjective/Objective
Subjective/Objective
Patient relatively asymptomatic without recurrent orthostasis, shortness of breath or chest pain. Bladder irrigation continues to be pink without clots.
Vital Signs:
Vital Signs
Temp Pulse Resp BP Pulse Ox
98.2 F 74 16 118/57 98
07/29/24 07:15 07/29/24 07:59 07/29/24 07:15 07/29/24 07:59 07/29/24 07:15
No scleral icterus
Regular
Clear
Lab Results:
Laboratory Data
WBC 7.3 10^3/uL (4.8-10.8) 07/27/24 07:14
Hgb 6.9 g/dL (13.0-18.0) L* 07/29/24 05:02
Plt Count 171 10^3/uL (130-400) 07/27/24 07:14
PT 12.9 Sec (11.4-14.6) 07/27/24 09:29
INR 0.94 07/27/24 09:29
APTT 44.5 Sec (23.4-35.0) H 07/27/24 09:29
eGFR > 60.00 07/27/24 07:14
[2024-07-29 10:13] LABS: Hematocrit 24.3 % (39.0-52.0); Hemoglobin 7.8 g/dL (13.0-18.0)
--- NOTE | 2024-07-29 11:04 | W.PN.URO.CBU ---
Today's Communication / Plan
-
Check urine C&S to confirm resolution of Enterococcal UTI
Assessment / Plan
-
Recurrent gross hematuria in the setting of hemophilia, BPH, urine retention and recent Enterococcal UTI: resolving
No gross hematuria x 24 hours
Diagnosis
-
Date of Service: July 29, 2024
-
Patient Diagnosis:
Clot urine retention: resolved
BPH
Urine retention
Hemophilia
---
Patient was initially admitted here 1 month ago with urine retention in the setting of BPH and an Enterococcal UTI
He had a Ritchie placed and was discharged home
He failed 2 outpatient voiding trial and was taught CIC: unfortunately he developed gross hematuria and was hospitalized here a week ago for management of clot urine retention
His bleeding resolved with administration of FFP alone and he was again discharged home
He was seen in the office for recurrent gross hematuria and despite efforts to manage him as an outpatient he was admitted last night with recurrent clot urine retention
Subjective
-
Comfortable
No acute distress
Objective
-
Vital Signs
Temp Pulse Resp BP Pulse Ox
98.2 F 74 16 118/57 98
07/29/24 07:15 07/29/24 07:59 07/29/24 07:15 07/29/24 07:59 07/29/24 07:15
Intake and Output
07/28/24 07/29/24 07/30/24
06:59 06:59 06:59
Intake Total 1445 / 1445 640 / 640
Output Total 4660 / 4660 1600 / 1600
Balance -3215 / -3215 -960 / -960
Intake:
Oral fluids 976 / 976 640 / 640
Blood Product Amount Infused ( 469 / 469
mL)
Ffp24 Divided Unit Part 1 Unit 219 / 219
[id number]
Packed Rbc Leukoreduced Unit 250 / 250
[id number]
Output:
Urine, Ritchie 1600 / 1600
True Urine Output from CBI 4660 / 4660
Laboratory Results
07/29/24 10:00
07/27/24 07:14
Review of Systems
-
Constitutional: Fatigue
Respiratory: No Symptoms
Cardiac: No Symptoms
Abdomen/GI: No Symptoms
: Difficulty Voiding
Neurological: No Symptoms
Physical Exam
-
General - well developed, well nourished, no acute distress
Abdomen - soft, non-tender, no SP pain, no CVAT
Genitalia - normal with Ritchie draining clear urine
Skin - warm & dry with no rash
Neuro - AOx3, no motor deficits
Counseling
-
Cleared for discharge home with Ritchie from standpoint
Discussed with Hospitalist
--- NOTE | 2024-07-29 11:05 | W.PN.HOSP.TC ---
Today's Communication/Plan
-
dc
Assessment / Plan
Assessment / Plan
69yo M with PMHx of Afib, not on AC, hemophilia B manaed by in [facility], HLD, HTN came with recurrent hematuria in [place]. Had Moore placed 2/2 urinary retention due to previous UTI, then later developed hematuria when was self-catheterizing,
so as per urologist had to had Moore placed back, hematuria subsided and he was d/c 4 days before current admission. It restarted again after presumably catheter was pulled accidentlaly over the weekend. Patient was feeling dizzy on the day of
admission. Bleeding resolved after multiple irrigations and FFP, Hgb remained stable with exclusion of single false reading of 6.9 that was not confirmed on repeated sample. Patient advised to repeat H&H and anemia w/u with PCP as outpatient and to
be in touch with his Ophthalmic Photographer so to arrange factor IX concentrate infusion with not- preparation upon d/c. He verbalized understanding of the instructions and medically stable for d/c. Urine creared on the day of discharge. Urology will
follow as outpatient for repeated Ucx to confirm previous infection irradication.
A/P
#Hematuria, traumatic with acute blood loss anemia, symptomatic
#Acute urinary retention
#Hemophilia B
serial H&H
Transfuse PRBC as needed: hgb stable s/p 3 units PRBC
Patient has factor IX injection, however couple of months ago - hematology consult for mgmt
CBI and urology consult
Cont [place]
s/p FFP on 07/27/24 - bleeding resolved
#Afib, paroxysmal
not on AC 2/2 hemophilia
#Essential HTN
#HLD
cont home meds
DVT ppx SCDs
Full code
I have spent at least 37min reviewing chart, test results, communication with consultants and direct patient care
Anticipated Discharge: Today
Subjective/Interval History
-
Date of Service: July 29, 2024
Objective Data
-
Labs:
Laboratory Results
07/29/24 07/29/24
05:02 10:00
Hgb 6.9 L* 7.8 L
Hct 21.8 L 24.3 L
Vital Signs:
Vital Signs
Temp Pulse Resp BP Pulse Ox
98.2 F 74 16 118/57 98
07/29/24 07:15 07/29/24 07:59 07/29/24 07:15 07/29/24 07:59 07/29/24 07:15
I&O
07/28/24 07/29/24 07/30/24
06:59 06:59 06:59
Intake Total 1445 / 1445 640 / 640
Output Total 4660 / 4660 1600 / 1600
Balance -3215 / -3215 -960 / -960
Review of Systems
-
History Source: Patient
All other systems: Reviewed and negative
Physical Exam
-
General: Well Developed, Well Nourished and No Apparent Distress
HEENT: Normocephalic
Respiratory: Clear to Auscultation
Cardiac: Regular Rhythm
GI: Soft, Nontender and Nondistended
Genito-urinary: No Costovertebral Tender
Neuro: Awake, Alert, Oriented and AO x 3
Psych: Calm
[2024-07-29 11:17] VITALS: BP 116/63
--- NOTE | 2024-07-29 11:21 | W.DCSUMMARY ---
Discharge Summary
Discharge Data
Date of Admission: 07/27/24
Date of Discharge: 07/29/24
-
Pending Results: Yes
Additional Pending Results:
Urine Culture
Hospital Course
69yo M with PMHx of Afib, not on AC, hemophilia B manaed by in [facility], HLD, HTN came with recurrent hematuria in [place]. Had Moore placed 2/2 urinary retention due to previous UTI, then later developed hematuria when was self-catheterizing,
so as per urologist had to had Moore placed back, hematuria subsided and he was d/c 4 days before current admission. It restarted again after presumably catheter was pulled accidentlaly over the weekend. Patient was feeling dizzy on the day of
admission. Bleeding resolved after multiple irrigations and FFP, Hgb remained stable with exclusion of single false reading of 6.9 that was not confirmed on repeated sample. Patient advised to repeat H&H and anemia w/u with PCP as outpatient and to
be in touch with his Security Patrol Officer so to arrange factor IX concentrate infusion with not- preparation upon d/c. He verbalized understanding of the instructions and medically stable for d/c. Urine creared on the day of discharge. Urology will
follow as outpatient for repeated Ucx to confirm previous infection irradication.
I have spent at least 37min reviewing chart, test results, communication with consultants and direct patient care
Patient was managed for:
#Hematuria, traumatic with acute blood loss anemia, symptomatic
#Acute urinary retention
#Hemophilia B
#Afib, paroxysmal
#Essential HTN
#HLD
Discharge Plan
-
Patient Disposition: Home (Routine Discharge)
Discharge Diagnosis/Procedures: Hematuria
Diet: Regular
Activity: As tolerated
Driving Restrictions: As prior to admission
Referrals:
Manoj Pinto DO [Family Provider] -
Gilberto Blandon MD [Active] - in less than 1 week (for results of repeated Ucx)
Prescriptions:
Continued
pravastatin 20 mg Tablet
20 mg PO QPM
cholecalciferol (vitamin D3) [Vitamin D3] 50 mcg (2,000 unit) Tablet
50 mcg PO QPM
metoprolol succinate 50 mg tablet extended release 24 hr
50 mg PO DAILY
tamsulosin 0.4 mg capsule
0.8 mg PO MUST ENTER TIMES
Rx Instructions:
daily in the afternoon
Discharge Orders:
Discharge Patient (As Directed); Ordered 07/29/24
Ordered By: Bonifacio Thornton
Discharge Date and Time
Print Language: IRISH
--- NOTE | 2024-07-29 12:20 | CM ---
Pt for discharge today
Has ride home
Plan - home with no needs
== END 2024-07-29 13:43 | disposition home or self-care (01) | DRG 811 ==
LOC: 2 SOUTH 00:30
PROVIDERS: Emergency Medicine; ADMITTING PHYSICIAN Internal Medicine; ATTENDING PHYSICIAN Internal Medicine; EMERGENCY PHYSICIAN Emergency Medicine; FAMILY PHYSICIAN Internal Medicine; OTHER PHYSICIAN Internal Medicine Hematology & Oncology; OTHER PHYSICIAN Specialist
PROC: 30233L1 Transfusion of Nonautologous Fresh Plasma into Peripheral Vein, Percutaneous Approach (ICD-10-PCS; 2024-07-27)
PROC: 30233N1 Transfusion of Nonautologous Red Blood Cells into Peripheral Vein, Percutaneous Approach (ICD-10-PCS; 2024-07-27)
DX: D62 Acute posthemorrhagic anemia (principal); D67 Hereditary factor IX deficiency; T83.83XA Hemorrhage due to genitourinary prosthetic devices, implants and grafts, initial encounter; E78.00 Pure hypercholesterolemia, unspecified; I10 Essential (primary) hypertension; I48.0 Paroxysmal atrial fibrillation; K21.9 Gastro-esophageal reflux disease without esophagitis; N40.1 Benign prostatic hyperplasia with lower urinary tract symptoms; R33.8 Other retention of urine; K59.00 Constipation, unspecified; Y84.6 Urinary catheterization as the cause of abnormal reaction of the patient, or of later complication, without mention of misadventure at the time of the procedure; Z87.440 Personal history of urinary (tract) infections
CPT/HCPCS: 51700; 80048; 80053; 85014; 85018; 85025; 85027; 85610; 85730; 86850; 86900; 86901; 86920; 87086; 99285; P9016; P9059

== ENCOUNTER 2024-07-31 16:50 | Inpatient (IN) | payer OTHER, SELFPAY ==
[2024-07-31] VITALS (14 sets, daily range): BP systolic 95–136; BP diastolic 54–71; BMI 24.1
[2024-07-31 12:57] LABS: % Basophils 0.3 % (0-2); % Eosinophils 0.1 % (0-6); % Immature Granulocytes 0.4 % (0-0.5); % Lymphocytes 10.9 % (20.5-51.1); % Monocytes 5.2 % (1.7-9.3); % Neutrophils 83.1 % (42.2-75.2); Absolute Lymphocytes 1.1 10^3/uL (1.2-3.4); Absolute Monocytes 0.5 10^3/uL (0.1-0.6); Hematocrit 22.7 % (39.0-52.0); Hemoglobin 7.3 g/dL (13.0-18.0); Mean Corp Hgb Conc. 32.2 g/dL (33.0-37.0); Mean Corpuscular Hgb 30.5 pg (27.0-31.0); Mean Platelet Volume 9.4 fL (7.4-10.4); Nucleated Red Blood Cells % 0 % (-); Platelet Count 237 10^3/uL (130-400); Red Blood Cell Count 2.39 10^6/uL (4.70-6.10); Red Cell Dist. Width 17.7 % (11.5-14.5); White Blood Cell Count 9.6 10^3/uL (4.8-10.8)
[2024-07-31 13:08] LABS: ALT (SGPT) 23 U/L (0-50); AST (SGOT) 26 U/L (17-59); Albumin 3.5 g/dl (3.5-5.0); Alkaline Phosphatase 46 U/L (38-126); Blood Urea Nitrogen 16 mg/dl (9-20); Calcium 8.5 mg/dl (8.4-10.2); Carbon Dioxide 24 mmol/L (22-30); Chloride 104 mmol/L (98-107); Glucose 140 mg/dl (70-99); Potassium 4.2 mmol/L (3.5-5.1); Sodium 137 mmol/L (135-145); Total Bilirubin 0.3 mg/dl (0.2-1.3); Total Protein 5.7 g/dl (6.3-8.2); eGFR > 60.00
--- NOTE | 2024-07-31 15:55 | ED.GENMED ---
History of Present Illness
General
Chief Complaint: Male Genito-Urinary Symptoms
Time Seen by Provider: 07/31/24 14:02
History of Present Illness
History of Present Illness:
69-year-old male with history of hemophilia be presents to the emergency department for evaluation of recurrent hematuria. Patient has been admitted to this hospital multiple times this month, most recently discharged 2 days ago. Of note there was
discussion about administering his recombinant factor IX however his supply from home is in the hospital does not stock enough to administer to this patient. He reports increased hematuria last night and clot retention of urine this morning.
Past History
Past History
ED Past Medical History: Arrthythmia (Atrial fib), GERD and Other (Hemophilia, Polyps, Urinary retention, Ulcers duodenal)
ED Past Surgical History: None
Social History
Tobacco: Non-smoker
Alcohol: Occasional
Personal:
Living: with family
Review of Systems
Review of Systems
Allergies reviewed?: Yes
All Other Systems: ROS reviewed and negative except as documented in HPI and ROS
Phy Exam
Physical Exam
Physical Exam:
GEN: Well appearing, NAD, WDWN
HEENT: Oral mucosa moist, no scleral icterus
Cardiac: Regular rate
Lung: No respiratory distress, no tachypnea
: Dark red urine in Ritchie bag, minimal drainage
MSK: No gross deformity or injuries
Skin: Good color, no pallor or jaundice, no rashes
Neuro: AO x3, moves all extremities freely
Psych: Calm, cooperative
Course
Orders/Labs/Results
Orders:
Orders
07/31/24 12:37
Type+Screen Urgent
Complete Blood Count/With Diff Urgent
Comprehensive Metabolic Panel Urgent
07/31/24 14:25
CBI- Treatment PRN
Solution: nss
07/31/24 14:56
Blood Bank Products [* Blood Bank Products] Urgent
Blood Bank Products: *Packed RBC Leuko(PRBC's)
Quantity: 1
Transfuse Today: Yes
Reason: Bleeding
07/31/24 15:39
Blood Bank Products [* Blood Bank Products] Urgent
Blood Bank Products: *Fresh Frozen Plasma
Quantity: 1
Transfuse Today: Yes
Reason: Coagulopathy
07/31/24 15:56
Admit/Transfer Patient As Directed
Co-Sign Provider:
Level of Care: Inpatient admission
Assign to:: Telemetry
Physician / Group: jesi
Diagnosis: hematuria
Reason for Telemetry: Arrhythmia
Date to Stop Telemetry: 08/03/24
Time to Stop Telemetry: 11:00
Reason for Hospitalization: hematuria
Expected length of stay greater than two midnights?: Yes
ELOS- Estimated Length of Stay in days: 2
I certify the patient meets the requirements for IP care: Yes
PRN Pain Medication Management As Directed
May give lesser potent ordered pain med per pt: Yes
preference::
Protocol:: Medication orders for pain may be administered in a
manner that supports deferring to patient preference
when the pt is:
- Requesting an ordered lesser potent pain medication.
Least to most potent pain medications are defined
as: acetaminophen < NSAID < tramadol < opioids
(morphine, oxycodone, hydromorphone).
- Requesting a lesser dose of the same medication IF
ORDERED.
- Requesting a less intrusive route of administration
if both routes are prescribed by the provider (PO <
IV).
07/31/24 15:57
Code Status As Directed
Resuscitation Status: Full Code
07/31/24 16:00
PRN Pain Medication Management As Directed
May give lesser potent ordered pain med per pt: Yes
preference::
Protocol:: Medication orders for pain may be administered in a
manner that supports deferring to patient preference
when the pt is:
- Requesting an ordered lesser potent pain medication.
Least to most potent pain medications are defined
as: acetaminophen < NSAID < tramadol < opioids
(morphine, oxycodone, hydromorphone).
- Requesting a lesser dose of the same medication IF
ORDERED.
- Requesting a less intrusive route of administration
if both routes are prescribed by the provider (PO <
IV).
08/03/24 11:00
DC Protocol for Telemetry ONCE
Abnormal Lab Results
07/31/24
12:37
RBC 2.39 L 10^6/uL
(4.70-6.10)
Hgb 7.3 L g/dL
(13.0-18.0)
Hct 22.7 L %
(39.0-52.0)
MCV 95.0 H fL
(80.0-94.0)
MCHC 32.2 L g/dL
(33.0-37.0)
RDW 17.7 H %
(11.5-14.5)
Absolute Neuts (auto) 8.0 H 10^3/uL
(1.4-6.5)
Absolute Lymphs (auto) 1.1 L 10^3/uL
(1.2-3.4)
Neutrophils % 83.1 H %
(42.2-75.2)
Lymphocytes % 10.9 L %
(20.5-51.1)
Glucose 140 H mg/dl
(70-99)
Total Protein 5.7 L g/dl
(6.3-8.2)
Crossmatch IS Only See Detail
07/31/24 12:37
07/31/24 12:37
Vital Signs
Initial and Last Documented VS:
Initial Vital Signs
Temp Pulse Resp BP Pulse Ox
98.2 F 96 18 125/65 98
07/31/24 12:25 07/31/24 12:25 07/31/24 12:25 07/31/24 12:25 07/31/24 12:25
Last Documented Vital Signs
Temp Pulse Resp BP Pulse Ox
98.9 F 83 16 131/69 99
07/31/24 16:03 07/31/24 16:03 07/31/24 16:03 07/31/24 16:03 07/31/24 16:30
MDM/Problems Addressed
MDM/Problems Addressed:
Lengthy discussion with the patient as well as pharmacy, at this time the pharmacy will not authorize us to administer his medications and this also sounds like it was an issue for outpatient visiting nurses to administer the medication.
Unfortunately we will not have availability to order this medication for at least several days. At this time as he is hemodynamically stable certainly does require blood transfusion, will give unit of FFP. Urology is consulted and will plan to
take the patient to the OR for fulguration tomorrow. Admitted to the hospitalist service
*Critical Care Note
Total Time (30-74mins, 75-104mins- exclusive of procedures): Not Applicable
ED Attending Note
-
Portions of this chart may have been created with voice recognition software.� Occasional wrong word or��sound alike� substitutions may have occurred due to the inherent limitations of voice recognition software.
Discharge Plan
Departure
Patient Disposition: Admit
Date of Disposition: 07/31/24
Time of Disposition: 15:55
Admit to: Med/Surg
Presentation/result/management discussed w/ accepting MD/DO: Hospitalist
Discharge Problem:
Hematuria, Clot retention of urine
Interventions
Interventions:
*Risk Screen - Suicide Last Done: 07/31/24 12:25
*General Assessment Last Done: 07/31/24 12:25
*Neglect/Abuse Screening Last Done: 07/31/24 13:54
ED- Fall Risk Assessment Last Done: 07/31/24 16:00
*ED COVID-19 Vaccine History Last Done: 07/31/24 13:54
ED-Male Genitourinary Assessment Last Done: 07/31/24 13:54
--- NOTE | 2024-07-31 15:58 | HPS.HSE ---
Addendum entered and electronically signed by Sarah Tellez MD 07/31/24 16:15:
Patient's factor IX on May 17, 2024. As per recent oncology notes Case was discussed with [facility] and it was okay for patient to receive his own factor IX despite outdated. Consulted hematology. Will assess patient's
response to CBI and unit of FFP before committing to factor IX administration. Correct dosage also needs to be determined with pharmacy.
Original Note:
Family Physician
-
Family Physician: Manoj Pinto
Chief Complaint
-
hematuria
History of Present Illness
69-year-old male past medical history of recent diagnosis of atrial fibrillation not on anticoagulation due to hemophilia, hemophilia B, hyperlipidemia, GERD, kidney stones, presenting for hematuria.
Patient was originally admitted from 06/26 to 06/28 for enterococcal UTI/BPH. He had CT scan which showed moderate bilateral hydronephrosis and evidence of urinary bladder outlet obstruction. He was also found to be in new onset atrial
fibrillation. He was started on metoprolol and Cardizem. Urology recommended Ritchie catheter, tamsulosin and course of antibiotics. He eventually had Ritchie catheter removed.
He was again admitted from 07/27 to 07/29 for recurrent hematuria through Ritchie catheter. Patient received multiple irrigations and FFP. He started developing hematuria this morning. He did feel short of breath with exertion. Denies dizziness or
passing out. Denies chest pain.
Denies smoking or alcohol use.
Medical History
Past Medical History
Past Medical History: Reports Other (recent diagnosis of atrial fibrillation not on anticoagulation due to hemophilia, hemophilia B, hyperlipidemia, GERD, kidney stones)
Past Surgical History: Reports Other (hest tube 1976 colonoscopy)
Social History
Tobacco: Non-smoker
Alcohol: None
Drug: None
Family History
Family History: Not pertinent
Allergies / Home Medications
Allergies reflects when Allergies were last updated in [employer].
Home Medications with original date entered in [employer]
Allergy/Medication List:
Allergies
Allergy/AdvReac Type Severity Reaction Status Date / Time
simvastatin Allergy joint pain Verified 07/21/24 15:36
Home Medications
cholecalciferol (vitamin D3) 50 mcg (2,000 unit) tablet (Vitamin D3) 50 mcg PO QPM Supplement 07/21/24
metoprolol succinate 50 mg tablet,extended release 24 hr 50 mg PO DAILY Heart disease/condition 07/21/24
pravastatin 20 mg tablet 20 mg PO QPM High Cholesterol 07/21/24
tamsulosin 0.4 mg capsule 0.8 mg PO MUST ENTER TIMES Urinary issue 07/21/24
Review of Systems
-
History Source: Patient
A 12 point ROS was completed and negative except as noted: Yes
Constitutional: Reports No Symptoms
EENT: Reports No Symptoms
Respiratory: Reports No Symptoms
Cardiac: Reports No Symptoms
Abdomen/GI: Reports No Symptoms
: Reports See HPI
Musculoskeletal: Reports No Symptoms
Skin: Reports No Symptoms
Neurological: Reports No Symptoms
Endocrine: Reports No Symptoms
Hematologic/Lymphatic: Reports No Symptoms
Psych: Reports No Symptoms
Physical Exam
Vital Signs
Vital Signs
Temp Pulse Resp BP Pulse Ox
98.8 F 79 16 136/66 100
07/31/24 15:44 07/31/24 15:44 07/31/24 15:44 07/31/24 15:44 07/31/24 15:44
Physical Exam
General: Well Developed, Well Nourished and No Apparent Distress
HEENT: NormoCephalic, Moist mucous membranes and Atraumatic
Respiratory: Clear
Cardiac: S1/S2 and Regular Rhythm; No Murmur or Rub
GI: Soft, Non Tender, Non Distended and Normal Bowel Sounds; No Organomegaly
Rectal: Deferred by Provider
Musculoskeletal: No Clubbing, No Cyanosis and No Edema
Skin: No Rash
Neuro: Nonfocal/grossly intact
Laboratory Results
-
07/31/24 12:37
07/31/24 12:37
Laboratory Results
Total Bilirubin 0.3 mg/dl (0.2-1.3) 07/31/24 12:37
AST 26 U/L (17-59) 07/31/24 12:37
ALT 23 U/L (0-50) 07/31/24 12:37
Alkaline Phosphatase 46 U/L (38-126) 07/31/24 12:37
Data Reviewed
-
Lab Data: Labs Reviewed by me
Old Records: Reviewed
Impression/Plan
-
IMPRESSION:
PLAN:
# Recurrent hematuria secondary to underlying BPH/hemophilia B
# Urinary retention secondary to BPH
# Acute blood loss anemia
-Patient's factor IX is and not enough recombinant factor IX in house to administer, pharmacy will not approve factor 1X
-CBI started
-Hemoglobin 7.3 from 7.8
-1 unit of blood
-1 unit FFP
-Continue tamsulosin
-Urology consulted
Paroxysmal atrial fibrillation
-Not on anticoagulation due to hemophilia
Essential hypertension
-Continue metoprolol
Hyperlipidemia
-Continue statin
Full code
DVT prophylaxis�SCDs
Regular diet
--- NOTE | 2024-07-31 17:05 | CONS.URO ---
Consultation
-
Performing Provider: Jillianfer
Reason for Consultation: Hematuria
Medical History
History of Present Illness
69M with recurrent gross hematuria, BPH, urinary retention
see prior admit and consult notes
Multiple recent admissions for recurrent bleeding due to hemophilia
Was supposed to start his factor at home but hasn't received it yet
Started bleeding again and returned to ER
Past Medical History
Past Medical History: Other (Hemophilia B, urinary retention, BPH)
Social History
Tobacco: Non-smoker
Alcohol: None
Drug: None
Family History
Family History: Reviewed & Not Pertinent
Allergies/Home Medications
Allergies
Allergy/AdvReac Type Severity Reaction Status Date / Time
simvastatin Allergy joint pain Verified 07/21/24 15:36
Home Medications
�Medication �Instructions �Recorded �Confirmed �Type
cholecalciferol (vitamin D3) 50 50 mcg PO QPM Supplement 07/21/24 07/27/24 History
mcg (2,000 unit) tablet (Vitamin
D3)
metoprolol succinate 50 mg 50 mg PO DAILY Heart 07/21/24 07/27/24 History
tablet,extended release 24 hr disease/condition
pravastatin 20 mg tablet 20 mg PO QPM High Cholesterol 07/21/24 07/27/24 History
tamsulosin 0.4 mg capsule 0.8 mg PO MUST ENTER TIMES Urinary 07/21/24 07/27/24 History
issue
Physical Exam
Vital Signs
Vital Signs
Temp Pulse Resp BP Pulse Ox
98.9 F 83 16 131/69 99
07/31/24 16:03 07/31/24 16:03 07/31/24 16:03 07/31/24 16:03 07/31/24 16:30
Lab / Testing Results
Laboratory Results
07/31/24 12:37
07/31/24 12:37
Physical Exam
General: Well Developed, Well Nourished and No Apparent Distress
Respiratory: Clear and Non Labored Respirations
GI: Soft and Non Tender
Genito-urinary: Bloody Urine and Ritchie Catheter
Neuro: AO x 3
Psych: Calm and Intact Judgement
Assessment / Plan
-
69M with hemophilia, recurrent gross hematuria from catheter trauma requiring hospitalization
- Irrigated remaining clots from bladder, urine now mostly clear
- Continue CBI
- NPO at [facility]
- OR tomorrow for cystoscopy, clot evacuation, fulguration of prostate bleeding
- Transfuse as needed
- May be best to remain inpatient until his replacement factor arrives and he is able to start treatment
[2024-07-31] MEDS: VITAMIN D3 (cholecalciferol) PO (18:33)
[2024-07-31] MEDS: PRAVACHOL PO (18:33)
[2024-07-31] MEDS: FLOMAX PO (20:16)
[2024-08-01] VITALS (11 sets, daily range): BP systolic 100–139; BP diastolic 42–73
[2024-08-01 06:58] LABS: % Basophils 0.7 % (0-2); % Immature Granulocytes 0.3 % (0-0.5); % Monocytes 10.2 % (1.7-9.3); % Neutrophils 62.8 % (42.2-75.2); Absolute Basophils 0.1 10^3/uL (0-0.2); Absolute Eosinophils 0.2 10^3/uL (0-0.7); Absolute Lymphocytes 1.7 10^3/uL (1.2-3.4); Absolute Monocytes 0.8 10^3/uL (0.1-0.6); Absolute Neutrophils 4.8 10^3/uL (1.4-6.5); Hematocrit 22.5 % (39.0-52.0); Hemoglobin 7.3 g/dL (13.0-18.0); Mean Corp Hgb Conc. 32.4 g/dL (33.0-37.0); Mean Corpuscular Hgb 31.1 pg (27.0-31.0); Mean Corpuscular Volume 95.7 fL (80.0-94.0); Mean Platelet Volume 9.8 fL (7.4-10.4); Nucleated Red Blood Cells % 0 % (-); Platelet Count 210 10^3/uL (130-400); Red Blood Cell Count 2.35 10^6/uL (4.70-6.10); Red Cell Dist. Width 17.5 % (11.5-14.5); White Blood Cell Count 7.6 10^3/uL (4.8-10.8)
[2024-08-01 07:14] LABS: ALT (SGPT) 19 U/L (0-50); AST (SGOT) 21 U/L (17-59); Albumin 2.8 g/dl (3.5-5.0); Alkaline Phosphatase 38 U/L (38-126); Blood Urea Nitrogen 16 mg/dl (9-20); Calcium 8.3 mg/dl (8.4-10.2); Carbon Dioxide 26 mmol/L (22-30); Chloride 110 mmol/L (98-107); Estimated Creatinine Clearance 77 ml/min; Glucose 90 mg/dl (70-99); Potassium 4.5 mmol/L (3.5-5.1); Sodium 140 mmol/L (135-145); Total Bilirubin 0.3 mg/dl (0.2-1.3); eGFR > 60.00
[2024-08-01] MEDS: TOPROL XL 50 MG PO (07:28)
--- NOTE | 2024-08-01 09:14 | CON.ONC ---
Impression
Impression
- Gross Hematuria
- Hemophilia B
- Moderate to severe anemia due to blood loss
Plan
Plan
# Hemophilia B with active bleeding
- this is patients 3rd admission with hematuria that started after admission for UTI, urinary retention requiring osman. Hematuria temporarily clears with CBI and FFP however returns within days.
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 Denies hx of spontaneous bleeding and has only required factor replacement agents for katerina-operative management (after chest tube placement in 70s for pneumothorax, colonoscopy
w/ polyp resection 2022).
- Suspect his deficiency is contributing to inability to maintain hemostasis after initial improvement on multiple admissions. Urology plans for cystoscopy today and hopefully will be able to identify bleeding site for cauterization. If so then
reasonable to monitor for repeat bleeding however if no site able to be intervened on I feel he would benefit from factor IX replacement to raise factor level > 40% (benefix dose ~ 4,400 units). pharmacy refusing to use home product. With
no active bleeding I feel reasonable to hold off. Pt receiving new shipment tues which can be given if still admitted.
# Anemia
- drop in hgb from baseline 12-13 g/dl to 7.2 g/dl. Has required multiple transfusions during past few admissions for symptomatic anemia, hgb < 7.0 g/dl.
- received 1 unit pRBCs on arrival. Hgb unchanged at 7.3 g/dl today. discussed option of additional unit with active/recent bleeding to get hgb > 8.0 g/dl however he would like to hold off.
- check iron studies. may be hard to interpret with multiple transfusions, inflammation however if ferritin < 100 ng/ml or IS< 25% would proceed with IV iron.
- CBC daily. transfuse for hgb < 7.0 g/dl.
will continue to follow.
Patient History
History of Present Illness
Yo is a 69-year-old male with hematological hx of hemophilia B ( factor IX activity 5% w/ most recent check 06/30/24) who presented with recurrent gross hematuria.
Patient was originally admitted from 06/26 to 06/28 for enterococcal UTI/BPH. He had CT scan which showed moderate bilateral hydronephrosis and evidence of urinary bladder outlet obstruction. He was also found to be in new onset atrial
fibrillation. He was started on metoprolol and Cardizem. PPX AC held due to hemophilia hx. Urology recommended Osman catheter, tamsulosin and course of antibiotics. He was discharged with osman which was removed out-pt however pt was still
experiencing retention and was straight cathing. He presented back to ED on 07/21 due to hematuria, irrigating clots x 1 week with straight cathing. symptoms cleared with CBI and discharged 07/23. He then had second brief admission 07/27-07/29 with
recurrent hematuria that responded to irrigation and FFP. He required blood transfusion on both admissions for symptomatic anemia and drop in hgb < 7.0 g/dl. Hgb prior to hematuria in normal range with most recent normal 06/28 at 13.9 g/dl.
bleeding is thought to be from prostate irritation.
Regarding hx of Hemophilia B, pt follows with at [facility]. His baseline factor 9 activity level is 5%. He denies hx of hemarthroses, spontaneous bleeds. He uses Benefix prior to procedures without hx of serious bleeding complications. Pt has
brought in Benefix he had at home however due to expiration date 2 months ago pharmacy will not approve for dispensing. He has new script filled and should arrive to his home on 08/03. Bleeding already resolved with CBI overnight and dose of FFP.
He received 1 unit pRBCs and hgb unchanged at 7.3 g/dl today. he states he is feeling better though and was able to walk halls without ARMSTRONG. Urology planning for cystoscopy, fulguration today.
Past-Medical/Surgical History
- Hemophilia B
- atrial fibrillation - new onset 06/2024
- HLD
- GERD
Patient Medication
�Medication �Instructions �Recorded �Confirmed �Last Taken �Type
cholecalciferol (vitamin D3) 50 50 mcg PO QPM Supplement 07/21/24 07/31/24 07/31/24 08:00 History
mcg (2,000 unit) tablet (Vitamin
D3)
metoprolol succinate 50 mg 50 mg PO DAILY Heart 07/21/24 07/31/24 07/31/24 08:00 History
tablet,extended release 24 hr disease/condition
pravastatin 20 mg tablet 20 mg PO QPM High Cholesterol 07/21/24 07/31/24 07/31/24 08:00 History
tamsulosin 0.4 mg capsule 0.8 mg PO HS Urinary issue 07/21/24 07/31/24 07/31/24 08:00 History
Active Medications
Generic Name Dose Route Start Last Admin
Trade Name Freq PRN Reason Stop Dose Admin
Cholecalciferol 50 mcg 07/31/24 18:00 07/31/24 18:33
Cholecalciferol (Vitamin D3) 50 Mcg Tablet (2,000 Units) PO 08/28/24 17:59 Not Given
QPM BRITANY
Metoprolol Succinate 50 mg 08/01/24 08:00 08/01/24 07:28
Metoprolol 50 Mg Extended Release Tablet PO 08/29/24 07:59 50 mg
DAILY BRITANY Administration
Pravastatin Sodium 20 mg 07/31/24 18:00 07/31/24 18:33
Pravastatin 20 Mg Tablet PO 08/28/24 17:59 Not Given
QPM BRITANY
Tamsulosin HCl 0.8 mg 07/31/24 22:00 07/31/24 20:16
Tamsulosin 0.4 Mg Capsule PO 08/28/24 21:59 Not Given
HS BRITANY
Review of Systems
-
History Source: Patient
Constitutional: Reports Fatigue; Denies Fever
Respiratory: Denies Cough or Trouble Breathing
Cardiac: Denies Chest Pain
GI: Denies Abdominal Pain or Nausea
: Reports Bleeding; Denies Dysuria or Flank Pain
Neuro: Reports Weakness; Denies Dizzy
Hematologic/Lymphatic: Reports Bleeding and Blood Clots; Denies Bruising
Physical Exam
-
General: Well Developed, Well Nourished and No Apparent Distress
HEENT: Negative Jaundice
Cardiology: Normal Sinus Rhythm
Pulmonary: Clear
Musculoskeletal: No Edema
Extremities: Negative Edema
Neurology: Non Focal and No Lateralizing Symptoms
Hematologic / Lymphatic: Other (pallor)
Labs
Lab Results
WBC 7.6 10^3/uL (4.8-10.8) 08/01/24 06:16
RBC 2.35 10^6/uL (4.70-6.10) L 08/01/24 06:16
Hgb 7.3 g/dL (13.0-18.0) L 08/01/24 06:16
Hct 22.5 % (39.0-52.0) L 08/01/24 06:16
MCV 95.7 fL (80.0-94.0) H 08/01/24 06:16
MCH 31.1 pg (27.0-31.0) H 08/01/24 06:16
MCHC 32.4 g/dL (33.0-37.0) L 08/01/24 06:16
RDW 17.5 % (11.5-14.5) H 08/01/24 06:16
Plt Count 210 10^3/uL (130-400) 08/01/24 06:16
MPV 9.8 fL (7.4-10.4) 08/01/24 06:16
Abs Immat Gran (auto) 0.0 10^3/uL (0-0.05) 08/01/24 06:16
Absolute Neuts (auto) 4.8 10^3/uL (1.4-6.5) 08/01/24 06:16
Absolute Lymphs (auto) 1.7 10^3/uL (1.2-3.4) 08/01/24 06:16
Absolute Monos (auto) 0.8 10^3/uL (0.1-0.6) H 08/01/24 06:16
Absolute Eos (auto) 0.2 10^3/uL (0-0.7) 08/01/24 06:16
Absolute Basos (auto) 0.1 10^3/uL (0-0.2) 08/01/24 06:16
Immature Gran % 0.3 % (0-0.5) 08/01/24 06:16
Neutrophils % 62.8 % (42.2-75.2) 08/01/24 06:16
Lymphocytes % 23.0 % (20.5-51.1) 08/01/24 06:16
Monocytes % 10.2 % (1.7-9.3) H 08/01/24 06:16
Eosinophils % 3.0 % (0-6) 08/01/24 06:16
Basophils % 0.7 % (0-2) 08/01/24 06:16
Creatinine 1.0 mg/dL (0.7-1.3) 08/01/24 06:16
Vital Signs
Vital Signs
Temp Pulse Resp BP Pulse Ox
98.1 F 68 16 106/66 100
08/01/24 07:25 08/01/24 07:25 08/01/24 07:25 08/01/24 07:25 08/01/24 07:25
--- NOTE | 2024-08-01 10:38 | W.PN.HOSP.TC ---
Addendum entered and electronically signed by Bonifacio Thornton MD 08/01/24 15:49:
#IMMANUEL
IV iron while inpatient
Original Note:
Today's Communication/Plan
-
see PN
Assessment / Plan
Assessment / Plan
69yo M with PMHx of Afib, not on AC, hemophilia B manaed by in [facility], [place], HLD, HTN came with recurrent hematuria in [place]. Had Moore placed 2/2 urinary retention due to previous UTI, then later developed hematuria when was self-catheterizing,
so as per urologist had to had Moore placed back, hematuria subsided, however later reoccured and he was admitted second time. CBI provided 3 units PRBC transfused, FFP transfused and hematuria subsided again and patient jose roberto left home. in 48h
redeveloped hematuria with dizziness and came back to the hospital
A/P
#Hematuria, traumatic with acute blood loss anemia, symptomatic
#Acute urinary retention
#Hemophilia B
serial H&H
Transfuse PRBC as needed: hgb stable s/p 1 unit PRBC and 1 unit FFP on admission
Patient has factor IX injection, however couple of months ago - hematology consult for mgmt
CBI and urology consult: plan for cystoscopy, clot evacuation, fulguration of prostate bleeding
Cont Moore
#Afib, paroxysmal
not on AC 2/2 hemophilia
#Essential HTN
#HLD
cont home meds
DVT ppx SCDs
Full code
I have spent at least 57min reviewing chart, test results, communication with consultants and direct patient care
Anticipated Discharge: 24 - 48 hours
Subjective/Interval History
-
Date of Service: August 01, 2024
Objective Data
-
Labs:
Laboratory Results
08/01/24
06:16
WBC 7.6
Hgb 7.3 L
Hct 22.5 L
Plt Count 210
Sodium 140
Potassium 4.5
Chloride 110 H
Carbon Dioxide 26
BUN 16
Creatinine 1.0
Glucose 90
Calcium 8.3 L
Total Bilirubin 0.3
AST 21
ALT 19
Alkaline Phosphatase 38
Vital Signs:
Vital Signs
Temp Pulse Resp BP Pulse Ox
98.1 F 68 16 106/66 100
08/01/24 07:25 08/01/24 07:25 08/01/24 07:25 08/01/24 07:25 08/01/24 07:25
I&O
07/31/24 08/01/24 08/02/24
06:59 06:59 06:59
Intake Total 595 / 595
Output Total 9250 / 9250
Balance -8655 / -8655
Review of Systems
-
History Source: Patient
All other systems: Reviewed and negative
Physical Exam
-
General: No Apparent Distress
HEENT: Normocephalic and Atraumatic
Respiratory: Clear to Auscultation
Cardiac: Regular Rhythm
GI: Soft, Nontender and Nondistended
Genito-urinary: Clear Urine and Continuous Bladder Irrigation
Musculoskeletal: No Clubbing, No Cyanosis and No Edema
Neuro: Awake, Alert, Oriented and AO x 3
Psych: Calm
--- NOTE | 2024-08-01 11:49 | W.PN.URO.CBU ---
Today's Communication / Plan
-
OR for fulguration today
Assessment / Plan
-
69M with hemophilia, recurrent gross hematuria from catheter trauma requiring hospitalization
- NPO
- OR today for cystoscopy, fulguration of prostate bleeding
- Transfuse as needed
- To prevent another readmission, it may be best for him to remain inpatient until his replacement factor arrives at his pharmacy and he is able to start treatment
Diagnosis
-
Date of Service: August 01, 2024
-
Patient Diagnosis:
Recurrent gross hematuria and clot retention
Prostate trauma
Hemophilia B
Post Op Day:
Subjective
-
No bleeding overnight
Hematuria resolved on slow CBI
Objective
-
Vital Signs
Temp Pulse Resp BP Pulse Ox
98.1 F 68 16 106/66 100
08/01/24 07:25 08/01/24 07:25 08/01/24 07:25 08/01/24 07:25 08/01/24 07:25
Intake and Output
07/31/24 08/01/24 08/02/24
06:59 06:59 06:59
Intake Total 595 / 595
Output Total 9250 / 9250
Balance -8655 / -8655
Intake:
Blood Product Amount Infused ( 595 / 595
mL)
Fresh Frozen Plasma 24 Hours 345 / 345
Unit [id number]
Packed Rbc Leukoreduced Unit 250 / 250
[id number]
Output:
Urine, Ritchie 1550 / 1550
True Urine Output from CBI 7700 / 7700
Laboratory Results
08/01/24 06:16
Physical Exam
-
General - well developed, well nourished, no acute distress
Ritchie in place, clear urine on CBI
[2024-08-01 13:06] LABS: Iron 36 ug/dl (49-181)
[2024-08-01 13:15] LABS: Percent Saturation 13 % (20-50); Total Iron Binding Capacity 266 ug/dl (261-462)
[2024-08-01 14:06] LABS: Ferritin 53.9 ng/ml (17.9-464.0)
--- NOTE | 2024-08-01 16:08 | W.IMMPOSTOP ---
Surgical Immed Post Op Note
-
Primary Surgeon: Jillianfer
Assisting Surgeon: none
Pre-op Diagnosis: Recurrent hematuria, prostate trauma
Post-op Diagnosis: same
Procedure Performed: Cystoscopy, clot evacuation, fulguration
Anesthesia Type: gen
Specimen / Cultures: none
Estimated Blood Loss: 1cc
Complications: none
Operative Findings: Traumatic injury to prostatic urethra on the R side of verumontanum. Region fulgurated with good hemostasis
Enlarged and obstructive appearing prostate with high bladder neck
Bladder wall with moderate trabeculation and some small diverticuli
--- NOTE | 2024-08-01 16:30 | PTCARENOTE ---
Pt was received from PACU at 1630. Pt is AAOx3, VSS, 3-way catheter in place, draining light pink urine. Pt reporting a mild burning sensation in penis and bladder area. Pt resting in bed.
[2024-08-01] MEDS: FERRLECIT 110 MG IV (16:44)
[2024-08-01] MEDS: VITAMIN D3 (cholecalciferol) 50 MCG PO (17:50)
[2024-08-01] MEDS: PRAVACHOL 20 MG PO (17:50)
[2024-08-01 18:10] LABS: Hematocrit 26.9 % (39.0-52.0); Hemoglobin 8.6 g/dL (13.0-18.0)
--- NOTE | 2024-08-01 20:00 | PTCARENOTE ---
Dr Kim notified that patient started to have a small amount of blood around the catheter site and the osman is draining clear punch colored urine. No new orders given at this time and will continue to monitor.
[2024-08-01] MEDS: FLOMAX 0.8 MG PO (21:47)
[2024-08-02 03:15] VITALS: BP 106/51
[2024-08-02 07:35] VITALS: BP 111/61
[2024-08-02] MEDS: TOPROL XL 50 MG PO (08:53)
--- NOTE | 2024-08-02 09:30 | W.PN.URO.CBU ---
Today's Communication / Plan
-
Trial of ambulation
Discharge today if bleeding stopped
Assessment / Plan
-
69M with hemophilia, recurrent gross hematuria from catheter trauma requiring hospitalization
- s/p cystoscopy, fulguration of prostate bleeding at [facility] 08/01
- Trend HGB, transfuse as needed
- To prevent another readmission, it may be best for him to remain inpatient until his replacement factor arrives at his pharmacy and he is able to start treatment. He states it will arrive at his home tomorrow and he needs to sign for it, so
discharge today may be ideal.
- Advised patient to apply catheter traction with any further bleeding episodes to help prevent clot retention and stop bleeding more quickly
Okay for discharge today if bleeding remains controlled with ambulation
Diagnosis
-
Date of Service: August 02, 2024
-
Patient Diagnosis:
Recurrent gross hematuria and clot retention
Prostate trauma
Hemophilia B
Post Op Day:
Subjective
-
Some bleeding around catheter post op has resolved today
Objective
-
Vital Signs
Temp Pulse Resp BP Pulse Ox
98.6 F 76 18 111/61 99
08/02/24 07:35 08/02/24 07:35 08/02/24 07:35 08/02/24 07:35 08/02/24 07:35
Intake and Output
08/01/24 08/02/24 08/03/24
06:59 06:59 06:59
Intake Total 595 / 595 530 / 530 180 / 180
Output Total 9250 / 9250 4700 / 4700
Balance -8655 / -8655 -4170 / -4170 180 / 180
Intake:
Oral fluids 480 / 480 180 / 180
IV fluids (Total) 50 / 50
normosol 50 / 50
Blood Product Amount Infused ( 595 / 595
mL)
Fresh Frozen Plasma 24 Hours 345 / 345
Unit [id number]
Packed Rbc Leukoreduced Unit 250 / 250
[id number]
Output:
Urine, Ritchie 1550 / 1550 4700 / 4700
True Urine Output from CBI 7700 / 7700
Laboratory Results
08/01/24 06:16
Physical Exam
-
General - well developed, well nourished, no acute distress
Ritchie in place, completely clear urine off CBI
[2024-08-02 09:37] LABS: Hematocrit 26.6 % (39.0-52.0); Hemoglobin 8.3 g/dL (13.0-18.0)
--- NOTE | 2024-08-02 09:45 | W.PN.HOSP.TC ---
Today's Communication/Plan
-
Discharge today once clotting factor infusion has been set up for tomorrow 08/03
Assessment / Plan
Assessment / Plan
69yo M with PMHx of Afib, not on AC, hemophilia B manaed by in [facility], HLD, HTN came with recurrent hematuria in [place]. Had Moore placed 2/2 urinary retention due to previous UTI, then later developed hematuria when was self-catheterizing,
so as per urologist had to had Moore placed back, hematuria subsided, however later reoccured and he was admitted second time. CBI provided 3 units PRBC transfused, FFP transfused and hematuria subsided again and patient jose roberto left home. in 48h
redeveloped hematuria with dizziness and came back to the hospital
A/P
#Hematuria, traumatic with acute blood loss anemia, symptomatic
#Acute urinary retention
#Hemophilia B
serial H&H
Transfuse PRBC as needed: hgb stable s/p 1 unit PRBC and 1 unit FFP on admission
Patient has factor IX injection, however couple of months ago - hematology consult for mgmt
S/p cystoscopy, clot evacuation, fulguration of prostate bleeding 08/01
Cont Moore
Discharge today once clotting factor infusion has been set up for tomorrow 08/03
#Afib, paroxysmal
not on AC 2/2 hemophilia
#Essential HTN
#HLD
cont home meds
DVT ppx SCDs
Full code
Total time spent to see the patient on the floor, examine the patient, review data and lab results, discuss treatment plan with patient, nursing staff around 50 minutes.
Physical Exam
General: No acute distress
HEENT: Normocephalic, Atraumatic, EOMI, MMM
Respiratory: Clear to Auscultation bilaterally
Cardiac: Normal S1/S2, Regular Rate and Rhythm
GI: Soft, Nontender, Nondistended, Normal Bowel Sounds
: Moore with clear yellow urine
Extremities: No Clubbing, Cyanosis, or Edema
Neuro: Nonfocal/Grossly Intact
Psych: Calm, Cooperative
Derm: No Visible lesions
Anticipated Discharge: Today
Subjective/Interval History
-
Date of Service: August 02, 2024
Hematuria resolved. Patient feels well. No chest pain, no shortness of breath. No fever, no vomiting.
Objective Data
-
Labs:
Laboratory Results
08/02/24
08:14
Hgb 8.3 L
Hct 26.6 L
Vital Signs:
Vital Signs
Temp Pulse Resp BP Pulse Ox
98.6 F 76 18 111/61 99
08/02/24 07:35 08/02/24 07:35 08/02/24 07:35 08/02/24 07:35 08/02/24 07:35
I&O
08/01/24 08/02/24 08/03/24
06:59 06:59 06:59
Intake Total 595 / 595 530 / 530 180 / 180
Output Total 9250 / 9250 4700 / 4700
Balance -8655 / -8655 -4170 / -4170 180 / 180
[2024-08-02] MEDS: FERRLECIT 110 MG IV (13:18)
[2024-08-02 15:36] VITALS: BP 137/63
--- NOTE | 2024-08-02 16:18 | W.PN.ONC2 ---
Today's Communication / Plan
-
Discussed with primary service, pharmacy, OID, pt, and CM plan for OP Benefix once delivery received. OID/pharmacy awaiting drug and primary hematology order/H&P to schedule administration.
Impression
Impression
- Gross Hematuria
- Hemophilia B
- Moderate to severe anemia due to blood loss
Plan
Plan
# Hemophilia B with active bleeding
- this is patients 3rd admission with hematuria that started after admission for UTI, urinary retention requiring osman. Hematuria temporarily clears with CBI and FFP however returns within days.
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 Denies hx of spontaneous bleeding and has only required factor replacement agents for katerina-operative management (after chest tube placement in 70s for pneumothorax, colonoscopy
w/ polyp resection 2022).
- Suspect his deficiency is contributing to inability to maintain hemostasis after initial improvement on multiple admissions.
-I feel he would benefit from factor IX replacement to raise factor level > 40% (benefix dose ~ 4,400 units).
- pharmacy refusing to use home product. With no active bleeding I feel reasonable to hold off for now
# Anemia
- drop in hgb from baseline 12-13 g/dl to 7.2 g/dl. Has required multiple transfusions during past few admissions for symptomatic anemia, hgb < 7.0 g/dl.
- check iron studies. may be hard to interpret with multiple transfusions, inflammation however if ferritin < 100 ng/ml or IS< 25% would proceed with IV iron.
- CBC daily. transfuse for hgb < 7.0 g/dl.
will continue to follow.
Subjective/Objective
Subjective
hematuria resolved
Vital Signs:
Vital Signs
Temp Pulse Resp BP Pulse Ox
98.1 F 74 16 137/63 99
08/02/24 15:36 08/02/24 15:36 08/02/24 15:36 08/02/24 15:36 08/02/24 15:36
Lab Results:
Laboratory Data
WBC 7.6 10^3/uL (4.8-10.8) 08/01/24 06:16
Hgb 8.3 g/dL (13.0-18.0) L 08/02/24 08:14
Plt Count 210 10^3/uL (130-400) 08/01/24 06:16
eGFR > 60.00 08/01/24 06:16
--- NOTE | 2024-08-02 16:23 | CM ---
Addendum entered by Veronica Whiting 08/02/24 17:56:
spoke with Yo prior to discharge. He found out that [facility] will provide the infusion for a cost of $200 which he was very happy to accept. He was eager to leave the hospital to get home.
Ponce's son provided transport home.
Original Note:
Karan reports he lives with his in a 2 story home; 2 steps to enter, 14 steps to 2nd floor. Yo is ndependent in ambulation and adls, drives and lives an active lifestyle.
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 Currently their sons are assisting his at home.
No history of SNF, no DME in the home. He has had [facility] in the past, but cannot recall the name of the agency.
One of Yo's sons will pick him up at discharge.
Plan: Discharge to home with plan for outpatient infusion which is being coordinated between [facility].
PCP - Manoj Pinto
Pharm - [facility] [place]
[2024-08-02] MEDS: PRAVACHOL PO (17:33)
[2024-08-02] MEDS: VITAMIN D3 (cholecalciferol) PO (17:34)
--- NOTE | 2024-08-02 17:36 | W.DCSUMMARY ---
Discharge Summary
Discharge Data
Date of Admission: 07/31/24
Date of Discharge: 08/02/24
-
Pending Results: No
Hospital Course
Discharge diagnosis:
Acute traumatic hematuria
Prostate trauma/bleeding
Acute blood loss anemia
Acute urinary retention requiring Ritchie
Hemophilia B
Paroxysmal atrial fibrillation not on anticoagulation
Essential hypertension
Hyperlipidemia
Consults: Urology, hematology
Procedures:
08/01/2024
Cystourethroscopy, clot evacuation, fulguration of prostate bleeding.
Hospital course:
69-year-old male with a past medical history BPH, urinary retention requiring Ritchie, hemophilia B, atrial fibrillation, hypertension, and hyperlipidemia was admitted for recurrent hematuria secondary to hemophilia B. Patient's hemoglobin was 7.3
upon admission. He did receive 1 unit of packed red blood cells and 1 unit of fresh frozen plasma. His hemoglobin improved to 8.6, and remained stable at 8.3.
Patient was seen in conjunction with urology. He underwent CBI, and cystourethroscopy, clot evacuation, and fulguration of prostate bleeding on 08/01/2024. His hematuria resolved.
Patient was seen in conjunction with hematology. He was arranged to have his factor transfused on 08/03/2024 via his home nurse. He is medically stable and cleared by both urology and hematology for discharge. He needs to follow-up with
hematology and urology in the office in 1-2 weeks, as well as his primary care doctor in 1 week.
Disposition: Home with home care
Discharge planning: Required 50 minutes
Discharge Plan
-
Patient Disposition: Home with Home Care
Discharge Diagnosis/Procedures: Hematuria, hemophilia B, acute urinary retention
Condition: Fair
Diet: Low Cholesterol and Low Fiber
Activity: As tolerated
Driving Restrictions: As prior to admission
Activity Restrictions/Additional Instructions:
Make sure you get your clot factor infusion on 08/03/2024.
Follow-up with urology in the office, hematology in the office, and your primary care doctor in 1 week.
Referrals:
Farhad Kim MD [Active] - in one to two weeks
Manoj Pinto DO [Family Provider] - in one week
Prescriptions:
Continued
pravastatin 20 mg Tablet
20 mg PO QPM
cholecalciferol (vitamin D3) [Vitamin D3] 50 mcg (2,000 unit) Tablet
50 mcg PO QPM
metoprolol succinate 50 mg tablet extended release 24 hr
50 mg PO DAILY
tamsulosin 0.4 mg capsule
0.8 mg PO HS
Discharge Orders:
Discharge Patient (As Directed); Ordered 08/02/24
Ordered By: Gama Li
Discharge Date and Time
Print Language: [place]IZ[place]
== END 2024-08-02 18:15 | disposition home health service (06) | DRG 698 ==
LOC: 4 EAST ACU 16:50
PROVIDERS: Emergency Medicine; Internal Medicine; ADMITTING PHYSICIAN Hospitalist; ATTENDING PHYSICIAN Family Medicine; CONSULT PHYSICIAN Internal Medicine Hematology & Oncology; CONSULT PHYSICIAN Urology; EMERGENCY PHYSICIAN Student in an Organized Health Care Education/Training Program; FAMILY PHYSICIAN Internal Medicine
PROC: 30233N1 Transfusion of Nonautologous Red Blood Cells into Peripheral Vein, Percutaneous Approach (ICD-10-PCS; 2024-07-31)
PROC: 30233K1 Transfusion of Nonautologous Frozen Plasma into Peripheral Vein, Percutaneous Approach (ICD-10-PCS; 2024-07-31)
PROC: 0TCB8ZZ Extirpation of Matter from Bladder, Via Natural or Artificial Opening Endoscopic (ICD-10-PCS; 2024-08-01)
PROC: 0T5D8ZZ Destruction of Urethra, Via Natural or Artificial Opening Endoscopic (ICD-10-PCS; 2024-08-01)
DX: S37.30XA Unspecified injury of urethra, initial encounter (principal); D67 Hereditary factor IX deficiency; N13.8 Other obstructive and reflux uropathy; D62 Acute posthemorrhagic anemia; N40.1 Benign prostatic hyperplasia with lower urinary tract symptoms; R31.0 Gross hematuria; N32.0 Bladder-neck obstruction; E78.00 Pure hypercholesterolemia, unspecified; K21.9 Gastro-esophageal reflux disease without esophagitis; Z87.442 Personal history of urinary calculi; I48.0 Paroxysmal atrial fibrillation; I10 Essential (primary) hypertension; R33.8 Other retention of urine; N32.3 Diverticulum of bladder; Y84.6 Urinary catheterization as the cause of abnormal reaction of the patient, or of later complication, without mention of misadventure at the time of the procedure
CPT/HCPCS: 36430; 80053; 82728; 83540; 83550; 85014; 85018; 85025; 86850; 86900; 86901; 86920; 99285; J2916; P9016; P9059

== ENCOUNTER → 2025-05-06 09:26 | Outpatient (REF) | payer SELFPAY | LOC: HWRAD 09:26 | PROVIDERS: ATTENDING PHYSICIAN Internal Medicine | DX: Z13.9 Encounter for screening, unspecified (principal); E78.5 Hyperlipidemia, unspecified | CPT/HCPCS: 75571 ==